=== PATIENT | female | born 1935 ===

== ENCOUNTER 2017-02-12 11:26 | Inpatient (IN) | payer MEDICARE, OTHER ==
[2017-02-12] VITALS (11 sets, daily range): BP systolic 98–151; BP diastolic 39–68; PULSE 68–102; RESP 17–18; Ht 160 cm; Wt 52.7 kg
[~2017-02-12] VITALS: Ht 160 cm; Wt 52.7 kg
--- NOTE | 2017-02-12 11:46 | ERD ---
ER Documentation Chief Complaint Chief Complaint Weakness and altered mental status HPI Patient is nonverbal and is unable to provide any history obtained partly from transferring paramedics and the patient's family. 81-year-old female with a history of hypertension and severe dementia presents to the ED via rescue ambulance with worsening weakness and altered mental status. As per family patient was in her usual state of health until 2 weeks ago when she began to have a rapid decline. She was recently placed in hospice care and over the last 4-5 days has had no oral intake and has worsened significantly and now not responsive. Family has changed her request regarding resuscitation status and care and now would like everything possible done to return the patient to her former physical condition. No documented fevers. No further history available. ROS Unobtainable except as per HPI due to the patient's clinical condition Medications Home Meds Reported Medications Risperidone* (Risperdal*) 0.25 Mg Tablet, 0.25 MG PO BID, TAB 02/12/17 Trazodone Hcl* (Trazodone Hcl*) 150 Mg Tablet, 150 MG PO QHS, #30 TAB 02/12/17 Tramadol Hcl* (Ultram*) 50 Mg Tablet, 50 MG PO BID Y for PAIN, TAB 02/12/17 Citalopram Hydrobromide* (Citalopram Hydrobromide*) 40 Mg Tablet, 40 MG PO QAM, #30 TAB 02/12/17 Oxybutynin Chloride* (Ditropan*) 5 Mg Tab, 5 MG PO BID, TAB 02/12/17 Gabapentin* (Gabapentin*) 300 Mg Capsule, 300 MG PO BID, #60 CAP 02/12/17 Lovastatin* (Lovastatin*) 20 Mg Tablet, 20 MG PO HS, TAB 02/12/17 Allergies Allergies: Coded Allergies: Unable to Assess (Verified Allergy, Severe, 02/12/17) PMhx/Soc Reviewed in chart. As per HPI. Was on hospice care until today. History of Surgery: No Hx Neurological Disorder: Yes (Alzheimer's disease) Hx Respiratory Disorders: No Hx Cardiac Disorders: Yes (Hypertension) Hx Psychiatric Problems: No Hx Miscellaneous Medical Probl: Yes (Osteoporosis) Hx Alcohol Use: No Hx Substance Use: No Hx Tobacco Use: No FmHx No family history relevant to presenting complaint Physical Exam Vitals Vital Signs Date Time Temp Pulse Resp B/P Pulse Ox O2 Delivery O2 Flow Rate FiO2 02/12/17 13:27 90 19 129/101 100 Nasal Cannula 4.0 02/12/17 13:11 94 19 123/62 100 Nasal Cannula 2.0 02/12/17 12:20 Nasal Cannula 2 02/12/17 12:18 93 21 100/68 100 Physical Exam Const: Unresponsive. Severe distress Head: Atraumatic Eyes: Normal Conjunctiva ENT: Normal External Ears, Nose and Mouth. MM Dry. Neck: No JVD. Nontender. Resp: Poor respiratory effort. Diminished at the bases. No rales, rhonchi or wheezes. Cardio: Regular rate and rhythm, no murmurs Abd: Soft, non tender, no masses. No rebound or guarding. Skin: No petechiae or rashes. Pale. poor skin turgor Back: No midline or flank tenderness Ext: No cyanosis, or edema Neur: Unresponsive Physical exam is truncated due to the constraints imposed by the patient's clinical condition Result Diagram: 02/12/17 1215 02/12/17 1215 Results 24 hrs Laboratory Tests Test 02/12/17 12:15 02/12/17 13:00 White Blood Count 22.610^3/ul Red Blood Count 3.9510^6/ul Hemoglobin 12.5g/dl Hematocrit 41.6% Mean Corpuscular Volume 105.3fl Mean Corpuscular Hemoglobin 31.6pg Mean Corpuscular Hemoglobin Concent 30.0g/dl Red Cell Distribution Width 14.6% Platelet Count 08738^3/UL Mean Platelet Volume 12.7fl Neutrophils % % Segmented Neutrophils % (Manual) 72% Band Neutrophils % (Manual) 12% Lymphocytes % % Lymphocytes % (Manual) 9% Monocytes % % Monocytes % (Manual) 5% Eosinophils % % Basophils % % Metamyelocytes % (manual) 2% Nucleated Red Blood Cells % 0.2/100WBC Neutrophils # 10^3/ul Neutrophils # (Manual) 16.910^3/ul Band Neutrophils # 2.710^3/ul Absolute Lymphocytes (Manual) 2.010^3/ul Lymphocytes # 10^3/ul Monocytes # 10^3/ul Absolute Monocytes (Manual) 1.110^3/ul Eosinophils # 10^3/ul Basophils # 10^3/ul Metamyelocytes # 0.410^3/ul Nucleated Red Blood Cells # 10^3/ul Platelet Estimate NORMAL Poikilocytosis 1+ Anisocytosis 1+ Macrocytosis 1+ Prothrombin Time 17.2Sec Prothrombin Time Ratio 1.3 INR International Normalized Ratio 1.38 Activated Partial Thromboplast Time 29.5Sec Sodium Level 178mmol/L Potassium Level 6.3mmol/L Chloride Level 141mmol/L Carbon Dioxide Level 18mmol/L Anion Gap 25 Blood Urea Nitrogen 215mg/dl Creatinine 8.60mg/dl Glucose Level 151mg/dl Lactic Acid Level 2.0mmol/L Calcium Level 9.1mg/dl Total Bilirubin 0.0mg/dl Direct Bilirubin 0.00mg/dl Indirect Bilirubin 0.0mg/dl Aspartate Amino Transf (AST/SGOT) 64IU/L Alanine Aminotransferase (ALT/SGPT) 80IU/L Alkaline Phosphatase 154IU/L Troponin I 0.134ng/ml Total Protein 6.4g/dl Albumin 3.2g/dl Globulin 3.20g/dl Albumin/Globulin Ratio 1.00 Urine Color YELLOW Urine Clarity TURBID Urine pH 7.0 Urine Specific [place] 1.015 Urine Ketones TRACEmg/dL Urine Nitrite NEGATIVEmg/dL Urine Bilirubin NEGATIVEmg/dL Urine Urobilinogen 2+mg/dL Urine Leukocyte Esterase 3+Matheus/ul Urine Microscopic RBC 46/HPF Urine Microscopic WBC > 182/HPF Urine Squamous Epithelial Cells FEW/HPF Urine Bacteria MANY/HPF Urine Granular Casts MODERATE/HPF Urine Mucus FEW/HPF Urine Hemoglobin NEGATIVEmg/dL Urine Glucose NEGATIVEmg/dL Urine Total Protein 3+mg/dl Current Medications Medications (Trade) Dose Ordered Sig/Loy Route PRN Reason Start Time Stop Time Status Last Admin Dose Admin Sodium Chloride 1860 ml 1,860 ml BOLUS OVER 2 HOURS STAT IV* 02/12/17 11:48 02/12/17 11:51 DC 02/12/17 12:21 Cefepime HCl 50 ml @ 100 mls/hr ONCE STAT IVPB 02/12/17 11:48 02/12/17 12:17 DC 02/12/17 12:49 Vancomycin HCl (Vancocin) 250 ml @ 125 mls/hr ONCE ONCE IVPB 02/12/17 12:00 02/12/17 13:59 DC 02/12/17 13:11 Albuterol (Proventil 0.5% (Neb)) 15 mg ONCE STAT INH 02/12/17 13:31 02/12/17 13:34 DC 02/12/17 14:11 Sodium Bicarbonate (Na Bicarb 8.4% Syg) 50 ml ONCE STAT IV 02/12/17 13:31 02/12/17 13:34 DC 02/12/17 13:53 Calcium Chloride (Ca Chloride 10% Syg) 1,000 mg ONCE STAT IV 02/12/17 13:31 02/12/17 13:34 DC 02/12/17 13:54 Insulin Human Regular (Humulin R) 10 unit ONCE STAT IV 02/12/17 13:31 02/12/17 13:34 DC 02/12/17 14:01 LABS: Leukocytosis, elevated BUN/creatinine, hyperkalemia, hypernatremia, pyuria EKG: TIME: 12: 03. Sinus tachycardia. Ventricular rate 97. Second-degree AV block Mobitz type I. Incomplete right bundle branch block. Q waves in leads II , III and aVF. No acute ST segment elevation or depression. EP Interpretation : Abnormal EKG. IMAGING: PROCEDURE: XR Chest. CLINICAL INDICATION: Possible Sepsis TECHNIQUE: Frontal chest x-ray was obtained. COMPARISON: None. FINDINGS: Heart is not enlarged. Mediastinum is not widened. No hilar mass is seen. Lungs are clear of any infiltrates. There is a questionable 15 mm suprahilar noncalcified nodule in the left lung. No effusion or pneumothorax is seen. IMPRESSION: No evidence for active cardiopulmonary disease. Question suprahilar nodule left lung. Consider CT for further evaluation. .Niraj Tee MD, MD Date Time Electronically viewed and signed by .Niraj Tee MD, on 02/12/2017 13: 04 .A/ Procedures/MDM DOCUMENTS REVIEWED: ED nurse, no prior records MEDICAL DECISION MAKIN-year-old female with a history of hypertension and severe dementia presents to the ED via rescue ambulance with worsening weakness and altered mental status. Recently on hospice care but family change her mind today. Patient with multiple criteria for systemic inflammatory response syndrome and severe sepsis. Good renal failure and severe dehydration likely secondary to decreased oral intake. Critical hyperkalemia with EKG changes treated aggressively. Extensive counseling of patient's family regarding resuscitation status and they have agreed to DNR/DNI but would like everything done short of intubation and chest compressions. Further palliative care consultation will be necessary. Conversation is pending regarding dialysis. Patient's infectious symptoms have not stabilized and the patient is at risk of rapid decompensation. The patient will be admitted for aggressive hydration, antibiotic therapy, nephrology consultation and infectious source control. Severe Sepsis criteria: Infectious source: Urinary tract infection End organ damage indicated by: Lactate: 2.0 mmol/L Hypotension (SBP < 90 or >40 mmHG drop or MAP < 65) Pantry Steward/Stewardess > 2.0 Sepsis Management: Time of recognition of severe sepsis/septic shock: 12:00 Within 3 hours of recognition: Blood cultures x 2 before broad-spectrum antibiotics: Yes 30 ml/kg NS bolus Completed Initial lactate 2.0 Repeat lactate Pending Septic Shock Assessment: Any lactic acid > 4.0 No Persistent hypotension (SBP < 90 or 40 mmHg drop, MAP < 65) despite 30 mL/kg IV fluid bolus No Accepting Care Team Current data and ongoing care discussed. Time: 13:30 Admitting Physician: Dr Tarik Hope Mammal Keeper(s): Dr Reed Outstanding Data: Repeat lactate Critical Care Time: 45 minutes Treatments/Evaluations: Close monitoring and treatment of unstable vital signs, cardiorespiratory, and neurologic status, while maintaining tight balance of fluid, respiratory, and cardiac interventions. This includes the administration of emergency fluid management while maintaining close respiratory support as well as the provision of immediate and broad-spectrum antibiotic therapy, while performing a simultaneous assessment for possible sources in order to direct targeted therapy. This time includes extensive counseling of the patient's family. This time also includes the consideration for invasive and chemical support to prevent cardiopulmonary collapse. This time does not include all procedures stated elsewhere in this record. This time also includes reviewing old records, labs and radiological studies. This time includes examining and re- examining the patient. Additionally, this time also includes arranging care with admitting and consulting physicians. Counseled family regarding diagnosis, diagnostic results and plan for admission. CALLS/CONSULTS: Time 13:30, Dr. Hope, agrees with admission to telemetry and requests nephrology consultation with Dr Reed. CALLS/CONSULTS: Time 13:40, Dr. Reed, Recommends IV hydration, Amin catheter , consent for dialysis and will consult. PATIENT CARE TRANSITIONED: Time: 13:40, Dr. Hope. Departure Diagnosis: Primary Impression: Severe sepsis Additional Impressions: Acute renal failure Acute renal failure type: unspecified Qualified Code: N17.9 - Acute renal failure, unspecified acute renal failure type Hyperkalemia Severe dehydration Urinary tract infection Urinary tract infection type: site unspecified Hematuria presence: without hematuria Qualified Code: N39.0 - Urinary tract infection without hematuria, site unspecified DNR (do not resuscitate) Condition: Critical LISA LEE MD Feb 12, 2017 11:46 Critical Care Time: 45 minutes Treatments/Evaluations: Close monitoring and treatment of unstable vital signs, cardiorespiratory, and neurologic status, while maintaining tight balance of fluid, respiratory, and cardiac interventions. This includes the administration of emergency fluid management while maintaining close respiratory support as well as the provision of immediate and broad-spectrum antibiotic therapy, while performing a simultaneous assessment for possible sources in order to direct targeted therapy. This time includes discussing the case with the patient and the patient's family. This time also includes the consideration for invasive and chemical support to prevent cardiopulmonary collapse. This time does not include all procedures stated elsewhere in this record. This time also includes reviewing old records, labs and radiological studies. This time includes examining and re-examining the patient. Additionally, this time also includes arranging care with admitting and consulting physicians. Counseled family regarding diagnosis, diagnostic results and plan for admission. CALLS/CONSULTS: Time 13:30, Dr. Hope, Recommends []. CALLS/CONSULTS: Time 13:40, Dr. Reed, Recommends IV hydration, Amin catheter and will consult. PATIENT CARE TRANSITIONED: Time: 13:40, Dr. Hope. Departure Diagnosis: Primary Impression: Severe sepsis Additional Impressions: Acute renal failure Acute renal failure type: unspecified Qualified Code: N17.9 - Acute renal failure, unspecified acute renal failure type Hyperkalemia Severe dehydration Urinary tract infection Urinary tract infection type: site unspecified Hematuria presence: without hematuria Qualified Code: N39.0 - Urinary tract infection without hematuria, site unspecified DNR (do not resuscitate) Condition: Critical LISA LEE MD Feb 12, 2017 11:46
[2017-02-12] MEDS ORDERED: CEFEPIME 2GM/50 ML (PMX) 50 ML IVPB STA (11:48)
[2017-02-12] MEDS ORDERED: SODIUM CHLORIDE 0.9% 1L BAG IV* STA (11:48)
[2017-02-12] MEDS ORDERED: VANCOMYCIN 1 GM (PMX) 250 ML IVPB ONE (12:00)
[2017-02-12 12:38] LABS: HEMATOCRIT 41.6 % (37.0-47.0); HEMOGLOBIN 12.5 g/dl (12.0-16.0); MEAN CORPUSCULAR HEMOGLOBIN 31.6 pg (29.0-33.0); MEAN CORPUSCULAR VOLUME 105.3 fl (82.0-101.0); MEAN PLATELET VOLUME 12.7 fl (7.4-10.4); NUCLEATED RED BLOOD CELLS% 0.2 /100WBC (0.0-0.0); PLATELET COUNT 209 10^3/UL (140-415); RED BLOOD COUNT 3.95 10^6/ul (4.20-5.40); RED CELL DISTRIBUTION WIDTH 14.6 % (11.5-14.5); WHITE BLOOD COUNT 22.6 10^3/ul (4.8-10.8)
[2017-02-12 12:55] LABS: POSITIVE DIFF @See below
[2017-02-12 13:04] LABS: INR 1.38; PARTIAL THROMBOPLASTIN TIME 29.5 Sec (25.0-35.0); PROTIME 17.2 Sec (11.9-14.9); PT RATIO 1.3
--- NOTE | 2017-02-12 13:04 | RADRPT ---
PROCEDURE: XR Chest. CLINICAL INDICATION: Possible Sepsis TECHNIQUE: Frontal chest x-ray was obtained. COMPARISON: None. FINDINGS: Heart is not enlarged. Mediastinum is not widened. No hilar mass is seen. Lungs are clear of any inf iltrates. There is a questionable 15 mm suprahilar noncalcified nodule in the left lung. No effusion or pneumothorax is seen. IMPRESSION: No evidence for active cardiopulmonary disease. Question suprahilar nodule left lung. Consider CT fo r further evaluation. .Niraj Tee MD, MD Date Time Electronically viewed and signed by .Niraj Tee MD, MD on 02/12/2017 13:04 .A/
[2017-02-12 13:13] LABS: ADD UMIC YES; UR ASCORBIC ACID 20 mg/dL (NEGATIVE); UR BACTERIA MANY /HPF (NONE SEEN); UR BILIRUBIN (Dip) NEGATIVE (NEGATIVE); UR BLOOD (Dip) NEGATIVE (NEGATIVE); UR CLARITY TURBID (CLEAR); UR COLOR YELLOW (YELLOW); UR GLUCOSE (Dip) NEGATIVE (NEGATIVE); UR KETONES (Dip) TRACE mg/dL (NEGATIVE); UR LEUKOCYTE ESTERASE (Dip) 3+ Leu/ul (NEGATIVE); UR MUCUS FEW /HPF (NONE SEEN); UR NITRITE (Dip) NEGATIVE (NEGATIVE); UR NONSQUAMOUS EPITHELIAL CELL 2 /HPF (NONE SEEN); UR RBC 46 /HPF (0-5); UR SPECIFIC GRAVITY (Dip) 1.015 (1.003-1.030); UR SQUAMOUS EPITHELIAL CELL FEW /HPF (FEW); UR TOTAL PROTEIN (Dip) 3+ mg/dl (NEGATIVE); UR UROBILINOGEN (Dip) 2+ mg/dL (NEGATIVE)
[2017-02-12 13:16] LABS: ALBUMIN 3.2 g/dl (3.3-4.9); CALCIUM 9.1 mg/dl (8.4-10.2); TOTAL PROTEIN 6.4 g/dl (6.1-8.1)
[2017-02-12 13:18] LABS: CREATININE 8.6 mg/dl (0.44-1.00); POTASSIUM 6.3 mmol/L (3.5-5.1)
[2017-02-12 13:24] LABS: ANISOCYTOSIS 1+ (0-0); METAMYELOCYTES %M 2 % (0-0); MONOCYTES % (M) 5 % (0-11); PLATELET ESTIMATE NORMAL; POIKILOCYTOSIS 1+ (0-0)
[2017-02-12] MEDS ORDERED: ALBUTEROL 0.5% (NEB) 2.5 MG/0.5 ML AMP INH STA (13:31)
[2017-02-12] MEDS ORDERED: NA BICARBONATE 8.4% 50 ML SYG IV STA (13:31)
[2017-02-12] MEDS ORDERED: CA CHLORIDE 10% 10 ML SYRINGE IV STA (13:31)
[2017-02-12] MEDS ORDERED: INSULIN REGULAR, HUMAN 100 UNIT/1 ML 3ML VIAL IV STA (13:31)
[2017-02-12 13:36] LABS: TROPONIN-I 0.134 ng/ml (0.00-0.12)
[2017-02-12] MEDS ORDERED: DEXTROSE 50% 50 ML SYRINGE IV PRN (14:00)
[2017-02-12] MEDS ORDERED: LIDOCAINE 1% (MPF) 5 ML VIAL SC ONE (14:00)
[2017-02-12] MEDS ORDERED: ACETAMINOPHEN 325 MG TAB PO PRN (14:00)
[2017-02-12] MEDS ORDERED: ONDANSETRON 4 MG INJ IV PRN ×2 (14:00→15:30)
[2017-02-12] MEDS ORDERED: OXYB5TAB7 PO (14:22)
[2017-02-12] MEDS ORDERED: LOVA20TA PO (14:22)
[2017-02-12] MEDS ORDERED: GABA300C16 PO (14:22)
[2017-02-12] MEDS ORDERED: CITA-104 PO (14:23)
[2017-02-12] MEDS ORDERED: TRAM-40 PO (14:23)
[2017-02-12] MEDS ORDERED: TRAZ150T65 PO (14:23)
[2017-02-12] MEDS ORDERED: RISP0.2553 PO (14:26)
[2017-02-12] MEDS: SOD CHLORIDE 0.45% 1,000 ML IV SCH (15:18)
--- NOTE | 2017-02-12 15:25 | HP ---
Date/Time of Note Date/Time of Note DATE: 02/12/17 TIME: 15:25 Assessment/Plan VTE Prophylaxis VTE Prophylaxis Intervention: SCD's Lines/Catheters Urinary Cath still in place: Yes Reason Cath still needed: urinary retention Assessment/Plan Assessment/Plan 1. Severe sepsis secondary to dehydration and UTI - Patient has been on comfort care/ hospice for the past 2 weeks per son. Has not had PO intake in the past 3 days which is consistent with Hospice. When explained to son, he states he was not well informed about what hospice entailed and would still like to pursue care for his mother. - IVF NSS started but switched to 03/01 NSS - LA 2.0 2. UTI - UA+ for infection and urine culture sent - Most likely secondary to dehydration - will treat with ceftriaxone for now 3. PANCHO on CKD - Patient baseline Cr 2.2 and renal failure is secondary to dehydration and natural progression of dying - Dr. Reed on board and appreciated consultation. Discussion with son held and would like to proceed with HD. Placement of Oliver cath by Dr. Roque appreciated - Will continue to monitor for renal function improvement 4. Dehydration - Continue IV hydration 5. Severe hypernatremia - / NS and will monitor 6. Hyperkalemia - given insulin, dextrose, and albuterol in the ED - will continue monitoring 7. Transaminitis - secondary to dehydration 8. Leukocytosis - most likely reactive as well as component of infection given elevated neutrophils. 9. Elevated troponin - most likely secondary to elevated Cr - EKG shows sinus tachycardia 10. Dementia - continue medications 11. Code status - DNR/DNI 12. Diet - NG tube - will start tube feeds tomorrow if remains stable 13. GI ppx - PPI 14. DVT ppx - SCD 15. Disposition - Admit to telemetry for close monitoring HPI/ROS Admit Date/Time Admit Date/Time 02/12/17 Hx of Present Illness 81 yo F with PMH dementia and CKD presented to ED from SNF due to AMS. Patient nonresponsive and history obtained from son at bedside as well as ED staff. In ED Patient was found severely dehydrated with severe sepsis secondary to UTI with Cr 8.6 and BUN 215. She was also found to have Na 178 and K 6.3. Nephrology was consulted due to PANCHO and electrolyte abnormalities and offered hemodialysis if patients family agreeable. Per son patient has a history of CKD but baseline Cr 2.2. Denies any other medical issues that he is aware of. Patient was living at home but with dementia, family was unable to care for her and she was transitioned to comfort care/hospice. Per son patient was eating and talking 2 weeks ago but over the past 3 days while has not been eating or having any type of PO intake. Explained what hospice entailed and son states that he was misinformed and did not want to stop all treatment at this time although would continue patient with DNR/DNI code status. Spoke with the son in detail about what his wishes were for his mother and how aggressive he would like us to treat her. He discussed with ex who is an RN at [facility] and would like to proceed with HD for at least a week to see if kidney recovery would be attained and also to give his father time to come to terms about the severity of her condition. Patient also opted for NG tube placement for feeding as well. NSS was running and changed to 1/2 NSS given hypernatremia. ROS All 12 systems reviewed and unable to obtain full ROS due to altered mental status. PMH/Family/Social Past Medical History Medical History: renal disease, other (dementia) Past Surgical History Past Surgical Hx: no surgical history Family History Significant Family History: no pertinent family hx Social History Alcohol Use: none Smoking Status: Never smoker Drug Use: none Exam/Review of Systems Vital Signs Vitals Vital Signs Date Time Temp Pulse Resp B/P Pulse Ox O2 Delivery O2 Flow Rate FiO2 02/12/17 14:23 105 17 115/73 18 Room Air 4.0 Exam Constitutional: frail, non-verbal, other (non responsive to deep stimuli) Psych: other (unresponsive) Head: atraumatic, normocephalic Eyes: PERRL, nl conjunctiva, nl lids, nl sclera ENMT: other (dry mucous membranes) Neck: supple, No jvd Respiratory: clear to auscultation, diminished breath sounds, other (mouth breathing), No labored breathing, No wheezing Cardiovascular: other (tachycardia), No diastolic murmur, No irregular rhythm Gastrointestinal: non-tender, soft, No distended, No rebound or guarding Musculoskeletal: other (muscle wasting) Extremities: No calf tenderness, No edema Neurological: unresponsive Skin: other (poor skin turgor) Lymph: nl lymph nodes Labs Result Diagram: 02/12/17 1215 02/12/17 1215 Medications Medications Home medications reviewed Current Medications Dextrose ONCE PRN IV POC BLOOD GLUCOSE <250 MG/DL Last administered on t 13:48; Admin Dose 25 ML; Start 02/12/17 at 14:00 Sodium Chloride (1/2 NS) 1,000 ml @ 100 mls/hr Q10H IV ; Start 02/12/17 at 15: 18; Status UNV Ondansetron HCl (Zofran Inj) 4 mg Q6H PRN IV NAUSEA AND/OR VOMITING; Start at 15:30; Status UNV Acetaminophen (Tylenol Supp) 650 mg Q6H PRN SC PAIN LEVEL 1-3 OR FEVER; Start 02/12/17 at 15:30; Status UNV Bisacodyl (Dulcolax Supp) 10 mg DAILY PRN SC CONSTIPATION; Start 02/12/17 at 15:30; Status UNV Procedures Procedures PROCEDURE: XR Chest. CLINICAL INDICATION: Possible Sepsis TECHNIQUE: Frontal chest x-ray was obtained. COMPARISON: None. FINDINGS: Heart is not enlarged. Mediastinum is not widened. No hilar mass is seen. Lungs are clear of any infiltrates. There is a questionable 15 mm suprahilar noncalcified nodule in the left lung. No effusion or pneumothorax is seen. IMPRESSION: No evidence for active cardiopulmonary disease. Question suprahilar nodule left lung. Consider CT for further evaluation. ZURI PHIPPS MD Feb 12, 2017 15:25
[2017-02-12] MEDS ORDERED: NACL 0.9% 3 ML SYG IV SCH (15:30)
[2017-02-12] MEDS ORDERED: BISACODYL 10 MG SUPP PR PRN (15:30)
[2017-02-12] MEDS ORDERED: ACETAMINOPHEN 650 MG SUPP PR PRN (15:30)
[2017-02-12] MEDS: CEFTRIAXONE 1 GM/50 ML (PMX) 50 ML IVPB SCH (17:02)
[2017-02-12] MEDS ORDERED: MANNITOL 25% 50 ML INJ IV* ONE ×2 (18:00)
[2017-02-12] MEDS: ATORVASTATIN 10 MG TAB PO SCH (21:00)
[2017-02-12] MEDS: OXYBUTYNIN 5 MG TAB NGT SCH (21:00)
[2017-02-12 22:14] LABS: CALCIUM 8.9 mg/dl (8.4-10.2); CREATININE 6.69 mg/dl (0.44-1.00); POTASSIUM 4.7 mmol/L (3.5-5.1)
[2017-02-12] MEDS ORDERED: SOD CHLORIDE 0.9% 500 ML IV ONE (23:30)
[2017-02-12 23:51] LABS: CALCIUM 8.9 mg/dl (8.4-10.2); CREATININE 6.82 mg/dl (0.44-1.00); MAGNESIUM 2.6 mg/dl (1.7-2.5); POTASSIUM 4.7 mmol/L (3.5-5.1)
[2017-02-13] VITALS (16 sets, daily range): BP systolic 2–121; BP diastolic 30–59; PULSE 70–120; RESP 16–20
[2017-02-13] MEDS ORDERED: VANCOMYCIN IV PER PHARMACY XX SCH
[2017-02-13 00:18] LABS: Allen Test ACCEPTAB; Arterial Base Excess -4.3 mmol/L (-3.0-3); Arterial COHb 0.4 % (0.0-3.0); Arterial Fraction of Oxyhgb 98.2 % (93.0-99.0); Arterial HCO3 19.5 mmol/L (22.0-26.0); Arterial MetHb 0.3 % (0.0-1.5); MODE NASAL CANNULA
[2017-02-13] MEDS: SOD CHLORIDE 0.45% 1,000 ML IV SCH ×4 (01:18→20:06)
--- NOTE | 2017-02-13 06:25 | OPR ---
DATE OF OPERATION: 02/12/2017 PREOPERATIVE DIAGNOSIS: Renal failure. POSTOPERATIVE DIAGNOSIS: Renal failure. OPERATION PERFORMED: Right femoral hemodialysis catheter placement. SURGEON: Rafat Roque MD. ANESTHESIA: Local. CONSENT: Risks, benefits, complications, alternative therapies explained to the patient and the [facility], consent obtained. OPERATIVE TECHNIQUE: The patient was placed in supine position, prepped and draped in usual sterile fashion, 1% lidocaine was used throughout the operation for local anesthesia. Access was gained in the right common femoral vein. Guidewire was advanced through without any difficulty. Subcutaneou s tissues dilated. A 20 cm dialysis catheter advanced over guidewire, secured to skin using silk fletcher tures. Both ports of the catheter were aspirated and injected using saline solution. The patient t olerated procedure well. Dictated By: RAFAT ÁLVAREZ/FANNY Conf#: [id number] DID#: [id number]
--- NOTE | 2017-02-13 06:41 | CONS ---
DATE OF ADMISSION: 02/12/2017 DATE OF CONSULTATION: 02/12/2017 NEPHROLOGY CONSULTATION REASON FOR CONSULTATION: Acute kidney injury, hyperkalemia, uremia. REQUESTING PHYSICIAN: Giulia Hope. HISTORY OF PRESENT ILLNESS: This is an 81-year-old female with a past medical history of advanced A lzheimer dementia, history of chronic kidney disease stage IIIB/IV with a baseline creatinine of 2.2 mg/dL, who presented to [facility] Emergency Room due to altered mental status. The patient apparently was on hospice care due to her advanced Alzheimer dementia. However, after s everal days of being on hospice, and family requested to remove hospice and wanted full treatment fo r their mother. As a result, the patient came into the emergency room. Upon arrival, patient has f ound to be in acute encephalopathy. Laboratory data showed a sodium of 178, potassium 6.3, BUN of 2 15, creatinine 8.6, white count 22.6. In the emergency room, the patient also had a chest x-ray, wh ich showed no evidence of active disease. In the emergency room, the patient was given over 3 liter s of IV fluid, IV antibiotics, as well as insulin and bicarbonate, and albuterol. In terms of the patient's renal history, the patient has had chronic kidney disease with baseline cr eatinine 2.2 mg/dL. There has been no reports of any rashes, hemoptysis, hematemesis, hematochezia. PAST MEDICAL HISTORY: History of dementia, history of chronic kidney disease. PAST SURGICAL HISTORY: None. FAMILY HISTORY: Not significant. ALLERGIES: NO KNOWN DRUG ALLERGIES. MEDICATIONS: The patient's medications have been reviewed. REVIEW OF SYSTEMS: Unable to do adequate review of systems as patient is obtunded. Pertinent posit stanislaw as obtained by reviewing medical records, speaking to hospital staff, stated in HPI, otherwise negative. PHYSICAL EXAMINATION: VITAL SIGNS: Blood pressure is 117/70, respiration 19, pulse 94. GENERAL: The patient is frail, weak, cachectic. HEENT: Head is normocephalic. The patient has dry mucous membranes. NECK: Supple. HEART: Tachycardic. LUNGS: Show diminished breath sounds at the base. ABDOMEN: Soft, nontender to palpation without rebound or guarding. EXTREMITIES: Negative for clubbing, cyanosis or skin turgor. DERMATOLOGIC: No rashes. MUSCULOSKELETAL: No joint effusions. NEUROLOGIC: Limited exam due to lack of patient cooperation. LABORATORY DATA: Shows sodium 178, potassium 6.3, chloride 141, BUN 215, creatinine 8.60, troponin 0.134, bicarbonate 18. White count 22.6, platelet count 209, hemoglobin 12.5. The patient's chest x-ray was reviewed. ASSESSMENT AND PLAN: 1. Oligoanuric acute kidney injury on top of chronic kidney disease stage IV with a previous baseli ne creatinine 2.2 mg/dL. Etiology of acute kidney injury is secondary to acute tubular necrosis due to prerenal volume depletion. The patient's urinalysis shows evidence of coarse granular casts con sistent with tubular injury and proteinuria. The patient's family wants dialysis. Dr. Hope spoke with the patient's family and they agree for dialysis. We will therefore proceed by having a Mj on catheter placed by Dr. Roque. Once the catheter is placed, the patient will be initiated on dialysis. Dialysis will be done until on an F160 dialyzer with blood flow rates of 150 to 200 mL pe r minute. Dialysis low blood flow rates of 300 to 400 mL per minute. The patient will be given man nitol 25 grams IV with hemodialysis. No ultrafiltration will be performed. The patient is at high risk for dialysis disequilibrium syndrome. We will monitor very closely. 2. Hypernatremia. The patient has a free water deficit of over 6 liters. The patient will be dial yzed on a 160 sodium bath. The patient will also be given hypertonic fluid with goal of correction no more than 10 to 12 mEq in the next 24 hours. We will monitor serum sodium levels closely. 3. Hyperkalemia secondary to acute kidney injury. The patient will be dialyzed on a 2 potassium ba th. 4. Metabolic acidosis secondary to acute kidney injury. We will perform hemodialysis on a 40 bicar bonate bath. 5. Uremia, secondary to acute kidney injury. We will continue hemodialysis as stated above. We wi ll monitor closely for disequilibrium syndrome. 6. Severe sepsis secondary to urinary tract infection. Continue current antibiotic regimen. 7. Elevated troponin, possibly due to acute kidney injury, demand ischemia versus acute coronary sy ndrome. We will monitor serial troponins. Followup EKG. Thank you, Dr. Hope, for this interesting consult. It will be a pleasure to follow patient with tara carcamo throughout the hospital course. Dictated By: CASA CROSS/FANNY Conf#: [id number] DID#: [id number]
[2017-02-13] MEDS ORDERED: SOD CHLORIDE 0.9% 500 ML IV ONE (07:30)
[2017-02-13 07:40] LABS: ABNORMAL IP MESSAGE 1; HEMATOCRIT 31.6 % (37.0-47.0); HEMOGLOBIN 9.4 g/dl (12.0-16.0); MEAN CORPUSCULAR HEMOGLOBIN 31.3 pg (29.0-33.0); MEAN CORPUSCULAR HGB CONC 29.7 g/dl (32.0-37.0); MEAN CORPUSCULAR VOLUME 105.3 fl (82.0-101.0); MEAN PLATELET VOLUME 13.7 fl (7.4-10.4); NUCLEATED RED BLOOD CELLS% 0.4 /100WBC (0.0-0.0); PLATELET COUNT 90 10^3/UL (140-415); RED CELL DISTRIBUTION WIDTH 14.7 % (11.5-14.5); WHITE BLOOD COUNT 19.3 10^3/ul (4.8-10.8)
[2017-02-13 07:50] LABS: POSITIVE DIFF @See below
[2017-02-13 08:11] LABS: ALBUMIN 2.3 g/dl (3.3-4.9); ALBUMIN/GLOBULIN RATIO 0.79; BILIRUBIN,INDIRECT 0.1 mg/dl (0-1.1); BILIRUBIN,TOTAL 0.1 mg/dl (0.2-1.3); CALCIUM 8.3 mg/dl (8.4-10.2); MAGNESIUM 2.5 mg/dl (1.7-2.5); POTASSIUM 4.9 mmol/L (3.5-5.1); TOTAL PROTEIN 5.2 g/dl (6.1-8.1)
[2017-02-13 08:30] LABS: CREATININE 7.01 mg/dl (0.44-1.00)
[2017-02-13] MEDS: CITALOPRAM 20 MG TAB NGT SCH (09:00)
[2017-02-13] MEDS: OXYBUTYNIN 5 MG TAB NGT SCH ×2 (09:00→20:06)
[2017-02-13 10:21] LABS: ANISOCYTOSIS 1+ (0-0); BASOPHILS % (M) 1 % (0-2); ERYTHROBLAST% (NRBC) (M) 1 % (0-0); GIANT THROMBO% (M) 1 % (0-0); METAMYELOCYTES %M 1 % (0-0); MICROCYTOSIS 1+ (0-0); MONOCYTES % (M) 11 % (0-11); OVALOCYTES 1+ (0-0); PLATELET ESTIMATE DECREASED; POIKILOCYTOSIS 1+ (0-0)
[2017-02-13] MEDS ORDERED: MANNITOL 25% 50 ML INJ IV* ONE ×2 (11:30→12:30)
--- NOTE | 2017-02-13 11:45 | RADRPT ---
PROCEDURE: US upper extremity Venous left. CLINICAL INDICATION: Cold blue left hand , poor circulation to left hand. TECHNIQUE: Multiple sonographic images of the left upper extremity venous system was obtained util izing grayscale, color-flow, compressive sonography and doppler imaging with augmentation. The imag es were reviewed on a PACS workstation. COMPARISON: None. FINDINGS: There is noncompressible thrombus in the cephalic vein of the left forearm. The cephalic vein in the left upper arm and the basilic vein in the forearm are not visualized. There is normal compressibil ity and flow within the left internal jugular vein, subclavian vein, axillary vein, brachial vein an d basilic vein in the left upper arm. The radial and ulnar veins are small and suboptimally visualiz ed. Arterial flow is seen in the left radial and ulnar arteries. IMPRESSION: Thrombus in cephalic vein of the left forearm. No evidence of left upper extremity deep venous throm bosis. Please see above. RPTAT: HJES .Davey Adorno MD, MD Date Time Electronically viewed and signed by .Davey Adorno MD, on 02/13/2017 11:45 .S/
--- NOTE | 2017-02-13 14:16 | PN ---
DATE: 02/13/2017 SUBJECTIVE: The patient yesterday underwent hemodialysis. The patient was dialyzed very carefully as to avoid disequilibrium syndrome. No other acute events noted. The patient remains obtunded. OBJECTIVE: VITAL SIGNS: Blood pressure is 84/53, respirations 16, pulse 70, temperature 98.7. HEENT: Head is normocephalic. NECK: Supple. HEART: Regular rate. LUNGS: Show diminished breath sounds at the base. ABDOMEN: Soft, nontender to palpation. No rebound or guarding. EXTREMITIES: Negative for clubbing, cyanosis, no edema. DERMATOLOGIC: No rashes. MUSCULOSKELETAL: No joint effusions. NEUROLOGIC: No change in exam. MEDICATIONS: The patient's medications have been reviewed. LABORATORY DATA: Shows sodium 167, potassium 4.9, chloride 132, BUN is 155, creatinine 7.0. White count 19.3, hemoglobin 9.4, platelet count is 90. ASSESSMENT AND PLAN: 1. Oligoanuric acute kidney injury on top of chronic kidney disease stage IV with previous baseline creatinine 2.2 mg/dL. Etiology of acute kidney injury is secondary to acute tubular necrosis due t o prerenal volume depletion. The patient's urinalysis shows evidence of coarse granular casts consi stent with tubular injury. The patient was initiated on hemodialysis yesterday. The patient was di alyzed carefully for 2 hours on an F160 dialyzer using mannitol and low blood flow and dialysate mukesh w rates to avoid disequilibrium syndrome. The patient will be dialyzed again today for 2 hours on a n F160 dialyzer with mannitol. Will monitor neurological status closely. 2. Hypernatremia. The patient has a free water deficit of over 6 liters. The patient appropriatel y corrected 12 mEq in a 24-hour period. Will dialyze the patient on a 150 sodium bath. Continue hy potonic fluids, monitor serial sodium levels closely. 3. Hyperkalemia secondary to acute kidney injury, improved. 4. Metabolic acidosis secondary to acute kidney injury. Continue dialysis on a 40 bicarbonate bath . 5. Uremia. Etiology secondary to acute kidney injury. Continue hemodialysis as stated above. 6. Severe sepsis secondary to urinary tract infection. Continue current antibiotic regimen. 7. Elevated troponin due to acute kidney injury, possible demand ischemia versus coronary artery di sease. Continue to monitor. Followup EKG. Dictated By: CASA CROSS/FANNY Conf#: [id number] DID#: [id number] CC: Giulia Hope;*[facility]
--- NOTE | 2017-02-13 14:36 | PN ---
Date/Time of Note Date/Time of Note DATE: 02/13/17 TIME: 14:24 Assessment/Plan VTE Prophylaxis VTE Prophylaxis Intervention: SCD's Lines/Catheters IV Catheter Type (from Nrsg): Peripheral IV Urinary Cath still in place: Yes Reason Cath still needed: urinary retention Assessment/Plan Assessment/Plan 1. Severe sepsis secondary to dehydration and UTI - Patient urine culture growing gram negative rods. Currently on Ceftriaxone day 2 - Patient has been on comfort care/ hospice for the past 2 weeks per son. Has not had PO intake in the past 3 days which is consistent with Hospice. When explained to son, he states he was not well informed about what hospice entailed and would still like to pursue care for his mother as she was eating and talking 2 weeks ago - LA fluctuating 2.0 -> 4 -> 2.9 2. UTI - UA+ for infection and awaiting final culture results - Most likely secondary to dehydration - Ceftriaxone 3. PANCHO on CKD - Patient baseline Cr 2.2 and renal failure is secondary to dehydration and natural progression of dying - Dr. Reed on board and appreciated consultation. Continue with HD as tolerated and monitoring electrolytes closely. Na decreased by 10 in 24 hours which is appropriate - Discussed with son and patient on tolerating well but would still like to continue with HD as patient can tolerate. Cr 7.01/ BUN 155 4. Dehydration - 1/2 NS 5. Severe hypernatremia- improving - 1/2 NS and will monitor - decreasing appropriately by 10 in 24 hour period 6. Hyperkalemia- resolved - 4.9 - will continue monitoring 7. Transaminitis- resolved - secondary to dehydration 8. Leukocytosis- trending down - on IV antibiotics. continue monitoring 9. Elevated troponin - most likely secondary to elevated Cr - EKG shows sinus tachycardia 10. Dementia - continue medications 11. L cephalic vein thrombosis - keep limb elevated with warm compress - no anticoagulation at this time per family 12. Disposition - Continue monitoring on telemetry - Family would like some time to see if recovery of kidney function is normal. if no improvement after a few days, would recommend palliative consult to assess goals of care with family Subjective 24 Hr Interval Summary Free Text/Dictation Patient undergoing HD at time of interview and was still unresponsive and hypotensive despite given mannitol. Patient has cyanosis of left hand and US performed shows cephalic thrombus. and son at bedside and discussed patients hypotensive episodes during HD and would still like to continue with HD as she can tolerate. Discussed cephalic clot and anticoagulation which they would not like at this time. Exam/Review of Systems Vital Signs Vitals Vital Signs Date Time Temp Pulse Resp B/P Pulse Ox O2 Delivery O2 Flow Rate FiO2 02/13/17 13:43 98.9 109 18 121/59 94 02/12/17 18:00 Nasal Cannula 3.0 Intake and Output 02/12/17 02/12/17 02/13/17 15:00 23:00 07:00 Intake Total 800 ml 500 ml Output Total 500 ml Balance 300 ml 500 ml Exam Constitutional: frail, nonresponsive, yawning Head: atraumatic, normocephalic Eyes: PERRL, nl conjunctiva, nl lids, nl sclera Neck: supple, No jvd Respiratory: clear to auscultation, diminished breath sounds, No labored breathing, No wheezing Cardiovascular: S1, S2, tachycardia, regular rhythm, no murmurs appreciated Gastrointestinal: non-tender, soft, No distended, No rebound or guarding Musculoskeletal: muscle wasting Extremities: No calf tenderness, No edema, cyanosis of left hand with pulses palpable Neurological: unresponsive Results Result Diagram: 02/13/17 0654 02/13/17 0654 Results 24 hrs Laboratory Tests Test 02/12/17 18:55 02/12/17 21:37 02/12/17 21:40 02/12/17 23:14 Lactic Acid Level 2.8 *H 4.1 *H 2.9 *H Sodium Level 166 *H 166 *H Potassium Level 4.7 4.7 Chloride Level 128 H 129 H Carbon Dioxide Level 20 L 21 Anion Gap 23 H 21 H Blood Urea Nitrogen 147 #H 150 H Creatinine 6.69 H 6.82 H Glucose Level 191 164 Calcium Level 8.9 8.9 Magnesium Level 2.6 H Test 02/12/17 23:40 02/13/17 06:54 Blood Gas Specimen Source Blood arterial Arterial Blood Date Drawn 02/13/2017 12:02:07 AM Arterial Blood pH (Temp corrected) 7.404 Arterial Blood pCO2 (Temp correct) 31.9 L Arterial Blood pO2 (Temp corrected) 225.1 H Arterial Blood HCO3 19.5 L Arterial Blood Base Excess -4.3 L Arterial Blood Oxygen Saturation 98.9 Wilman Test ACCEPTAB Arterial Blood Gas Puncture Site Right Radial Arterial Blood Carboxyhemoglobin 0.4 Arterial Blood Methemoglobin 0.3 Oxyhemoglobin Percent 98.2 Total Hemoglobin 13.0 Blood Gas Temperature 37.0 Blood Gas Modality NASAL CANNULA FiO2 30.0 Blood Gas Critical Value Read Back Duy NICOLE Blood Gas Notified Whom MM Blood Gas Notified Time 02/13/2017 12:17:49 AM White Blood Count 19.3 H Red Blood Count 3.00 #L Hemoglobin 9.4 #L Hematocrit 31.6 #L Mean Corpuscular Volume 105.3 H Mean Corpuscular Hemoglobin 31.3 Mean Corpuscular Hemoglobin Concent 29.7 L Red Cell Distribution Width 14.7 H Platelet Count 90 #L Mean Platelet Volume 13.7 H Neutrophils % Segmented Neutrophils % (Manual) 57 Band Neutrophils % (Manual) 22 H Lymphocytes % Lymphocytes % (Manual) 8 L Monocytes % Monocytes % (Manual) 11 Eosinophils % Basophils % Basophils % (Manual) 1 Metamyelocytes % (manual) 1 H Nucleated Red Blood Cells % 1 H Neutrophils # Neutrophils # (Manual) 11.8 H Band Neutrophils # 4.2 H Absolute Lymphocytes (Manual) 1.5 Lymphocytes # Monocytes # Absolute Monocytes (Manual) 2.1 H Eosinophils # Basophils # Basophils # (Manual) 0.1 H Metamyelocytes # 0.1 H Nucleated Red Blood Cells # Platelet Estimate DECREASED Giant Platelets 1 H Poikilocytosis 1+ Anisocytosis 1+ Microcytosis 1+ Macrocytosis 1+ Ovalocytes 1+ Sodium Level 167 *H Potassium Level 4.9 Chloride Level 132 H Carbon Dioxide Level 20 L Anion Gap 20 H Blood Urea Nitrogen 155 H Creatinine 7.01 H Glucose Level 119 # Calcium Level 8.3 L Magnesium Level 2.5 Total Bilirubin 0.1 L Direct Bilirubin 0.00 Indirect Bilirubin 0.1 Aspartate Amino Transf (AST/SGOT) 41 Alanine Aminotransferase (ALT/SGPT) 58 Alkaline Phosphatase 112 Total Protein 5.2 #L Albumin 2.3 L Globulin 2.90 Albumin/Globulin Ratio 0.79 Medications Medications Current Medications Sodium Chloride (1/2 NS) 1,000 ml @ 125 mls/hr Q8H IV ; Start 02/12/17 at 15: 18 Ondansetron HCl (Zofran Inj) 4 mg Q6H PRN IV NAUSEA AND/OR VOMITING; Start at 15:30 Acetaminophen (Tylenol Supp) 650 mg Q6H PRN [place] PAIN LEVEL 1-3 OR FEVER; Start 02/12/17 at 15:30 Bisacodyl 10 mg 10 mg DAILY PRN [place] CONSTIPATION; Start 02/12/17 at 15:30 Ceftriaxone Sodium (Rocephin) 50 ml @ 100 mls/hr Q24H IVPB Last administered on 02/12/17t 17:02; Admin Dose 100 MLS/HR; Start 02/12/17 at 15:30 Citalopram Hydrobromide (Celexa) 40 mg QAM NGT ; Start 02/13/17 at 09:00 Oxybutynin Chloride (Ditropan) 5 mg BID NGT ; Start 02/12/17 at 21:00 Atorvastatin Calcium (Lipitor) 20 mg HS PO ; Start 02/12/17 at 21:00 Miscellaneous Information (*Rx Drug Level Order Reminder*) VANCO RANDOM W/ AM LABS... ONCE ONCE XX ; Start 02/14/17 at 05:00; Stop 02/14/17 at 05:01 ZURI PHIPPS MD Feb 13, 2017 14:36
[2017-02-13 14:53] LABS: CALCIUM 8.2 mg/dl (8.4-10.2); CREATININE 5.4 mg/dl (0.44-1.00); POTASSIUM 4.6 mmol/L (3.5-5.1)
[2017-02-13] MEDS: CEFTRIAXONE 1 GM/50 ML (PMX) 50 ML IVPB SCH (17:09)
[2017-02-13] MEDS: ATORVASTATIN 10 MG TAB PO SCH (20:06)
[2017-02-14] VITALS (17 sets, daily range): BP systolic 79–117; BP diastolic 50–82; PULSE 102–120; RESP 17–26
[2017-02-14] MEDS: SOD CHLORIDE 0.45% 1,000 ML IV SCH ×5 (02:17→23:08)
[2017-02-14 06:07] LABS: ABNORMAL IP MESSAGE 1; HEMATOCRIT 26.3 % (37.0-47.0); MEAN CORPUSCULAR HEMOGLOBIN 31.9 pg (29.0-33.0); MEAN CORPUSCULAR HGB CONC 30.4 g/dl (32.0-37.0); MEAN CORPUSCULAR VOLUME 104.8 fl (82.0-101.0); NUCLEATED RED BLOOD CELLS% 0.5 /100WBC (0.0-0.0); PLATELET COUNT 54 10^3/UL (140-415); RED BLOOD COUNT 2.51 10^6/ul (4.20-5.40); WHITE BLOOD COUNT 21.9 10^3/ul (4.8-10.8)
[2017-02-14 06:14] LABS: POSITIVE DIFF @See below
[2017-02-14 07:01] LABS: ALBUMIN 2.2 g/dl (3.3-4.9); ALBUMIN/GLOBULIN RATIO 0.88; BILIRUBIN,INDIRECT 0.1 mg/dl (0-1.1); BILIRUBIN,TOTAL 0.1 mg/dl (0.2-1.3); CALCIUM 7.9 mg/dl (8.4-10.2); MAGNESIUM 2.3 mg/dl (1.7-2.5); POTASSIUM 4.6 mmol/L (3.5-5.1); TOTAL PROTEIN 4.7 g/dl (6.1-8.1)
[2017-02-14 07:12] LABS: CREATININE 5.49 mg/dl (0.44-1.00)
[2017-02-14 07:58] LABS: ANISOCYTOSIS 1+ (0-0); ERYTHROBLAST% (NRBC) (M) 2 % (0-0); METAMYELOCYTES %M 1 % (0-0); MICROCYTOSIS 1+ (0-0); MONOCYTES % (M) 9 % (0-11); PLATELET ESTIMATE SIG DECREASED; POIKILOCYTOSIS 1+ (0-0); POLYCHROMASIA 2+ (0-0); REACTIVE LYMPHOCYTES% (M) 1 % (0-0)
[2017-02-14] MEDS: OXYBUTYNIN 5 MG TAB NGT SCH ×2 (09:00→21:00)
[2017-02-14] MEDS: CITALOPRAM 20 MG TAB NGT SCH (09:00)
[2017-02-14] MEDS ORDERED: VANCOMYCIN 1 GM (PMX) 250 ML IVPB ONE ×2 (10:00→13:00)
[2017-02-14] MEDS ORDERED: MANNITOL 25% 50 ML INJ IV* ONE (10:30)
--- NOTE | 2017-02-14 11:10 | PN ---
DATE: 02/14/2017 SUBJECTIVE: The patient remains critically ill. OBJECTIVE: VITAL SIGNS: Blood pressure is 199/62, respirations 22, pulse 106, temperature 98.6. HEENT: Head is normocephalic. NECK: Supple. HEART: Regular rate. LUNGS: Show diminished breath sounds at the base. ABDOMEN: Soft, nontender to palpation. No rebound or guarding. EXTREMITIES: Negative for clubbing, cyanosis. No edema. DERMATOLOGIC: No rashes. MUSCULOSKELETAL: No joint effusions. NEUROLOGIC: Patient remains obtunded. LABORATORY DATA: Shows sodium of 162, potassium 4.6, chloride 131, BUN 142, creatinine 5.49. White count 21.9, platelet count is 54. The patient's urine cultures were positive for E. coli. ASSESSMENT AND PLAN: 1. Oliguric acute kidney injury on top of chronic kidney disease stage IV with previous baseline cr eatinine of 2.12 mg/dL. Etiology of acute kidney injury is secondary to acute tubular necrosis. Th e patient is currently on hemodialysis. The patient received 2 sessions of dialysis for solute scott naveed. Anticipate dialysis again today. The patient is receiving dialysis with mannitol and using the F160 dialyzer to help her void, dialysis disequilibrium syndrome. Plan is to continue current t reatment plan. The patient's urinary output has been improving. Monitor for any signs of recovery. Monitor neurological status closely. 2. Hypernatremia. The patient has a free water deficit of over 6 liters. Continue hypertonic flui ds. The patient will be dialyzed on a 140 sodium bath. Monitor closely. 3. Hyponatremia, resolved. 4. Metabolic acidosis secondary to acute kidney injury, improving. 5. Uremia with underlying dementia. Continue hemodialysis and monitor. 6. Severe sepsis. Continue current antibiotic regimen. 7. Elevated troponin, possible [id number] myocardial infarction versus demand ischemia. We w ill continue to monitor. Follow up with cardiology. Dictated By: CASA CROSS/FANNY Conf#: [id number] DID#: [id number]
[2017-02-14] MEDS: CEFTRIAXONE 1 GM/50 ML (PMX) 50 ML IVPB SCH (15:20)
--- NOTE | 2017-02-14 16:07 | PN ---
Date/Time of Note Date/Time of Note DATE: 02/14/17 TIME: 16:06 Assessment/Plan VTE Prophylaxis VTE Prophylaxis Intervention: SCD's Lines/Catheters IV Catheter Type (from Nrsg): Peripheral IV Urinary Cath still in place: Yes Reason Cath still needed: terminal illness/intractable pain Assessment/Plan Chief Complaint/Hosp Course Subjective Patient receiving dialysis, patient very difficult to arouse Objective Physical exam General: Patient is laying in bed, curled, difficult to arouse Mentation: Patient is not alert and oriented 4, Head: Normocephalic atraumatic Eyes: EOMI, pupils reactive to light Neck: Supple, nontender, midline Respiratory: coarse to auscultation bilaterally Cardiovascular: tachycardic, no obvious murmurs Gastrointestinal: non-tender to palpation, bowel sounds heard. Neurological: Moves all extremities spontaneously Skin: No new skin lesions Assessment/Plan Severe sepsis secondary to dehydration and UTI - Patient urine culture growing gram negative rods. Currently on Ceftriaxone day 2 - Patient has been on comfort care/ hospice for the past 2 weeks per son. Has not had PO intake in the past 3 days which is consistent with Hospice. When explained to son, he states he was not well informed about what hospice entailed and would still like to pursue care for his mother as she was eating and talking 2 weeks ago - LA stable UTI - UA+ for infection and awaiting final culture results - Most likely secondary to dehydration - Ceftriaxone PANCHO on CKD - Patient baseline Cr 2.2 and renal failure is secondary to dehydration and natural progression of dying - Dr. Reed on board and appreciated consultation. Continue with HD as tolerated and monitoring electrolytes closely. Watch sodium - Discussed with son and patient on tolerating well but would still like to continue with HD as patient can tolerate. Anemia -likely chronic, but abrupt drops likely 2/2 volume repletion -no signs of bleed -will transfuse if hgb <7.0 -pending iron studies Dehydration - 1/2 NS -HD tachycardia -cardiology consult pending Severe hypernatremia- - 1/2 NS and will monitor - decreasing appropriately Hyperkalemia- -monitor Transaminitis- resolved - secondary to dehydration Leukocytosis- trending down - on IV antibiotics. continue monitoring Elevated troponin - most likely secondary to elevated Cr - EKG shows sinus tachycardia -cardiology consulted Dementia - continue medications -severe L cephalic vein thrombosis - keep limb elevated with warm compress - no anticoagulation at this time per family Disposition - Continue monitoring on telemetry - Family would like some time to see if recovery of kidney function is normal. if no improvement after a few days, would recommend palliative consult to assess goals of care with family -cardiology consult pending Problems: Exam/Review of Systems Vital Signs Vitals Vital Signs Date Time Temp Pulse Resp B/P Pulse Ox O2 Delivery O2 Flow Rate FiO2 02/14/17 15:46 98.8 118 26 95/52 92 02/14/17 08:00 Nasal Cannula 02/12/17 18:00 3.0 Intake and Output 02/13/17 02/13/17 02/14/17 15:00 23:00 07:00 Intake Total 100 ml Output Total 600 ml 350 ml Balance -500 ml -350 ml Results Result Diagram: 02/14/1751102/14/17 0512 Results 24 hrs Laboratory Tests Test 02/14/17 05:12 White Blood Count 21.9 H Red Blood Count 2.51 L Hemoglobin 8.0 L Hematocrit 26.3 L Mean Corpuscular Volume 104.8 H Mean Corpuscular Hemoglobin 31.9 Mean Corpuscular Hemoglobin Concent 30.4 L Red Cell Distribution Width 15.0 H Platelet Count 54 #L Mean Platelet Volume 14.0 H Neutrophils % Segmented Neutrophils % (Manual) 39 Band Neutrophils % (Manual) 39 H Lymphocytes % Lymphocytes % (Manual) 11 L Reactive Lymphocytes % (Manual) 1 H Monocytes % Monocytes % (Manual) 9 Eosinophils % Basophils % Metamyelocytes % (manual) 1 H Nucleated Red Blood Cells % 2 H Neutrophils # Neutrophils # (Manual) 10.4 H Band Neutrophils # 8.5 H Absolute Lymphocytes (Manual) 2.4 Lymphocytes # Reactive Lymphocytes # 0.2 H Monocytes # Absolute Monocytes (Manual) 1.9 H Eosinophils # Basophils # Metamyelocytes # 0.2 H Nucleated Red Blood Cells # Platelet Estimate SIG DECREASED Polychromasia 2+ Poikilocytosis 1+ Anisocytosis 1+ Microcytosis 1+ Sodium Level 162 *H Potassium Level 4.6 Chloride Level 131 H Carbon Dioxide Level 18 L Anion Gap 18 H Blood Urea Nitrogen 142 H Creatinine 5.49 H Glucose Level 103 Calcium Level 7.9 L Magnesium Level 2.3 Total Bilirubin 0.1 L Direct Bilirubin 0.00 Indirect Bilirubin 0.1 Aspartate Amino Transf (AST/SGOT) 43 Alanine Aminotransferase (ALT/SGPT) 51 Alkaline Phosphatase 99 Total Protein 4.7 L Albumin 2.2 L Globulin 2.50 Albumin/Globulin Ratio 0.88 Random Vancomycin Level 10.0 Medications Medications Current Medications Sodium Chloride (1/2 NS) 1,000 ml @ 125 mls/hr Q8H IV Last administered on 12:48; Admin Dose 125 MLS/HR; Start 02/12/17 at 15:18 Ondansetron HCl (Zofran Inj) 4 mg Q6H PRN IV NAUSEA AND/OR VOMITING; Start at 15:30 Acetaminophen (Tylenol Supp) 650 mg Q6H PRN [place] PAIN LEVEL 1-3 OR FEVER; Start 02/12/17 at 15:30 Bisacodyl 10 mg 10 mg DAILY PRN [place] CONSTIPATION; Start 02/12/17 at 15:30 Ceftriaxone Sodium (Rocephin) 50 ml @ 100 mls/hr Q24H IVPB Last administered on 02/14/17 15:20; Admin Dose 100 MLS/HR; Start 02/12/17 at 15:30 Citalopram Hydrobromide (Celexa) 40 mg QAM NGT ; Start 02/13/17 at 09:00 Oxybutynin Chloride (Ditropan) 5 mg BID NGT ; Start 02/12/17 at 21:00 Atorvastatin Calcium (Lipitor) 20 mg HS PO ; Start 02/12/17 at 21:00 YOKASTA TONG Feb 14, 2017 16:07
[2017-02-14] MEDS: ATORVASTATIN 10 MG TAB PO SCH (21:00)
--- NOTE | 2017-02-14 21:58 | CONS ---
DATE OF ADMISSION: 02/12/2017 DATE OF CONSULTATION: 02/14/2017 CARDIOLOGY CONSULTATION REFERRING PHYSICIAN: Dr. Ortiz REASON FOR CONSULTATION: Tachycardia, abnormal troponin. CHIEF COMPLAINT: Altered level of consciousness. HISTORY OF PRESENT ILLNESS: Thank you for this referral. History was obtained from the patient, re view of the chart, discussion with physician and staff. The patient herself is not ____ history to me. This is an unfortunate 81-year-old female who was admitted a few days ago with altered level of consciousness, being unresponsive. The patient was noted to be severely dehydrated, hypernatremic and hypotensive. She is also noted to be in acute renal failure with BUN of 215 and creatinine 8.6. Her sodium initially has been 178, which has been slowly improving. She has been tachycardic, for which I was kindly asked to evaluate and treat. She also has been initially having slight elevatio n of troponin. Previously, the patient apparently was supposed to be on hospice, but currently is o ut of hospice, but is still DNR/DNI. The patient is nonverbal, not able to provide any history to kristal roberts. PAST MEDICAL HISTORY: As above mentioned, the best I could obtain. PAST SURGICAL HISTORY: None as well as we can ____. SOCIAL HISTORY: The patient does not smoke or drink, the best we could obtain. ALLERGIES: NO REPORTED DRUG ALLERGIES. MEDICATIONS: Reviewed as per medication reconciliation, personally reviewed. PHYSICAL EXAMINATION: VITAL SIGNS: Temperature 98.8, heart rate of 115, blood pressure 95/52, respiration rate of 26, sat urating 92%. HEENT: Normocephalic, atraumatic. Thin, cachectic looking female. Eyes are closed. Mouth breathi ng. CARDIOVASCULAR: Tachycardic, systolic murmur. PULMONARY: Anteriorly with mild rhonchi, diffuse. GASTROINTESTINAL: Soft. No rebound or guarding. EXTREMITIES: Diffuse upper and lower extremity edema. NEUROLOGIC: Noted to be lethargic and nonverbal. PSYCHIATRIC: Appears to be calm at the moment. LABORATORY DATA: Sodium is 162, potassium 4.6, BUN of 142, creatinine of 5.49, glucose 103. Albumi n is 2.2. WBC of 21.9, hemoglobin of 8, platelets of 54. There are 39% bands noted as well. IMAGING: EKG was personally reviewed, showed normal sinus rhythm, frequent PACs. Cannot rule out i nferior infarct, age undetermined. Chest x-ray shows no evidence of acute cardiopulmonary disease. Carotid ultrasound showed thrombus in the left cephalic vein of the left forearm. Urine culture sh ows E. coli. Blood cultures are so far negative. Troponin initially on admission was 0.134. ASSESSMENT AND PLAN: 1. Sinus tachycardia, appeared to be multifactorial secondary to severe worsening anemia, respirato ry failure, sepsis, etc. 2. Severe sepsis and dehydration, urinary tract infection with gram negative rods. 3. Severe hypernatremia. 4. Acute renal failure. 5. Severe encephalopathy secondary to above. 6. Worsening anemia. 7. Dehydration. 8. ____ troponin secondary to above. 9. Transaminitis. 10. History of dementia. 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 12. Malnutrition and low albumin level. 13. Dysphagia. RECOMMENDATIONS: Continue with the supportive care. Code status is DNR. IV fluid is being managed as per renal team. Follow up renal function. Nutritional support as tolerated. Prognosis is very poor. Thank you for this referral. We will continue to follow along with you. Dictated By: CHU CORDOVA/NTS Conf#: [id number] DID#: [id number] CC: Angel; Giulia Hope;*End*
[2017-02-15] VITALS (19 sets, daily range): BP systolic 69–104; BP diastolic 33–62; PULSE 85–130; RESP 16–46
[2017-02-15] MEDS: OXYBUTYNIN 5 MG TAB NGT SCH ×2 (09:00→21:00)
[2017-02-15] MEDS: CITALOPRAM 20 MG TAB NGT SCH (09:00)
[2017-02-15 09:12] LABS: ABNORMAL IP MESSAGE 1; BASOPHILS % 0.2 % (0.0-2.0); HEMATOCRIT 22.4 % (37.0-47.0); HEMOGLOBIN 7.1 g/dl (12.0-16.0); LYMPHOCYTES # 2.6 10^3/ul (0.8-2.9); LYMPHOCYTES % 11.3 % (15.0-51.0); MEAN CORPUSCULAR HEMOGLOBIN 32.4 pg (29.0-33.0); MEAN CORPUSCULAR HGB CONC 31.7 g/dl (32.0-37.0); MEAN CORPUSCULAR VOLUME 102.3 fl (82.0-101.0); MEAN PLATELET VOLUME 14.3 fl (7.4-10.4); MONOCYTE # 0.9 10^3/ul (0.3-0.9); NEUTROPHIL # 18.5 10^3/ul (1.6-7.5); NUCLEATED RED BLOOD CELLS # 0.3 10^3/ul (0.0-0.0); NUCLEATED RED BLOOD CELLS% 1.3 /100WBC (0.0-0.0); RED BLOOD COUNT 2.19 10^6/ul (4.20-5.40); WHITE BLOOD COUNT 22.6 10^3/ul (4.8-10.8)
[2017-02-15 09:14] LABS: PLATELET COUNT 54 10^3/UL (140-415); POSITIVE DIFF @See below
[2017-02-15] MEDS: DEXTROSE 5% 1,000 ML IV SCH ×2 (09:30→20:49)
--- NOTE | 2017-02-15 09:31 | CONS ---
Date/Time of Note Date/Time of Note DATE: 02/15/17 TIME: 09:28 Consult Date/Type/Reason Admit Date/Time Feb 12, 2017 at 13:47 Initial Consult Date Type of Consultation: CArdiology Subjective Cardiology follow-up progress note: Subjective: Case discussed with staff and rhythm strip was reviewed. Patient remained in sinus rhythm sinus tachycardia. No episode of atrial fibrillation. Patient remained nonverbal and is not able to provide history to me. Objective: General: elderly female in respiratory distress. Appeared to be thin and cachectic looking. HEENT: NC/AT. pupils are equal. round. NECK: NO JVD. no stridor. CV: Tachycardic. Systolic murmur; no gallop or rubs. PULM: Diffuse rhonchi. GI: SOFT, NT, ND, no rebound or guarding Extremity: Positive left upper extremity edema. neuro: Lethargic Psych: calm rectal: deferred : Deferred Objective Vital Signs Date Time Temp Pulse Resp B/P Pulse Ox O2 Delivery O2 Flow Rate FiO2 02/15/17 08:00 117 02/15/17 04:00 98.0 18 99/62 95 02/15/17 02:37 4.0 02/15/17 01:46 Nasal Cannula Intake and Output 02/14/17 02/14/17 02/15/17 15:00 23:00 07:00 Intake Total 500 ml 1550 ml 0 ml Output Total 1000 ml 800 ml 850 ml Balance -500 ml 750 ml -850 ml Results/Medications Result Diagram: 02/15/17 0840 02/14/17 0512 Results 24 hrs Laboratory Tests Test 02/15/17 08:40 White Blood Count 22.6 H Red Blood Count 2.19 L Hemoglobin 7.1 L Hematocrit 22.4 L Mean Corpuscular Volume 102.3 H Mean Corpuscular Hemoglobin 32.4 Mean Corpuscular Hemoglobin Concent 31.7 L Red Cell Distribution Width 15.0 H Platelet Count 54 L Mean Platelet Volume 14.3 H Neutrophils % 82.0 H Lymphocytes % 11.3 L Monocytes % 4.0 Eosinophils % 0.0 Basophils % 0.2 Nucleated Red Blood Cells % 1.3 H Neutrophils # 18.5 H Lymphocytes # 2.6 Monocytes # 0.9 Eosinophils # 0.0 Basophils # 0.0 Nucleated Red Blood Cells # 0.3 H Medications Current Medications Ondansetron HCl (Zofran Inj) 4 mg Q6H PRN IV NAUSEA AND/OR VOMITING; Start at 15:30 Acetaminophen (Tylenol Supp) 650 mg Q6H PRN [place] PAIN LEVEL 1-3 OR FEVER; Start 02/12/17 at 15:30 Bisacodyl 10 mg 10 mg DAILY PRN [place] CONSTIPATION; Start 02/12/17 at 15:30 Ceftriaxone Sodium (Rocephin) 50 ml @ 100 mls/hr Q24H IVPB Last administered on 02/14/17t 15:20; Admin Dose 100 MLS/HR; Start 02/12/17 at 15:30 Citalopram Hydrobromide (Celexa) 40 mg QAM NGT ; Start 02/13/17 at 09:00 Oxybutynin Chloride (Ditropan) 5 mg BID NGT ; Start 02/12/17 at 21:00 Atorvastatin Calcium (Lipitor) 20 mg HS PO ; Start 02/12/17 at 21:00 Epoetin Weston 6000 units 6,000 units TuThSa@17 SC ; Start 02/15/17 at 17:00 Dextrose (D5W) 1,000 ml @ 50 mls/hr Q20H IV ; Start 02/15/17 at 09:30 Assessment/Plan Chief Complaint/Hosp Course ASSESSMENT AND PLAN: 1. Sinus tachycardia, appeared to be multifactorial secondary to severe worsening anemia, respiratory failure, sepsis, etc. 2. Severe sepsis and dehydration, urinary tract infection with gram negative rods. 3. Severe hypernatremia. 4. Acute renal failure. 5. Severe encephalopathy secondary to above. 6. Worsening anemia. 7. Dehydration. 8. Mildly elevated troponin secondary to above. 9. Transaminitis. 10. History of dementia. 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 12. Malnutrition and low albumin level. 13. Dysphagia. RECOMMENDATIONS: Continue with the supportive care. Code status is DNR and prognosis is very poor. Unable to tolerate any beta-hilton due to her hypotension IV fluid is being managed as per renal team. Follow up renal function and recommendation. . Nutritional support as tolerated. Prognosis is very poor. Thank you for this referral. We will continue to follow along with you. Problems: CHU SMART MD Feb 15, 2017 09:31
[2017-02-15 09:43] LABS: ALBUMIN 1.9 g/dl (3.3-4.9); ALBUMIN/GLOBULIN RATIO 0.79; BILIRUBIN,INDIRECT 0.1 mg/dl (0-1.1); BILIRUBIN,TOTAL 0.1 mg/dl (0.2-1.3); CALCIUM 7.6 mg/dl (8.4-10.2); POTASSIUM 4.3 mmol/L (3.5-5.1); TOTAL PROTEIN 4.3 g/dl (6.1-8.1)
[2017-02-15 09:52] LABS: CREATININE 4.14 mg/dl (0.44-1.00)
[2017-02-15 09:53] LABS: IRON < 10 ug/dl (35-150)
[2017-02-15 09:59] LABS: TOTAL IRON BINDING CAPACITY 148 ug/dl (241-421)
--- NOTE | 2017-02-15 10:02 | PN ---
DATE: 02/15/2017 SUBJECTIVE: The patient remains critically ill. No events noted. OBJECTIVE: VITAL SIGNS: Blood pressure is 99/62, pulse 77, temperature 97.4. HEENT: Head is normocephalic. NECK: Supple. HEART: Tachycardic. LUNGS: Show diminished breath sounds at the base. ABDOMEN: Soft, nontender to palpation. No rebound or guarding. EXTREMITIES: Negative for clubbing, cyanosis. Positive edema. DERMATOLOGIC: No rashes. MUSCULOSKELETAL: No joint effusion. NEUROLOGIC: No change in exam. MEDICATIONS: The patient's medications have been reviewed. LABORATORY DATA: From 02/15/2017 is pending. ASSESSMENT AND PLAN: 1. Nonoliguric acute kidney injury on top of chronic kidney disease stage IV with previous baseline creatinine of 2.2 mg/dL. Etiology of acute kidney injury is secondary to acute tubular necrosis. The patient was initiated on hemodialysis and has received 3 sessions. Continue daily dialysis for solute clearance. Will plan for dialysis again today for 3 hours on 3 K bath, calcium 2.5. Monito r closely. 2. Hypernatremia. The patient has free water deficit of approximately 6 liters. Continue hyperton ic fluids. Continue dialysis on a 140 sodium bath. 3. Metabolic acidosis secondary to acute kidney injury, improving. 4. Uremia with underlying dementia. Continue hemodialysis. Continue to monitor mental status. 5. Severe sepsis secondary to urinary tract infection. Continue current antibiotic regimen. 6. Anemia. Monitor hemoglobin and hematocrit levels. The patient will be placed on Epogen. 7. Mineral bone disorder. Will monitor calcium and phosphorus levels. 8. Elevated troponin, possible [id number] myocardial infarction. Continue medical management . Follow up with cardiology. Dictated By: CASA CROSS/FANNY Conf#: [id number] DID#: [id number]
[2017-02-15 12:16] LABS: HEMATOCRIT 21.6 % (37.0-47.0)
[2017-02-15 12:32] LABS: HEMOGLOBIN 6.9 g/dl (12.0-16.0)
[2017-02-15] MEDS: CEFTRIAXONE 1 GM/50 ML (PMX) 50 ML IVPB SCH (15:30)
--- NOTE | 2017-02-15 15:34 | PN ---
Date/Time of Note Date/Time of Note DATE: 02/15/17 TIME: 15:29 Assessment/Plan VTE Prophylaxis VTE Prophylaxis Intervention: SCD's Lines/Catheters IV Catheter Type (from Nrsg): Peripheral IV Urinary Cath still in place: Yes Reason Cath still needed: terminal illness/intractable pain Assessment/Plan Chief Complaint/Hosp Course Subjective 12.19 spoke with at length with and fuel yard operator at bedside Objective Physical exam General: Patient is laying in bed, curled, difficult to arouse Mentation: Patient is not alert and oriented 4, Head: Normocephalic atraumatic Eyes: EOMI, pupils reactive to light Neck: Supple, nontender, midline Respiratory: coarse to auscultation bilaterally Cardiovascular: tachycardic, no obvious murmurs Gastrointestinal: non-tender to palpation, bowel sounds heard. Neurological: Moves all extremities spontaneously Skin: No new skin lesions Assessment/Plan Severe sepsis secondary to dehydration and UTI - Patient urine culture growing gram negative rods. Currently on Ceftriaxone - Patient has been on comfort care/ hospice for the past 2 weeks per son. Has not had PO intake in the past 3 days which is consistent with Hospice. When explained to son, he states he was not well informed about what hospice entailed and would still like to pursue care for his mother as she was eating and talking 2 weeks ago - LA stable -resolving UTI - UA+ for infection - Most likely secondary to dehydration - Ceftriaxone hypernatremia -on D5w -nephro recs appreciated PANCHO on CKD - Patient baseline Cr 2.2 and renal failure is secondary to dehydration and natural progression of comorbid conditions - Dr. Reed on board and appreciated consultation. Continue with HD as tolerated and monitoring electrolytes closely. Watch sodium - Discussed with son and patient on tolerating well but would still like to continue with HD as patient can tolerate. Anemia -likely chronic, but abrupt drops likely 2/2 volume repletion -no signs of bleed -will transfuse if hgb <7.0 -iron deficient Dehydration - D5w and dialysis tachycardia -cardiology recs appreciated, no BB can be given 2/2 BP Severe hypernatremia- - 1/2 NS and will monitor - decreasing appropriately Hyperkalemia- -monitor Transaminitis- resolved - secondary to dehydration Leukocytosis- trending down - on IV antibiotics. continue monitoring Elevated troponin - most likely secondary to elevated Cr - EKG shows sinus tachycardia -cardiology consulted Dementia - continue medications -severe L cephalic vein thrombosis - keep limb elevated with warm compress - no anticoagulation at this time per family Disposition - spoke at length with and fuel yard operator, will also get palliative care on board - discussed need of PEG/HD to SNF vs true hospice, patient to speak to son - NG tube for tube feeds if patient conscious enough to swallow - patient is definitely hospice appropriate given imminent timing for intubation given inability to protect airway and severe chronic dementia Problems: Exam/Review of Systems Vital Signs Vitals Vital Signs Date Time Temp Pulse Resp B/P Pulse Ox O2 Delivery O2 Flow Rate FiO2 02/15/17 12:46 96.6 117 42 91/50 93 02/15/17 09:19 Nasal Cannula 4.0 Intake and Output 02/14/17 02/14/17 02/15/17 15:00 23:00 07:00 Intake Total 500 ml 1550 ml 0 ml Output Total 1000 ml 800 ml 850 ml Balance -500 ml 750 ml -850 ml Results Result Diagram: 02/15/17 1151 02/15/17 0840 Results 24 hrs Laboratory Tests Test 02/15/17 08:40 02/15/17 11:51 White Blood Count 22.6 H Red Blood Count 2.19 L Hemoglobin 7.1 L 6.9 *L Hematocrit 22.4 L 21.6 L Mean Corpuscular Volume 102.3 H Mean Corpuscular Hemoglobin 32.4 Mean Corpuscular Hemoglobin Concent 31.7 L Red Cell Distribution Width 15.0 H Platelet Count 54 L Mean Platelet Volume 14.3 H Neutrophils % 82.0 H Lymphocytes % 11.3 L Monocytes % 4.0 Eosinophils % 0.0 Basophils % 0.2 Nucleated Red Blood Cells % 1.3 H Neutrophils # 18.5 H Lymphocytes # 2.6 Monocytes # 0.9 Eosinophils # 0.0 Basophils # 0.0 Nucleated Red Blood Cells # 0.3 H Sodium Level 154 H Potassium Level 4.3 Chloride Level 122 H Carbon Dioxide Level 18 L Anion Gap 18 H Blood Urea Nitrogen 113 H Creatinine 4.14 #H Glucose Level 106 Lactic Acid Level 1.1 Calcium Level 7.6 L Phosphorus Level 4.2 Magnesium Level 2.0 Iron Level < 10 L Total Iron Binding Capacity 148 L Percent Iron Saturation Ferritin 268.0 H Total Bilirubin 0.1 L Direct Bilirubin 0.00 Indirect Bilirubin 0.1 Aspartate Amino Transf (AST/SGOT) 62 H Alanine Aminotransferase (ALT/SGPT) 49 Alkaline Phosphatase 80 Total Protein 4.3 L Albumin 1.9 L Globulin 2.40 Albumin/Globulin Ratio 0.79 Medications Medications Current Medications Ondansetron HCl (Zofran Inj) 4 mg Q6H PRN IV NAUSEA AND/OR VOMITING; Start at 15:30 Acetaminophen (Tylenol Supp) 650 mg Q6H PRN [place] PAIN LEVEL 1-3 OR FEVER; Start 02/12/17 at 15:30 Bisacodyl 10 mg 10 mg DAILY PRN [place] CONSTIPATION; Start 02/12/17 at 15:30 Ceftriaxone Sodium (Rocephin) 50 ml @ 100 mls/hr Q24H IVPB Last administered on 02/14/17 15:20; Admin Dose 100 MLS/HR; Start 02/12/17 at 15:30 Citalopram Hydrobromide (Celexa) 40 mg QAM NGT ; Start 02/13/17 at 09:00 Oxybutynin Chloride (Ditropan) 5 mg BID NGT ; Start 02/12/17 at 21:00 Atorvastatin Calcium (Lipitor) 20 mg HS PO ; Start 02/12/17 at 21:00 Epoetin Weston 6000 units 6,000 units TuThSa@17 SC ; Start 02/15/17 at 17:00 Dextrose (D5W) 1,000 ml @ 50 mls/hr Q20H IV Last administered on 02/15/17 09 :30; Admin Dose 50 MLS/HR; Start 02/15/17 at 09:30 YOKASTA TONG Feb 15, 2017 15:34
[2017-02-15] MEDS: SOD FERRIC GLUC COMPLX 125 MG in SOD CHLORIDE 0.9% 100 ML IVPB SCH (16:00)
[2017-02-15] MEDS: EPOETIN 3000 UNITS/1 ML INJ (ESRD) SC SCH (20:40)
[2017-02-15] MEDS: ATORVASTATIN 10 MG TAB PO SCH (21:00)
[2017-02-16] VITALS (20 sets, daily range): BP systolic 86–127; BP diastolic 50–62; PULSE 80–105; RESP 16–33
--- NOTE | 2017-02-16 02:25 | RADRPT ---
PROCEDURE: XR Chest. CLINICAL INDICATION: Nasogastric tube placement. TECHNIQUE: Single frontal view of the chest. COMPARISON: Plain film chest dated 02/12/2017. FINDINGS: Nasogastric tube in place with tip and side port at the proximal stomach. The cardiomediastinal silhouette is within normal limits. New mild atelectasis versus airspace disea se at the left lung base since plain film examination dated 02/12/2017. The lungs are otherwise scott r. No signs of pleural fluid or pneumothorax are seen. Dextroscoliosis in the mid thoracic spine. os seous structures and soft tissues are unremarkable. IMPRESSION: 1. Nasogastric tube in place with tip and side port at the proximal stomach. 2. New mild atelectasis versus airspace disease at the left lung base. RPTAT: [facility] Physician Chance Date Time Electronically viewed and signed by Physician Chance on 02/16/2017 02:25 RS/
--- NOTE | 2017-02-16 08:42 | RADRPT ---
Echocardiogram Report Patient Name: MAXWELL STEVENSON Gender: Female Date: 1935 Study Date: 15-Feb-2017 Painter Apprentice: Marco [facility] Location: 55[address] Ref. Physician: CHU GIRON Quality: Technically Difficult Study Procedures: Transthoracic echocardiogram with complete 2D, M-Mode, and doppler examination. Indications: Tachy, trop. 2D/M Mode Doppler Measurement Value Normal Ranges Measurement Value Normal Ranges LVIDd 2D 3.2 3.5 - 5.6 cm AV Mean Hank 2.7 m/sec LVIDs 2D 2.0 2.1 - 4.1 cm AV Mean PG 49.0 mmHg FS 2D 35.4 % AV Peak Hank 5.4 m/sec LVPWd 2D 1.3 0.6 - 1.1 cm AV Peak PG 117.0 mmHg IVSd 2D 1.3 0.6 - 1.1 cm AV VTI 79.9 cm IVS/LVPW 2D 1.0 LVOT Mean Hank 1.1 m/sec AoR Diam 2D 1.9 2.0 - 3.7 cm LVOT Mean PG 5.0 mmHg LA/Ao 2D 2 0 - 1 LVOT Peak Hank 1.7 m/sec EDV 2D 31.6 cm3 LVOT Peak PG 12.0 mmHg ESV 2D 8.5 cm3 LVOT VTI 27.9 cm LA Dimen 2D 3.5 2.3 - 4.0 cm MV E Peak Hank 0.8 m/sec MV A Peak Hank 1.2 m/sec MV E/A 0.7 MV Decel Time 155 msec MV E/A 0.7 Findings Left Ventricle: Normal left ventricular systolic function. Normal left ventricular cavity size. Moderate concentric left ventricular hypertrophy. Ejection fraction is visually estimated at 60 %. Abnormal Diastolic Function. Right Ventricle: Normal right ventricular size. Normal right ventricular systolic function. Left Atrium: The left atrium is normal in size. Right Atrium: The right atrium is normal in size. Mitral Valve: Mitral valve is not well visualized. Mild mitral leaflet calcification. Mild mitral annular calcification. Trace mitral regurgitation. Aortic Valve: Aortic valve not well visualized. Moderate to severe aortic stenosis. Aortic valve Max velocity 5.41 m/sec. Max PG 117.00 mmHg. Mean PG 49.00 mmHg. Aortic cusps appear moderately calcified. Tricuspid Valve: Normal appearance of the tricuspid valve. Tricuspid valve not well visualized. Unable to obtain RVSP due to minimal presence of tricuspid regurgitation. There is trace tricuspid regurgitation. Pericardium: Normal pericardium with no significant pericardial effusion. Aorta: Normal aortic root. IVC: Normal size and normal respiratory collapse consistent with normal right atrial pressure. Conclusions 1.Normal left ventricular systolic function. Normal left ventricular cavity size. Moderate concentric left ventricular hypertrophy. Ejection fraction is visually estimated at 60 %. Abnormal Diastolic Function. 2.Aortic valve not well visualized. Moderate to severe aortic stenosis. Aortic valve Max velocity 5.41 m/sec. Max PG 117.00 mmHg. Mean PG 49.00 mmHg. Aortic cusps appear moderately calcified. 3.Mitral valve is not well visualized. Mild mitral leaflet calcification. Mild mitral annular calcification. Trace mitral regurgitation. 4.Normal appearance of the tricuspid valve. Tricuspid valve not well visualized. Unable to obtain RVSP due to minimal presence of tricuspid regurgitation. There is trace tricuspid regurgitation. Electronically Signed By: Chu Giron 16-Feb-2017 08:41:05 -0800 Patient Name: MAXWELL STEVENSON Study Date: 15-Feb-[id number]
[2017-02-16] MEDS: OXYBUTYNIN 5 MG TAB NGT SCH ×2 (09:22→22:10)
[2017-02-16] MEDS: CITALOPRAM 20 MG TAB NGT SCH (09:22)
--- NOTE | 2017-02-16 09:53 | CONS ---
Date/Time of Note Date/Time of Note DATE: 02/16/17 TIME: 09:52 Consult Date/Type/Reason Admit Date/Time Feb 12, 2017 at 13:47 Type of Consultation: CArdiology Subjective Cardiology follow-up progress note: Subjective: Case discussed with staff and rhythm strip was reviewed. Patient remained in sinus rhythm sinus tachycardia. No episode of atrial fibrillation. Patient remained nonverbal and is not able to provide history to me. on O2 Objective: General: elderly female in respiratory distress. Appeared to be thin and cachectic looking. HEENT: NC/AT. pupils are equal. round. NECK: NO JVD. no stridor. CV: Tachycardic. Systolic murmur; no gallop or rubs. PULM: Diffuse rhonchi. GI: SOFT, NT, ND, no rebound or guarding Extremity: + lower and upper extremity edema. neuro: Lethargic Psych: calm rectal: deferred : Deferred Objective Vital Signs Date Time Temp Pulse Resp B/P Pulse Ox O2 Delivery O2 Flow Rate FiO2 02/16/17 08:16 99 02/16/17 08:10 99.4 16 107/61 94 02/16/17 01:47 4.0 02/15/17 20:00 Simple Mask Intake and Output 02/15/17 02/15/17 02/16/17 14:59 22:59 06:59 Intake Total 1000 ml 970 ml Output Total 1500 ml 900 ml Balance -500 ml 70 ml Results/Medications Result Diagram: 02/15/17 1151 02/15/17 0840 Results 24 hrs Laboratory Tests Test 02/15/17 11:51 02/16/17 07:08 Hemoglobin 6.9 *L Hematocrit 21.6 L Lab Scanned Report BLOOD TRANSFUSION Medications Current Medications Ondansetron HCl (Zofran Inj) 4 mg Q6H PRN IV NAUSEA AND/OR VOMITING; Start at 15:30 Acetaminophen (Tylenol Supp) 650 mg Q6H PRN [place] PAIN LEVEL 1-3 OR FEVER; Start 02/12/17 at 15:30 Bisacodyl 10 mg 10 mg DAILY PRN [place] CONSTIPATION; Start 02/12/17 at 15:30 Ceftriaxone Sodium (Rocephin) 50 ml @ 100 mls/hr Q24H IVPB Last administered on 02/15/17t 15:30; Admin Dose 100 MLS/HR; Start 02/12/17 at 15:30 Citalopram Hydrobromide (Celexa) 40 mg QAM NGT Last administered on 02/16/17 09:22; Admin Dose 40 MG; Start 02/13/17 at 09:00 Oxybutynin Chloride (Ditropan) 5 mg BID NGT Last administered on 02/16/17 09: 22; Admin Dose 5 MG; Start 02/12/17 at 21:00 Atorvastatin Calcium (Lipitor) 20 mg HS PO ; Start 02/12/17 at 21:00 Epoetin Weston 6000 units 6,000 units TuThSa@17 SC Last administered on 20:40; Admin Dose 6,000 UNITS; Start 02/15/17 at 17:00 Ferric Sodium Gluconate Complex/ Sodium Chloride (Ferrlecit/NS) 110 ml @ 110 mls/hr Q24H IVPB Last administered on 02/15/17 16:00; Admin Dose 110 MLS/HR; Start 02/15/17 at 16:00; Stop 02/22/17 at 16:59 Assessment/Plan Chief Complaint/Hosp Course ASSESSMENT AND PLAN: 1. Sinus tachycardia, appeared to be multifactorial secondary to severe worsening anemia, respiratory failure, sepsis, etc. 2. Severe sepsis and dehydration, urinary tract infection with gram negative rods. 3. Severe hypernatremia. 4. Acute renal failure. 5. Severe encephalopathy secondary to above. 6. Worsening anemia. 7. Dehydration. 8. Mildly elevated troponin secondary to above. 9. Transaminitis. 10. History of dementia. 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 12. Malnutrition and low albumin level. 13. Dysphagia. RECOMMENDATIONS: Continue with the supportive care. Code status is DNR and prognosis is very poor. Unable to tolerate any beta-hilton due to her hypotension IV fluid is being managed as per renal team. Follow up renal function and recommendation. . Nutritional support as tolerated. Prognosis is very poor. consider palliative care. Thank you for this referral. We will continue to follow along with you. Problems: CHU SMART MD Feb 16, 2017 09:53
--- NOTE | 2017-02-16 10:08 | PN ---
DATE: 02/16/2017 SUBJECTIVE: The patient remains critically ill, currently on a nonrebreather. No other events note d. OBJECTIVE: VITAL SIGNS: Blood pressure is 107/61, respirations 16, pulse 99, temperature is 99.4. HEENT: Head is normocephalic. NECK: Supple. HEART: Regular rate. LUNGS: Show diminished breath sounds at base. ABDOMEN: Soft, nontender to palpation. No rebound or guarding. EXTREMITIES: Negative for clubbing, cyanosis. Positive edema. DERMATOLOGIC: No rashes. MUSCULOSKELETAL: No joint effusions. NEUROLOGIC: No change in exam. MEDICATIONS: The patient's medications have been reviewed. LABORATORY DATA: For 02/15/2017 was reviewed, 02/16/2017 is pending. ASSESSMENT AND PLAN: 1. Oliguric acute kidney injury on top of chronic kidney disease stage IV with previous baseline cr eatinine 2.2 mg/dL. Etiology of acute kidney injury is secondary to acute tubular necrosis. The amy larkin is currently hemodialysis dependent. Unable to tolerate dialysis yesterday. Will plan for he modialysis again today. Will dialyze for 3 hours on a 3 K bath, calcium 2.5, monitor closely. 2. Hypernatremia, slowly improving. Continue free water flushes. 3. Metabolic acidosis secondary to acute kidney injury, improved. 4. Uremia with underlying dementia. Continue hemodialysis. Monitor mental status. 5. Severe sepsis secondary to urinary tract infection. Continue current antibiotic regimen. 5. Acute hypoxemic respiratory failure, possibly secondary to pneumonia. The patient is on a non-r ebreather. Continue. 6. Mineral bone disorder, monitor calcium and phosphorus levels. 7. Elevated troponin. Continue medical management and follow up with cardiology. 8. Dysphagia status post nasogastric tube. Continue tube feeding. Dictated By: CASA HORTON DO NR/NTS Conf#: [id number] DID#: [id number] CC: Giulia Hope;*EndCC*
[2017-02-16 10:11] LABS: ABNORMAL IP MESSAGE 1; HEMATOCRIT 32.1 % (37.0-47.0); HEMOGLOBIN 10.8 g/dl (12.0-16.0); MEAN CORPUSCULAR HEMOGLOBIN 30.1 pg (29.0-33.0); MEAN CORPUSCULAR HGB CONC 33.6 g/dl (32.0-37.0); MEAN CORPUSCULAR VOLUME 89.4 fl (82.0-101.0); MEAN PLATELET VOLUME 12.7 fl (7.4-10.4); NUCLEATED RED BLOOD CELLS% 1.7 /100WBC (0.0-0.0); PLATELET COUNT 36 10^3/UL (140-415); RED BLOOD COUNT 3.59 10^6/ul (4.20-5.40); RED CELL DISTRIBUTION WIDTH 18.4 % (11.5-14.5); WHITE BLOOD COUNT 23.1 10^3/ul (4.8-10.8)
[2017-02-16 10:16] LABS: POSITIVE DIFF @See below
[2017-02-16 10:41] LABS: ANISOCYTOSIS 1+ (0-0); ERYTHROBLAST% (NRBC) (M) 3 % (0-0); MICROCYTOSIS 1+ (0-0); MONOCYTES % (M) 2 % (0-11); OVALOCYTES 1+ (0-0); PLATELET ESTIMATE SIG DECREASED
[2017-02-16 10:54] LABS: CALCIUM 7.2 mg/dl (8.4-10.2); MAGNESIUM 1.8 mg/dl (1.7-2.5); PHOSPHORUS 5.6 mg/dl (2.5-4.9); POTASSIUM 4.1 mmol/L (3.5-5.1)
[2017-02-16 11:30] LABS: CREATININE 3.54 mg/dl (0.44-1.00)
--- NOTE | 2017-02-16 14:11 | PN ---
Date/Time of Note Date/Time of Note DATE: 02/16/17 TIME: 14:06 Assessment/Plan VTE Prophylaxis VTE Prophylaxis Intervention: SCD's Lines/Catheters IV Catheter Type (from Nrsg): Peripheral IV Urinary Cath still in place: Yes Reason Cath still needed: terminal illness/intractable pain Assessment/Plan Chief Complaint/Hosp Course Subjective 12.19 spoke with at length with and tiler's assistant at bedside 12.20 patient still not easily arousable Objective Physical exam General: Patient is laying in bed, curled, difficult to arouse Mentation: Patient is not alert and oriented 4, Head: Normocephalic atraumatic Eyes: EOMI, pupils reactive to light Neck: Supple, nontender, midline Respiratory: coarse to auscultation bilaterally Cardiovascular: tachycardic, no obvious murmurs Gastrointestinal: non-tender to palpation, bowel sounds heard. Neurological: Moves all extremities spontaneously Skin: No new skin lesions Assessment/Plan Severe sepsis secondary to dehydration and UTI - Patient urine culture growing gram negative rods. Currently on Ceftriaxone - Patient has been on comfort care/ hospice for the past 2 weeks per son. Has not had PO intake in the past 3 days which is consistent with Hospice. When explained to son, he states he was not well informed about what hospice entailed and would still like to pursue care for his mother as she was eating and talking 2 weeks ago - LA stable -resolving Thrombocytopenia -Dr. Montes consulted, 1 unit platelets ordered with dialysis -very poor prognosis, no signs of bleeding UTI - UA+ for infection - Most likely secondary to dehydration - Ceftriaxone hypernatremia -on D5w -nephro recs appreciated PANCHO on CKD - Patient baseline Cr 2.2 and renal failure is secondary to dehydration and natural progression of comorbid conditions - Dr. Reed on board and appreciated consultation. Continue with HD as tolerated and monitoring electrolytes closely. Watch sodium - Discussed with son and patient on tolerating well but would still like to continue with HD as patient can tolerate. Anemia -likely chronic, but abrupt drops likely 2/2 volume repletion -no signs of bleed -will transfuse if hgb <7.0 -iron deficient Dehydration - D5w and dialysis tachycardia -cardiology recs appreciated, no BB can be given 2/2 BP Severe hypernatremia- - 1/2 NS and will monitor - decreasing appropriately Hyperkalemia- -monitor Transaminitis- resolved - secondary to dehydration Leukocytosis- trending down - on IV antibiotics. continue monitoring Elevated troponin - most likely secondary to elevated Cr - EKG shows sinus tachycardia -cardiology consulted Dementia - continue medications -severe L cephalic vein thrombosis - keep limb elevated with warm compress - no anticoagulation at this time per family Disposition - spoke at length with and tiler's assistant, will also get palliative care on board - discussed need of PEG/HD to SNF vs true hospice, patient to speak to son - NG tube for tube feeds if patient conscious enough to swallow - patient is definitely hospice appropriate given imminent timing for intubation given inability to protect airway and severe chronic dementia Problems: Exam/Review of Systems Vital Signs Vitals Vital Signs Date Time Temp Pulse Resp B/P Pulse Ox O2 Delivery O2 Flow Rate FiO2 02/16/17 12:15 105 02/16/17 11:59 97.7 33 109/56 88 02/16/17 08:00 Simple Mask 5.0 Intake and Output 02/15/17 02/15/17 02/16/17 15:00 23:00 07:00 Intake Total 1000 ml 970 ml Output Total 1500 ml 900 ml Balance -500 ml 70 ml Results Result Diagram: 02/16/17 0907 02/16/17 0907 Results 24 hrs Laboratory Tests Test 02/16/17 07:08 02/16/17 09:07 Lab Scanned Report BLOOD TRANSFUSION White Blood Count 23.1 H Red Blood Count 3.59 #L Hemoglobin 10.8 #L Hematocrit 32.1 #L Mean Corpuscular Volume 89.4 Mean Corpuscular Hemoglobin 30.1 Mean Corpuscular Hemoglobin Concent 33.6 Red Cell Distribution Width 18.4 #H Platelet Count 36 #L Mean Platelet Volume 12.7 H Neutrophils % Segmented Neutrophils % (Manual) 70 Band Neutrophils % (Manual) 15 H Lymphocytes % Lymphocytes % (Manual) 13 L Monocytes % Monocytes % (Manual) 2 Eosinophils % Basophils % Nucleated Red Blood Cells % 3 H Neutrophils # Neutrophils # (Manual) 17.0 H Band Neutrophils # 3.4 H Absolute Lymphocytes (Manual) 3.0 H Lymphocytes # Monocytes # Absolute Monocytes (Manual) 0.4 Eosinophils # Basophils # Nucleated Red Blood Cells # Platelet Estimate SIG DECREASED Anisocytosis 1+ Microcytosis 1+ Ovalocytes 1+ Sodium Level 147 H Potassium Level 4.1 Chloride Level 114 H Carbon Dioxide Level 21 Anion Gap 16 Blood Urea Nitrogen 106 H Creatinine 3.54 H Glucose Level 159 Calcium Level 7.2 L Phosphorus Level 5.6 H Magnesium Level 1.8 Medications Medications Current Medications Ondansetron HCl (Zofran Inj) 4 mg Q6H PRN IV NAUSEA AND/OR VOMITING; Start at 15:30 Acetaminophen (Tylenol Supp) 650 mg Q6H PRN [place] PAIN LEVEL 1-3 OR FEVER; Start 02/12/17 at 15:30 Bisacodyl 10 mg 10 mg DAILY PRN [place] CONSTIPATION; Start 02/12/17 at 15:30 Ceftriaxone Sodium (Rocephin) 50 ml @ 100 mls/hr Q24H IVPB Last administered on 02/15/17 15:30; Admin Dose 100 MLS/HR; Start 02/12/17 at 15:30 Citalopram Hydrobromide (Celexa) 40 mg QAM NGT Last administered on 02/16/17 09:22; Admin Dose 40 MG; Start 02/13/17 at 09:00 Oxybutynin Chloride (Ditropan) 5 mg BID NGT Last administered on 02/16/17 09: 22; Admin Dose 5 MG; Start 02/12/17 at 21:00 Atorvastatin Calcium (Lipitor) 20 mg HS PO ; Start 02/12/17 at 21:00 Epoetin Weston 6000 units 6,000 units TuThSa@17 SC Last administered on 20:40; Admin Dose 6,000 UNITS; Start 02/15/17 at 17:00 Ferric Sodium Gluconate Complex/ Sodium Chloride (Ferrlecit/NS) 110 ml @ 110 mls/hr Q24H IVPB Last administered on 02/15/17 16:00; Admin Dose 110 MLS/HR; Start 02/15/17 at 16:00; Stop 02/22/17 at 16:59 YOKASTA TONG Feb 16, 2017 14:11
[2017-02-16] MEDS: CEFTRIAXONE 1 GM/50 ML (PMX) 50 ML IVPB SCH (16:52)
[2017-02-16] MEDS: SOD FERRIC GLUC COMPLX 125 MG in SOD CHLORIDE 0.9% 100 ML IVPB SCH (16:52)
[2017-02-16] MEDS: ATORVASTATIN 10 MG TAB PO SCH (22:10)
[2017-02-17 04:07] VITALS: BP 111/61; RESP 23
[2017-02-17 08:02] VITALS: BP 104/57; RESP 27
--- NOTE | 2017-02-17 08:05 | CONS ---
Date/Time of Note Date/Time of Note DATE: 02/17/17 TIME: 08:03 Assessment/Plan Assessment/Plan Additional Assessment/Plan Chart reviewed patient examined History of sepsis syndrome Severe dementia Urinary tract infection Fluid and electrolyte abnormalities Debility malnutrition I reviewed medical records in detail examined patient and have asked social work service to schedule family conference which is to be held on 02/17/2017 at 1100 hrs. Will discuss ongoing level of care patient is a candidate for hospice care outside acute care setting. Consultation Date/Type/Reason Admit Date/Time Feb 12, 2017 at 13:47 Past Medical History Medical History: renal disease, other (dementia) Past Surgical History Past Surgical Hx: no surgical history Social History Alcohol Use: none Smoking Status: Never smoker Drug Use: none Exam/Review of Systems Vital Signs Vitals Vital Signs Date Time Temp Pulse Resp B/P Pulse Ox O2 Delivery O2 Flow Rate FiO2 02/17/17 04:07 97.9 56 23 111/61 97 02/17/17 00:48 10.0 02/16/17 20:00 Simple Mask Intake and Output 02/16/17 02/16/17 02/17/17 15:00 23:00 07:00 Intake Total 1640 ml 730 ml Output Total 1850 ml 750 ml Balance -210 ml -20 ml Results Result Diagram: 02/16/17 0907 02/16/17 0907 Results 24 hrs Laboratory Tests Test 02/16/17 09:07 02/17/17 05:59 White Blood Count 23.1 H Red Blood Count 3.59 #L Hemoglobin 10.8 #L Hematocrit 32.1 #L Mean Corpuscular Volume 89.4 Mean Corpuscular Hemoglobin 30.1 Mean Corpuscular Hemoglobin Concent 33.6 Red Cell Distribution Width 18.4 #H Platelet Count 36 #L Mean Platelet Volume 12.7 H Neutrophils % Segmented Neutrophils % (Manual) 70 Band Neutrophils % (Manual) 15 H Lymphocytes % Lymphocytes % (Manual) 13 L Monocytes % Monocytes % (Manual) 2 Eosinophils % Basophils % Nucleated Red Blood Cells % 3 H Neutrophils # Neutrophils # (Manual) 17.0 H Band Neutrophils # 3.4 H Absolute Lymphocytes (Manual) 3.0 H Lymphocytes # Monocytes # Absolute Monocytes (Manual) 0.4 Eosinophils # Basophils # Nucleated Red Blood Cells # Platelet Estimate SIG DECREASED Anisocytosis 1+ Microcytosis 1+ Ovalocytes 1+ Sodium Level 147 H Potassium Level 4.1 Chloride Level 114 H Carbon Dioxide Level 21 Anion Gap 16 Blood Urea Nitrogen 106 H Creatinine 3.54 H Glucose Level 159 Calcium Level 7.2 L Phosphorus Level 5.6 H Magnesium Level 1.8 Lab Scanned Report BLOOD TRANSFUSION Medications Medications Current Medications Ondansetron HCl (Zofran Inj) 4 mg Q6H PRN IV NAUSEA AND/OR VOMITING; Start at 15:30 Acetaminophen (Tylenol Supp) [address] PAIN LEVEL 1-3 OR FEVER; Start 02/12/17 at 15:30 Bisacodyl 10 mg [address] CONSTIPATION; Start 02/12/17 at 15:30 Ceftriaxone Sodium (Rocephin) 50 ml @ 100 mls/hr Q24H IVPB Last administered on 02/16/17 16:52; Admin Dose 100 MLS/HR; Start 02/12/17 at 15:30 Citalopram Hydrobromide (Celexa) 40 mg QAM NGT Last administered on 02/16/17 09:22; Admin Dose 40 MG; Start 02/13/17 at 09:00 Oxybutynin Chloride (Ditropan) 5 mg BID NGT Last administered on 02/16/17 22: 10; Admin Dose 5 MG; Start 02/12/17 at 21:00 Atorvastatin Calcium (Lipitor) 20 mg HS PO Last administered on 02/16/17 22: 10; Admin Dose 20 MG; Start 02/12/17 at 21:00 Epoetin Weston 6000 units 6,000 units TuThSa@17 SC Last administered on 20:40; Admin Dose 6,000 UNITS; Start 02/15/17 at 17:00 Ferric Sodium Gluconate Complex/ Sodium Chloride (Ferrlecit/NS) 110 ml @ 110 mls/hr Q24H IVPB Last administered on 02/16/17 16:52; Admin Dose 110 MLS/HR; Start 02/15/17 at 16:00; Stop 02/22/17 at 16:59 TOMASZ GARCIA Feb 17, 2017 08:05
--- NOTE | 2017-02-17 08:19 | CONS ---
Date/Time of Note Date/Time of Note DATE: 02/17/17 TIME: 08:18 Consult Date/Type/Reason Admit Date/Time Feb 12, 2017 at 13:47 Type of Consultation: CArdiology Subjective Cardiology follow-up progress note: Subjective: Case discussed with staff and rhythm strip was reviewed. Patient remained in sinus rhythm/ sinus tachycardia. No episode of atrial fibrillation is reported. Patient remained nonverbal and is not able to provide history to me. on O2 Objective: General: elderly female in respiratory distress. Appeared to be thin and cachectic looking. HEENT: NC/AT. eyes are closed. NECK: NO JVD. no stridor. CV: Tachycardic. Systolic murmur; no gallop or rubs. PULM: Diffuse rhonchi. GI: SOFT, NT, ND, no rebound or guarding Extremity: + lower and upper extremity edema. neuro: Lethargic Psych: calm rectal: deferred : Deferred Objective Vital Signs Date Time Temp Pulse Resp B/P Pulse Ox O2 Delivery O2 Flow Rate FiO2 02/17/17 08:02 99.2 71 27 104/57 93 02/17/17 00:48 10.0 02/16/17 20:00 Simple Mask Intake and Output 02/16/17 02/16/17 02/17/17 15:00 23:00 07:00 Intake Total 1640 ml 730 ml Output Total 1850 ml 750 ml Balance -210 ml -20 ml Results/Medications Result Diagram: 02/16/17 0907 02/16/17 0907 Results 24 hrs Laboratory Tests Test 02/16/17 09:07 02/17/17 05:59 White Blood Count 23.1 H Red Blood Count 3.59 #L Hemoglobin 10.8 #L Hematocrit 32.1 #L Mean Corpuscular Volume 89.4 Mean Corpuscular Hemoglobin 30.1 Mean Corpuscular Hemoglobin Concent 33.6 Red Cell Distribution Width 18.4 #H Platelet Count 36 #L Mean Platelet Volume 12.7 H Neutrophils % Segmented Neutrophils % (Manual) 70 Band Neutrophils % (Manual) 15 H Lymphocytes % Lymphocytes % (Manual) 13 L Monocytes % Monocytes % (Manual) 2 Eosinophils % Basophils % Nucleated Red Blood Cells % 3 H Neutrophils # Neutrophils # (Manual) 17.0 H Band Neutrophils # 3.4 H Absolute Lymphocytes (Manual) 3.0 H Lymphocytes # Monocytes # Absolute Monocytes (Manual) 0.4 Eosinophils # Basophils # Nucleated Red Blood Cells # Platelet Estimate SIG DECREASED Anisocytosis 1+ Microcytosis 1+ Ovalocytes 1+ Sodium Level 147 H Potassium Level 4.1 Chloride Level 114 H Carbon Dioxide Level 21 Anion Gap 16 Blood Urea Nitrogen 106 H Creatinine 3.54 H Glucose Level 159 Calcium Level 7.2 L Phosphorus Level 5.6 H Magnesium Level 1.8 Lab Scanned Report BLOOD TRANSFUSION Medications Current Medications Ondansetron HCl (Zofran Inj) 4 mg Q6H PRN IV NAUSEA AND/OR VOMITING; Start at 15:30 Acetaminophen (Tylenol Supp) 650 mg Q6H PRN [place] PAIN LEVEL 1-3 OR FEVER; Start 02/12/17 at 15:30 Bisacodyl 10 mg 10 mg DAILY PRN [place] CONSTIPATION; Start 02/12/17 at 15:30 Ceftriaxone Sodium (Rocephin) 50 ml @ 100 mls/hr Q24H IVPB Last administered on 02/16/17 16:52; Admin Dose 100 MLS/HR; Start 02/12/17 at 15:30 Citalopram Hydrobromide (Celexa) 40 mg QAM NGT Last administered on 02/16/17 09:22; Admin Dose 40 MG; Start 02/13/17 at 09:00 Oxybutynin Chloride (Ditropan) 5 mg BID NGT Last administered on 02/16/17 22: 10; Admin Dose 5 MG; Start 02/12/17 at 21:00 Atorvastatin Calcium (Lipitor) 20 mg HS PO Last administered on 02/16/17 22: 10; Admin Dose 20 MG; Start 02/12/17 at 21:00 Epoetin Weston 6000 units 6,000 units TuThSa@17 SC Last administered on 20:40; Admin Dose 6,000 UNITS; Start 02/15/17 at 17:00 Ferric Sodium Gluconate Complex/ Sodium Chloride (Ferrlecit/NS) 110 ml @ 110 mls/hr Q24H IVPB Last administered on 02/16/17 16:52; Admin Dose 110 MLS/HR; Start 02/15/17 at 16:00; Stop 02/22/17 at 16:59 Assessment/Plan Chief Complaint/Hosp Course ASSESSMENT AND PLAN: 1. Sinus tachycardia, appeared to be multifactorial secondary to severe worsening anemia, respiratory failure, sepsis, etc. 2. Severe sepsis and dehydration, urinary tract infection with gram negative rods. 3. Severe hypernatremia. 4. Acute renal failure. 5. Severe encephalopathy secondary to above. 6. Worsening anemia. 7. Dehydration. 8. Mildly elevated troponin secondary to above. 9. Transaminitis. 10. History of dementia. 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 12. Malnutrition and low albumin level. 13. Dysphagia. RECOMMENDATIONS: Continue with the supportive care. Code status is DNR and prognosis is very poor. Unable to tolerate any beta-hilton due to her hypotension IV fluid is being managed as per renal team. Follow up renal function and recommendation. . Nutritional support as tolerated. Prognosis is very poor. consider palliative care. Thank you for this referral. We will continue to follow along with you. Problems: CHU SMART MD Feb 17, 2017 08:19
[2017-02-17] MEDS: OXYBUTYNIN 5 MG TAB NGT SCH ×2 (08:36→21:22)
[2017-02-17] MEDS: CITALOPRAM 20 MG TAB NGT SCH (08:36)
--- NOTE | 2017-02-17 09:43 | PN ---
DATE: 02/17/2017 SUBJECTIVE: The patient remains critically ill on a facemask at 10 liters. Patient had hemodialysi s yesterday. The patient has no change in mental status. OBJECTIVE: VITAL SIGNS: Blood pressure is 104/57, respiration 21, pulse 71, temperature 99.2. HEENT: Head is normocephalic. NECK: Supple. HEART: Regular rate. LUNGS: Show diminished breath sounds at base. ABDOMEN: Soft, nontender to palpation without rebound or guarding. EXTREMITIES: Negative for clubbing, cyanosis. Positive edema. DERMATOLOGIC: No rashes. MUSCULOSKELETAL: No joint effusions. NEUROLOGIC: No change in exam. MEDICATIONS: The patient's medications have been reviewed. LABORATORY DATA: Laboratory data from 02/17/2017 is currently pending. Laboratory data from 2016 reviewed. ASSESSMENT AND PLAN: 1. Nonoliguric acute kidney injury on top of chronic kidney disease stage IV with previous baseline creatinine 2.2 mg/dL. Etiology of acute kidney injury is secondary to acute tubular necrosis. The patient was initiated on hemodialysis. The patient's urinary output has improved. We will hold di alysis at this point and monitor to see if there are any signs of renal recovery. 2. Hypernatremia, improving. Continue free water flushes. 3. Metabolic acidosis secondary to acute kidney injury, improved. Continue to monitor. 4. Uremia with underlying advanced Alzheimer dementia. Continue to monitor. Continue dialysis. 5. Severe sepsis secondary to urinary tract infection and pneumonia. Continue current antibiotic r egimen. 6. Acute hypoxemic respiratory failure. The patient is currently on nonrebreather. Continue to fo llow with pulmonary. 7. Mineral bone disorder. Continue to monitor calcium and phosphorus levels. 8. Elevated troponin, likely due to demand ischemia. Continue to monitor. Follow up with cardiolo gy. 9. Dysphagia status post nasogastric tube. Continue tube feeding. 10. Anemia secondary to iron deficiency and chronic kidney disease. Continue IV iron. Continue Epogen. Continue blood transfusions as needed. Dictated By: CASA CROSS/FANNY Conf#: [id number] DID#: [id number]
[2017-02-17 11:51] VITALS: BP 104/54; RESP 27
[2017-02-17 12:40] LABS: ABNORMAL IP MESSAGE 1; HEMATOCRIT 30.6 % (37.0-47.0); HEMOGLOBIN 9.9 g/dl (12.0-16.0); MEAN CORPUSCULAR HEMOGLOBIN 31.5 pg (29.0-33.0); MEAN CORPUSCULAR HGB CONC 32.4 g/dl (32.0-37.0); MEAN CORPUSCULAR VOLUME 97.5 fl (82.0-101.0); MEAN PLATELET VOLUME 12.3 fl (7.4-10.4); NUCLEATED RED BLOOD CELLS% 7.2 /100WBC (0.0-0.0); RED BLOOD COUNT 3.14 10^6/ul (4.20-5.40); RED CELL DISTRIBUTION WIDTH 19.9 % (11.5-14.5)
[2017-02-17 12:53] LABS: PLATELET COUNT 123 10^3/UL (140-415); POSITIVE DIFF @See below; WHITE BLOOD COUNT 13.9 10^3/ul (4.8-10.8)
[2017-02-17 14:00] LABS: ANISOCYTOSIS 3+ (0-0); ERYTHROBLAST% (NRBC) (M) 4 % (0-0); MICROCYTOSIS 3+ (0-0); MONOCYTES % (M) 2 % (0-11); PLATELET ESTIMATE DECREASED; POIKILOCYTOSIS 2+ (0-0); POLYCHROMASIA 3+ (0-0)
--- NOTE | 2017-02-17 14:06 | PN ---
Date/Time of Note Date/Time of Note DATE: 02/17/17 TIME: 13:57 Assessment/Plan VTE Prophylaxis VTE Prophylaxis Intervention: SCD's Lines/Catheters IV Catheter Type (from Nrs): Saline Lock Urinary Cath still in place: Yes Reason Cath still needed: urinary retention Assessment/Plan Chief Complaint/Hosp Course Subjective 12.19 spoke with at length with and rag production worker at bedside 12.20 patient still not easily arousable 12. no acute changes in patient. Objective Physical exam General: Patient is laying in bed, curled, difficult to arouse Mentation: Patient is not alert and oriented 4, Head: Normocephalic atraumatic Eyes: EOMI, pupils reactive to light Neck: Supple, nontender, midline Respiratory: coarse to auscultation bilaterally Cardiovascular: tachycardic, no obvious murmurs Gastrointestinal: non-tender to palpation, bowel sounds heard. Neurological: Moves all extremities spontaneously Skin: No new skin lesions Assessment/Plan Severe sepsis secondary to dehydration and UTI - Patient urine culture growing gram negative rods. Currently on Ceftriaxone - Patient has been on comfort care/ hospice for the past 2 weeks per son. Has not had PO intake in the past 3 days which is consistent with Hospice. When explained to son, he states he was not well informed about what hospice entailed and would still like to pursue care for his mother as she was eating and talking 2 weeks ago - [place] stable -resolving Thrombocytopenia -Dr. Montes consulted, 1 unit platelets given 12.20 -very poor prognosis, no signs of bleeding UTI - UA+ for infection - Most likely secondary to dehydration - Ceftriaxone hypernatremia -on D5w -nephro recs appreciated PANCHO on CKD - Patient baseline Cr 2.2 and renal failure is secondary to dehydration and natural progression of comorbid conditions - Dr. Reed on board and appreciated consultation. Continue with HD as tolerated and monitoring electrolytes closely. Watch sodium - Discussed with son and patient on tolerating well but would still like to continue with HD as patient can tolerate. Anemia -likely chronic, but abrupt drops likely 2/2 volume repletion -no signs of bleed -will transfuse if hgb <7.0 -iron deficient Dehydration - volume overloaded now, peg tube free water flushes with HD tachycardia -cardiology recs appreciated, no BB can be given 2/2 BP Severe hypernatremia- - on free water flushes Hyperkalemia- -monitor Transaminitis- resolved - secondary to dehydration Leukocytosis - on IV antibiotics. continue monitoring Elevated troponin - most likely secondary to elevated Cr - EKG shows sinus tachycardia -cardiology recs appreciated Dementia - continue medications -severe, root cause of all issues L cephalic vein thrombosis - keep limb elevated with warm compress - no anticoagulation at this time per family Disposition - spoke at length with and rag production worker, will also get palliative care on board - discussed need of PEG/HD to SNF vs true hospice, Dr. Elizabeth spoke to patient and son. - NG tube for tube feeds for now - patient is definitely hospice appropriate given imminent timing for intubation given inability to protect airway and severe chronic dementia Problems: Exam/Review of Systems Vital Signs Vitals Vital Signs Date Time Temp Pulse Resp B/P Pulse Ox O2 Delivery O2 Flow Rate FiO2 02/17/17 11:51 98.7 105 27 104/54 85 02/17/17 08:00 Simple Mask 10.0 Intake and Output 02/16/17 02/16/17 02/17/17 15:00 23:00 07:00 Intake Total 1640 ml 730 ml Output Total 1850 ml 750 ml Balance -210 ml -20 ml Results Result Diagram: 02/17/17 1207 02/16/17 0907 Results 24 hrs Laboratory Tests Test 02/17/17 05:59 02/17/17 12:07 Lab Scanned Report BLOOD TRANSFUSION White Blood Count 13.9 #H Red Blood Count 3.14 L Hemoglobin 9.9 L Hematocrit 30.6 L Mean Corpuscular Volume 97.5 Mean Corpuscular Hemoglobin 31.5 Mean Corpuscular Hemoglobin Concent 32.4 Red Cell Distribution Width 19.9 H Platelet Count 123 #L Mean Platelet Volume 12.3 H Neutrophils % Lymphocytes % Monocytes % Eosinophils % Basophils % Nucleated Red Blood Cells % 7.2 H Neutrophils # Lymphocytes # Monocytes # Eosinophils # Basophils # Nucleated Red Blood Cells # Medications Medications Current Medications Ondansetron HCl (Zofran Inj) 4 mg Q6H PRN IV NAUSEA AND/OR VOMITING; Start at 15:30 Acetaminophen (Tylenol Supp) 650 mg Q6H PRN [place] PAIN LEVEL 1-3 OR FEVER; Start 02/12/17 at 15:30 Bisacodyl 10 mg 10 mg DAILY PRN [place] CONSTIPATION; Start 02/12/17 at 15:30 Ceftriaxone Sodium (Rocephin) 50 ml @ 100 mls/hr Q24H IVPB Last administered on 02/16/17 16:52; Admin Dose 100 MLS/HR; Start 02/12/17 at 15:30 Citalopram Hydrobromide (Celexa) 40 mg QAM NGT Last administered on 02/17/17 08:36; Admin Dose 40 MG; Start 02/13/17 at 09:00 Oxybutynin Chloride (Ditropan) 5 mg BID NGT Last administered on 02/17/17 08: 36; Admin Dose 5 MG; Start 02/12/17 at 21:00 Atorvastatin Calcium (Lipitor) 20 mg HS PO Last administered on 02/16/17 22: 10; Admin Dose 20 MG; Start 02/12/17 at 21:00 Epoetin Weston 6000 units 6,000 units TuThSa@17 SC Last administered on 20:40; Admin Dose 6,000 UNITS; Start 02/15/17 at 17:00 Ferric Sodium Gluconate Complex/ Sodium Chloride (Ferrlecit/NS) 110 ml @ 110 mls/hr Q24H IVPB Last administered on 02/16/17 16:52; Admin Dose 110 MLS/HR; Start 02/15/17 at 16:00; Stop 02/22/17 at 16:59 YOKASTA TONG Feb 17, 2017 14:06
[2017-02-17 15:24] LABS: CALCIUM 6.9 mg/dl (8.4-10.2); CREATININE 2.63 mg/dl (0.44-1.00); PHOSPHORUS 4.2 mg/dl (2.5-4.9); POTASSIUM 4.4 mmol/L (3.5-5.1)
[2017-02-17 15:43] VITALS: BP 79/48; RESP 26
[2017-02-17] MEDS: CEFTRIAXONE 1 GM/50 ML (PMX) 50 ML IVPB SCH (15:53)
[2017-02-17] MEDS: SOD FERRIC GLUC COMPLX 125 MG in SOD CHLORIDE 0.9% 100 ML IVPB SCH (16:13)
[2017-02-17] MEDS ORDERED: SOD CHLORIDE 0.9% 500 ML IV ONE (16:30)
[2017-02-17 18:15] LABS: Allen Test ACCEPTAB; Arterial Base Excess 1.3 mmol/L (-3.0-3); Arterial COHb 0.2 % (0.0-3.0); Arterial Fraction of Oxyhgb 91.7 % (93.0-99.0); Arterial MetHb 0.1 % (0.0-1.5); Arterial Total Hemglobin 10.1 g/dl (12.0-18.0); MODE MASK - NRB
[2017-02-17] MEDS: EPOETIN 3000 UNITS/1 ML INJ (ESRD) SC SCH (18:53)
[2017-02-17 19:50] VITALS: BP 106/58; RESP 18
[2017-02-17] MEDS: ATORVASTATIN 10 MG TAB PO SCH (21:23)
[2017-02-18] VITALS (13 sets, daily range): BP systolic 69–112; BP diastolic 44–63; PULSE 100–108; RESP 17–31
[2017-02-18] MEDS ORDERED: SOD CHLORIDE 0.9% 500 ML IV ONE ×2 (04:00→07:00)
[2017-02-18] MEDS ORDERED: ALBUMIN HUMAN 25% 50 ML ONE (04:32)
[2017-02-18] MEDS: ALBUMIN HUMAN 25% 100 ML IV SCH ×3 (04:44→21:57)
[2017-02-18] MEDS: OXYBUTYNIN 5 MG TAB NGT SCH (08:09)
[2017-02-18] MEDS: CITALOPRAM 20 MG TAB NGT SCH (08:09)
[2017-02-18 08:35] LABS: ABNORMAL IP MESSAGE 1; HEMOGLOBIN 8.3 g/dl (12.0-16.0); MEAN CORPUSCULAR HEMOGLOBIN 31.3 pg (29.0-33.0); MEAN CORPUSCULAR HGB CONC 33.2 g/dl (32.0-37.0); MEAN CORPUSCULAR VOLUME 94.3 fl (82.0-101.0); MEAN PLATELET VOLUME 13.1 fl (7.4-10.4); NUCLEATED RED BLOOD CELLS% 1.8 /100WBC (0.0-0.0); RED BLOOD COUNT 2.65 10^6/ul (4.20-5.40); RED CELL DISTRIBUTION WIDTH 16.7 % (11.5-14.5); WHITE BLOOD COUNT 12.1 10^3/ul (4.8-10.8)
[2017-02-18 08:39] LABS: PLATELET COUNT 62 10^3/UL (140-415); POSITIVE DIFF @See below
[2017-02-18 08:43] LABS: CALCIUM 6.6 mg/dl (8.4-10.2); CREATININE 2.74 mg/dl (0.44-1.00); MAGNESIUM 1.5 mg/dl (1.7-2.5); PHOSPHORUS 4.6 mg/dl (2.5-4.9)
[2017-02-18 08:45] LABS: POTASSIUM 2.9 mmol/L (3.5-5.1)
--- NOTE | 2017-02-18 09:06 | RADRPT ---
PROCEDURE: XR Chest. CLINICAL INDICATION: Hypoxia TECHNIQUE: Single AP view of the chest was obtained COMPARISON: 02/15/2017 FINDINGS: Increased patchy opacities at the right greater than left lung bases. Heart and mediastinum are unch anged. No acute osseous abnormality. Enteric feeding tube terminates over the stomach. IMPRESSION: Bibasilar patchy opacities compatible with atelectasis or pneumonia. RPTAT: KK Physician Radha Date Time Electronically viewed and signed by Mayra Greene Physician on 02/18/2017 09:06 PA/
[2017-02-18] MEDS ORDERED: MAGNESIUM SULFATE 2 GM/50 ML 50 ML IVPB ONE (09:30)
[2017-02-18] MEDS ORDERED: POTASSIUM CHLORIDE 30 MEQ in DEXTROSE 5% 250 ML IVPB ONE (10:00)
[2017-02-18] MEDS ORDERED: ALBUTEROL/IPRATROPIUM (NEB) 3 ML AMP HHN PRN (10:00)
[2017-02-18] MEDS ORDERED: VANCOMYCIN IV PER PHARMACY XX SCH (10:00)
[2017-02-18 10:08] LABS: ANISOCYTOSIS 2+ (0-0); BASOPHILS % (M) 1 % (0-2); BURR CELLS 1+ (0-0); ERYTHROBLAST% (NRBC) (M) 4 % (0-0); METAMYELOCYTES %M 2 % (0-0); MICROCYTOSIS 1+ (0-0); MONOCYTES % (M) 2 % (0-11); MYELOCYTES % (M) 1 % (0-0); PLATELET ESTIMATE SIG DECREASED; POIKILOCYTOSIS 1+ (0-0); POLYCHROMASIA 3+ (0-0); TEAR DROP CELLS 1+ (0-0)
[2017-02-18] MEDS: SOD CHLORIDE 0.9% 1,000 ML IV SCH (10:49)
[2017-02-18] MEDS ORDERED: VANCOMYCIN 1 GM in SODIUM CHLORIDE 0.45 % 250 ML IVPB SCH (11:30)
[2017-02-18] MEDS: PIPER-TAZO 2.25 GM (PMX) 50 ML IVPB SCH ×2 (11:30→18:16)
--- NOTE | 2017-02-18 11:58 | CONS ---
Date/Time of Note Date/Time of Note DATE: 02/18/17 TIME: 11:54 Assessment/Plan Assessment/Plan Additional Assessment/Plan Chest x-ray was reviewed from today which is showing bilateral infiltrative changes. Assessment and recommendations; next 1. Patient admitted with severe sepsis from combination of UTI from E. coli as well as bilateral pneumonia. 2. Persistent hypoxemia. 3. Some element of pulmonary edema. 4. Advanced dementia. 5. Acute renal failure possibly on chronic renal requiring hemodialysis. 6. Severe hypernatremia and hyperkalemia on admission with interval correction. 7. Anemia and thrombocytopenia. Continue current treatment. Prognosis appears very poor. Consultation Date/Type/Reason Admit Date/Time Feb 12, 2017 at 13:47 Date of Consultation: Feb 18, 2017 Type of Consultation: Pulmonary Reason for Consultation Pulmonary consultation requested for evaluation of pneumonia and sepsis. History of presenting illness; patient is an 81-year-old female who was admitted to the hospital on the of this month with altered mental status. Patient was diagnosed with severe sepsis from combination of pneumonia and UTI and also had severe hyponatremia and hyperkalemia as well as acute renal failure. Patient since has require dialysis. By the time I saw the patient, the patient is on nonrebreather mask and is completely unresponsive. Past medical history; 1. Advanced dementia 2. Acute on chronic renal failure. 3. Anemia. Medications; reviewed. Allergies; not available. Family history, occupational history, not available. Social history; not available. Review of systems; unable to be obtained. General exam; elderly woman, on 100% nonrebreather mask, unresponsive. Appearing tachypneic. Past Medical History Medical History: renal disease, other (dementia) Past Surgical History Past Surgical Hx: no surgical history Social History Alcohol Use: none Smoking Status: Never smoker Drug Use: none Exam/Review of Systems Vital Signs Vitals Vital Signs Date Time Temp Pulse Resp B/P Pulse Ox O2 Delivery O2 Flow Rate FiO2 02/18/17 08:14 101 21 108/55 89 02/18/17 04:04 98.6 02/18/17 01:15 15.0 02/17/17 20:00 Non Rebreather Intake and Output 02/17/17 02/17/17 02/18/17 15:00 23:00 07:00 Intake Total 920 ml 780 ml Output Total 200 ml 300 ml Balance 720 ml 480 ml Exam HEENT exam; supple neck, positive JVD. No lymphadenopathy. Midline trachea. No thyromegaly. Pupils are small bilaterally. No neck masses. Chest exam; diminished breath sounds throughout. S1-S2 audible, no murmurs. Regular rhythm. Abdomen exam; soft, scaphoid. No organomegaly. Bowel sounds are sluggish. Extremity exam; scattered ecchymosis. No edema. 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 Results Result Diagram: 02/18/17 0739 02/18/17 0739 Results 24 hrs Laboratory Tests Test 02/17/17 12:07 02/17/17 14:10 02/17/17 16:00 02/18/17 07:39 White Blood Count 13.9 #H 12.1 H Red Blood Count 3.14 L 2.65 L Hemoglobin 9.9 L 8.3 L Hematocrit 30.6 L 25.0 L Mean Corpuscular Volume 97.5 94.3 Mean Corpuscular Hemoglobin 31.5 31.3 Mean Corpuscular Hemoglobin Concent 32.4 33.2 Red Cell Distribution Width 19.9 H 16.7 H Platelet Count 123 #L 62 #L Mean Platelet Volume 12.3 H 13.1 H Neutrophils % Segmented Neutrophils % (Manual) 75 44 Band Neutrophils % (Manual) 13 H 44 H Lymphocytes % Lymphocytes % (Manual) 10 L 6 L Monocytes % Monocytes % (Manual) 2 2 Eosinophils % Basophils % Nucleated Red Blood Cells % 4 H 4 H Neutrophils # Neutrophils # (Manual) 10.7 H 6.0 Band Neutrophils # 1.8 H 5.3 H Absolute Lymphocytes (Manual) 1.3 0.7 L Lymphocytes # Monocytes # Absolute Monocytes (Manual) 0.2 L 0.2 L Eosinophils # Basophils # Nucleated Red Blood Cells # Platelet Estimate DECREASED SIG DECREASED Polychromasia 3+ 3+ Poikilocytosis 2+ 1+ Anisocytosis 3+ 2+ Microcytosis 3+ 1+ Sodium Level 138 141 Potassium Level 4.4 2.9 *L Chloride Level 103 # 109 Carbon Dioxide Level 19 L 19 L Anion Gap 20 H 16 Blood Urea Nitrogen 64 #H 73 H Creatinine 2.63 H 2.74 H Glucose Level 119 # 204 Calcium Level 6.9 L 6.6 L Phosphorus Level 4.2 4.6 Magnesium Level 2.0 1.5 L Blood Gas Specimen Source Blood arterial Arterial Blood Date Drawn 02/17/2017 5:53:05 PM Arterial Blood pH (Temp corrected) 7.592 *H Arterial Blood pCO2 (Temp correct) 23.4 L Arterial Blood pO2 (Temp corrected) 58.6 L Arterial Blood HCO3 22.0 Arterial Blood Base Excess 1.3 Arterial Blood Oxygen Saturation 92.0 L Wilman Test ACCEPTAB Arterial Blood Gas Puncture Site Right Radial Arterial Blood Carboxyhemoglobin 0.2 Arterial Blood Methemoglobin 0.1 Blood Gas A-a O2 Differential 631.0 H Oxyhemoglobin Percent 91.7 L Total Hemoglobin 10.1 L Blood Gas Temperature 37.0 Blood Gas Modality MASK - NRB FiO2 100.0 Blood Gas Critical Value Read Back ARPITA NORTON RN Blood Gas Notified Whom LS Blood Gas Notified Time 02/17/2017 6:15:29 PM Basophils % (Manual) 1 Metamyelocytes % (manual) 2 H Myelocytes % (Manual) 1 H Basophils # (Manual) 0.1 H Metamyelocytes # 0.2 H Myelocytes # 0.1 H Tear Drop Cells 1+ Medications Medications Current Medications Ondansetron HCl (Zofran Inj) 4 mg Q6H PRN IV NAUSEA AND/OR VOMITING; Start at 15:30 Acetaminophen (Tylenol Supp) 650 mg Q6H PRN [place] PAIN LEVEL 1-3 OR FEVER Last administered on 02/18/17 00:19; Admin Dose 650 MG; Start 02/12/17 at 15:30 Bisacodyl (Dulcolax Supp) 10 mg DAILY PRN [place] CONSTIPATION; Start 02/12/17 at 15:30 Citalopram Hydrobromide (Celexa) 40 mg QAM NGT Last administered on 02/18/17 08:09; Admin Dose 40 MG; Start 02/13/17 at 09:00 Epoetin Weston 6000 units 6,000 units TuThSa@17 SC Last administered on 18:53; Admin Dose 6,000 UNITS; Start 02/15/17 at 17:00 Ferric Sodium Gluconate Complex 125 mg/Sodium Chloride 110 ml @ 110 mls/hr Q24H IVPB Last administered on 02/17/17 16:13; Admin Dose 110 MLS/HR; Start 02/15/17 at 16:00; Stop 02/22/17 at 16:59 Albumin Human 100 ml @ 100 mls/hr Q8H IV Last administered on 02/18/17 04:44 ; Admin Dose 100 MLS/HR; Start 02/18/17 at 04:00; Stop 02/18/17 at 20:59 Potassium Chloride 30 meq/ Dextrose 265 ml @ 88.333 mls/ hr ONCE ONCE IVPB ; Start 02/18/17 at 10:00; Stop 02/18/17 at 12:59 Piperacillin Sod/ Tazobactam Sod (Zosyn 2.25gm/ 50ml (Pmx)) 50 ml @ 100 mls/hr Q6 IVPB Last administered on 02/18/17 11:30; Admin Dose 100 MLS/HR; Start at 11:30 Methylprednisolone Sodium Succinate 80 mg 80 mg Q8 IV ; Start 02/18/17 at 14:00 Sodium Chloride 1,000 ml @ 50 mls/hr Q20H IV Last administered on 02/18/17 10:49; Admin Dose 50 MLS/HR; Start 02/18/17 at 10:00 Vancomycin HCl/ Sodium Chloride (Vancocin/Sodium Chloride) 250 ml @ 125 mls/hr ONCE IVPB ; Start 02/18/17 at 11:30; Stop 02/18/17 at 13:29 DENNIS LOWE Feb 18, 2017 11:58
[2017-02-18] MEDS: METHYLPREDNISOLONE 125 MG INJ IV SCH ×2 (13:27→21:43)
--- NOTE | 2017-02-18 13:40 | PN ---
DATE: 02/18/2017 SUBJECTIVE: The patient is in serious critical condition. The patient remains hypertensive on a no nrebreather facemask. No other events noted. OBJECTIVE: VITAL SIGNS: Blood pressure 108/55, respiration 21, pulse 101. HEENT: Head is normocephalic. NECK: Supple. HEART: Regular rate. LUNGS: Show diminished breath sounds at base. ABDOMEN: Soft, nontender to palpation without rebound or guarding. EXTREMITIES: Negative for clubbing, cyanosis. Positive edema. DERMATOLOGIC: No rashes. MUSCULOSKELETAL: No joint effusions. NEUROLOGIC: No change in exam. MEDICATIONS: The patient's medications have been reviewed. LABORATORY DATA: Sodium 141, potassium 3.9, chloride 109, BUN 73, creatinine 2.74, magnesium 1.5. White count 12.1, hemoglobin 8.3, platelet count is 62. ASSESSMENT AND PLAN: 1. Nonoliguric acute kidney injury on top of chronic kidney disease stage IV with previous baseline creatinine 2.2 mg/dL. Etiology secondary to acute tubular necrosis. The patient was initiated on hemodialysis. The patient has not been able to tolerate dialysis for the last 48 hours due to hypot ension. At this point, we will continue to monitor, attempt hemodialysis if the patient is hemodyna mically stable. We will monitor for any signs of renal recovery. 2. Hyponatremia, improved. Continue free water flushes. 3. Metabolic acidosis secondary to acute kidney injury, improved. 4. Hypokalemia. Will replete with potassium chloride and correct underlying hypomagnesemia. 5. Hypomagnesemia, replete with magnesium sulfate 2 grams IV x1. 6. Uremia with advanced Alzheimer dementia. Continue to monitor, continue dialysis as tolerated. 7. Sepsis secondary to urinary tract infection and pneumonia. Continue current antibiotic regimen. 8. Acute hypoxemic respiratory failure. Continue face mask. Follow up with pulmonary. 9. Mineral bone disorder. Monitor calcium and phosphorus levels. 10. Elevated troponin, which is demand ischemia. Continue to monitor. 11. Dysphagia status post NG tube. Continue tube feeding. 12. Anemia. Monitor hemoglobin and hematocrit levels. Continue IV iron. Continue blood transfus ions and Epogen as needed. Dictated By: CASA CROSS/FANNY Conf#: [id number] DID#: [id number]
[2017-02-18] MEDS: ALBUTEROL/IPRATROPIUM (NEB) 3 ML AMP HHN SCH ×2 (14:46→21:37)
--- NOTE | 2017-02-18 15:57 | PN ---
Date/Time of Note Date/Time of Note DATE: 02/18/17 TIME: 15:41 Assessment/Plan VTE Prophylaxis VTE Prophylaxis Intervention: SCD's Lines/Catheters IV Catheter Type (from Nrsg): Saline Lock Urinary Cath still in place: Yes Reason Cath still needed: terminal illness/intractable pain Assessment/Plan Chief Complaint/Hosp Course Subjective 12.19 spoke with at length with and on site property manager at bedside 12.20 patient still not easily arousable 12.21 no acute changes in patient. 12.22 low BP and worsening hypoxia overnight Objective Physical exam General: Patient is laying in bed, curled, difficult to arouse Mentation: Patient is not alert and oriented 4, Head: Normocephalic atraumatic Eyes: EOMI, pupils reactive to light Neck: Supple, nontender, midline Respiratory: coarse to auscultation bilaterally Cardiovascular: tachycardic, no obvious murmurs Gastrointestinal: non-tender to palpation, bowel sounds heard. Neurological: Moves all extremities spontaneously Skin: No new skin lesions Assessment/Plan Severe sepsis secondary to dehydration and UTI, now also bilat PNA - increased abx to vanc/zosyn due to worsening hypoxia/bp with new PNA seen on CXR -adding fluids -f/u blood cultures Bilateral PNA -new onset -likely 2/2 aspiration given patient's worsening dementia/resp status/ability to protect airway -patient's family states no intubation under any circumstance hypotension -BP more stable after fluids -likely 2/2 sepsis Thrombocytopenia -Dr. Montes consulted, 1 unit platelets given 12.20 -DIC? fibrinogen/ddimer ordered, likely 2/2 sepsis -very poor prognosis UTI - UA+ for infection - Most likely secondary to dehydration - vanc/zosyn hypernatremia -on fluids -nephro recs appreciated PANCHO on CKD - Patient baseline Cr 2.2 and renal failure is secondary to dehydration and natural progression of comorbid conditions - Dr. Reed on board and appreciated consultation. Continue with HD as tolerated and monitoring electrolytes closely. Watch sodium - Discussed with son and patient on tolerating well but would still like to continue with HD as patient can tolerate. Anemia -iron deficient -?GI bleed with dark stool, fecal occult ordered -PPI drip -GI consulted Dehydration - volume overloaded now, peg tube free water flushes with HD - need IV fluids for BP tachycardia -cardiology recs appreciated, no BB can be given 2/2 BP Severe hypernatremia- - on free water flushes Hyperkalemia- -monitor Transaminitis- resolved - secondary to dehydration Leukocytosis - on IV antibiotics. continue monitoring Elevated troponin - most likely secondary to elevated Cr - EKG shows sinus tachycardia -cardiology recs appreciated Dementia - continue medications -severe, root cause of all issues L cephalic vein thrombosis - keep limb elevated with warm compress - no anticoagulation at this time per family Disposition - spoke at length with and on site property manager, will also get palliative care on board - discussed need of PEG/HD to SNF vs true hospice, Dr. Elizabeth spoke to patient and son. - NG tube for tube feeds for now - patient is definitely hospice appropriate given imminent timing for intubation given inability to protect airway and severe chronic dementia, now in DIC 2/2 sepsis -no intubation under any circumstance per family Problems: Exam/Review of Systems Vital Signs Vitals Vital Signs Date Time Temp Pulse Resp B/P Pulse Ox O2 Delivery O2 Flow Rate FiO2 02/18/17 15:32 15.0 100 02/18/17 14:46 102 22 92 Non Rebreather Mask 02/18/17 13:23 112/53 02/18/17 04:04 98.6 Intake and Output 02/17/17 02/17/17 02/18/17 15:00 23:00 07:00 Intake Total 920 ml 780 ml Output Total 200 ml 300 ml Balance 720 ml 480 ml Results Result Diagram: 02/18/17 0739 02/18/17 0739 Results 24 hrs Laboratory Tests Test 02/17/17 16:00 02/18/17 07:39 02/18/17 11:55 Blood Gas Specimen Source Blood arterial Arterial Blood Date Drawn 02/17/2017 5:53:05 PM Arterial Blood pH (Temp corrected) 7.592 *H Arterial Blood pCO2 (Temp correct) 23.4 L Arterial Blood pO2 (Temp corrected) 58.6 L Arterial Blood HCO3 22.0 Arterial Blood Base Excess 1.3 Arterial Blood Oxygen Saturation 92.0 L Wilman Test ACCEPTAB Arterial Blood Gas Puncture Site Right Radial Arterial Blood Carboxyhemoglobin 0.2 Arterial Blood Methemoglobin 0.1 Blood Gas A-a O2 Differential 631.0 H Oxyhemoglobin Percent 91.7 L Total Hemoglobin 10.1 L Blood Gas Temperature 37.0 Blood Gas Modality MASK - NRB FiO2 100.0 Blood Gas Critical Value Read Back ARPITA NORTON RN Blood Gas Notified Whom LS Blood Gas Notified Time 02/17/2017 6:15:29 PM White Blood Count 12.1 H Red Blood Count 2.65 L Hemoglobin 8.3 L Hematocrit 25.0 L Mean Corpuscular Volume 94.3 Mean Corpuscular Hemoglobin 31.3 Mean Corpuscular Hemoglobin Concent 33.2 Red Cell Distribution Width 16.7 H Platelet Count 62 #L Mean Platelet Volume 13.1 H Neutrophils % Segmented Neutrophils % (Manual) 44 Band Neutrophils % (Manual) 44 H Lymphocytes % Lymphocytes % (Manual) 6 L Monocytes % Monocytes % (Manual) 2 Eosinophils % Basophils % Basophils % (Manual) 1 Metamyelocytes % (manual) 2 H Myelocytes % (Manual) 1 H Nucleated Red Blood Cells % 4 H Neutrophils # Neutrophils # (Manual) 6.0 Band Neutrophils # 5.3 H Absolute Lymphocytes (Manual) 0.7 L Lymphocytes # Monocytes # Absolute Monocytes (Manual) 0.2 L Eosinophils # Basophils # Basophils # (Manual) 0.1 H Metamyelocytes # 0.2 H Myelocytes # 0.1 H Nucleated Red Blood Cells # Platelet Estimate SIG DECREASED Polychromasia 3+ Poikilocytosis 1+ Anisocytosis 2+ Microcytosis 1+ Tear Drop Cells 1+ Sodium Level 141 Potassium Level 2.9 *L Chloride Level 109 Carbon Dioxide Level 19 L Anion Gap 16 Blood Urea Nitrogen 73 H Creatinine 2.74 H Glucose Level 204 Calcium Level 6.6 L Phosphorus Level 4.6 Magnesium Level 1.5 L Ammonia 14 Medications Medications Current Medications Ondansetron HCl (Zofran Inj) 4 mg Q6H PRN IV NAUSEA AND/OR VOMITING; Start at 15:30 Acetaminophen (Tylenol Supp) 650 mg Q6H PRN [place] PAIN LEVEL 1-3 OR FEVER Last administered on 02/18/17 00:19; Admin Dose 650 MG; Start 02/12/17 at 15:30 Bisacodyl (Dulcolax Supp) 10 mg DAILY PRN [place] CONSTIPATION; Start 02/12/17 at 15:30 Citalopram Hydrobromide (Celexa) 40 mg QAM NGT Last administered on 02/18/17 08:09; Admin Dose 40 MG; Start 02/13/17 at 09:00 Epoetin Weston 6000 units 6,000 units TuThSa@17 SC Last administered on 18:53; Admin Dose 6,000 UNITS; Start 02/15/17 at 17:00 Ferric Sodium Gluconate Complex 125 mg/Sodium Chloride 110 ml @ 110 mls/hr Q24H IVPB Last administered on 02/17/17 16:13; Admin Dose 110 MLS/HR; Start 02/15/17 at 16:00; Stop 02/22/17 at 16:59 Albumin Human 100 ml @ 100 mls/hr Q8H IV Last administered on 02/18/17 13:15 ; Admin Dose 100 MLS/HR; Start 02/18/17 at 04:00; Stop 02/18/17 at 20:59 Piperacillin Sod/ Tazobactam Sod (Zosyn 2.25gm/ 50ml (Pmx)) 50 ml @ 100 mls/hr Q6 IVPB Last administered on 02/18/17 11:30; Admin Dose 100 MLS/HR; Start at 11:30 Methylprednisolone Sodium Succinate 80 mg 80 mg Q8 IV Last administered on 13:27; Admin Dose 80 MG; Start 02/18/17 at 14:00 Sodium Chloride (NS) 1,000 ml @ 50 mls/hr Q20H IV Last administered on 10:49; Admin Dose 50 MLS/HR; Start 02/18/17 at 10:00 YOKASTA TONG Feb 18, 2017 15:57
[2017-02-18] MEDS ORDERED: POTASSIUM CHLORIDE 50 ML IVPB SCH (16:00)
--- NOTE | 2017-02-18 16:14 | CONS ---
Date/Time of Note Date/Time of Note DATE: 02/18/17 TIME: 16:13 Consult Date/Type/Reason Admit Date/Time Feb 12, 2017 at 13:47 Type of Consultation: cv Subjective Cardiology follow-up progress note: Subjective: Case discussed with staff and rhythm strip was reviewed. Patient remained in sinus rhythm/ sinus tachycardia. No episode of atrial fibrillation is reported. Patient remained nonverbal and is not able to provide history to me. on O2 Objective: General: elderly female in respiratory distress. Appeared to be thin and cachectic looking. HEENT: NC/AT. eyes are closed. NECK: NO JVD. no stridor. CV: Tachycardic. Systolic murmur; no gallop or rubs. PULM: Diffuse rhonchi. GI: SOFT, NT, ND, no rebound or guarding Extremity: + lower and upper extremity edema. neuro: Lethargic Psych: calm rectal: deferred : Deferred Objective Vital Signs Date Time Temp Pulse Resp B/P Pulse Ox O2 Delivery O2 Flow Rate FiO2 02/18/17 16:09 103 02/18/17 15:32 15.0 100 02/18/17 14:46 22 92 Non Rebreather Mask 02/18/17 13:23 112/53 02/18/17 04:04 98.6 Intake and Output 02/17/17 02/17/17 02/18/17 15:00 23:00 07:00 Intake Total 920 ml 780 ml Output Total 200 ml 300 ml Balance 720 ml 480 ml Results/Medications Result Diagram: 02/18/17 0739 02/18/17 0739 Results 24 hrs Laboratory Tests Test 02/18/17 07:39 02/18/17 11:55 White Blood Count 12.1 H Red Blood Count 2.65 L Hemoglobin 8.3 L Hematocrit 25.0 L Mean Corpuscular Volume 94.3 Mean Corpuscular Hemoglobin 31.3 Mean Corpuscular Hemoglobin Concent 33.2 Red Cell Distribution Width 16.7 H Platelet Count 62 #L Mean Platelet Volume 13.1 H Neutrophils % Segmented Neutrophils % (Manual) 44 Band Neutrophils % (Manual) 44 H Lymphocytes % Lymphocytes % (Manual) 6 L Monocytes % Monocytes % (Manual) 2 Eosinophils % Basophils % Basophils % (Manual) 1 Metamyelocytes % (manual) 2 H Myelocytes % (Manual) 1 H Nucleated Red Blood Cells % 4 H Neutrophils # Neutrophils # (Manual) 6.0 Band Neutrophils # 5.3 H Absolute Lymphocytes (Manual) 0.7 L Lymphocytes # Monocytes # Absolute Monocytes (Manual) 0.2 L Eosinophils # Basophils # Basophils # (Manual) 0.1 H Metamyelocytes # 0.2 H Myelocytes # 0.1 H Nucleated Red Blood Cells # Platelet Estimate SIG DECREASED Polychromasia 3+ Poikilocytosis 1+ Anisocytosis 2+ Microcytosis 1+ Tear Drop Cells 1+ Sodium Level 141 Potassium Level 2.9 *L Chloride Level 109 Carbon Dioxide Level 19 L Anion Gap 16 Blood Urea Nitrogen 73 H Creatinine 2.74 H Glucose Level 204 Calcium Level 6.6 L Phosphorus Level 4.6 Magnesium Level 1.5 L Ammonia 14 Medications Current Medications Ondansetron HCl (Zofran Inj) 4 mg Q6H PRN IV NAUSEA AND/OR VOMITING; Start at 15:30 Acetaminophen (Tylenol Supp) 650 mg Q6H PRN [place] PAIN LEVEL 1-3 OR FEVER Last administered on 02/18/17 00:19; Admin Dose 650 MG; Start 02/12/17 at 15:30 Bisacodyl (Dulcolax Supp) 10 mg DAILY PRN [place] CONSTIPATION; Start 02/12/17 at 15:30 Citalopram Hydrobromide (Celexa) 40 mg QAM NGT Last administered on 02/18/17 08:09; Admin Dose 40 MG; Start 02/13/17 at 09:00 Epoetin Weston 6000 units 6,000 units TuThSa@17 SC Last administered on 18:53; Admin Dose 6,000 UNITS; Start 02/15/17 at 17:00 Ferric Sodium Gluconate Complex 125 mg/Sodium Chloride 110 ml @ 110 mls/hr Q24H IVPB Last administered on 02/17/17 16:13; Admin Dose 110 MLS/HR; Start 02/15/17 at 16:00; Stop 02/22/17 at 16:59 Albumin Human 100 ml @ 100 mls/hr Q8H IV Last administered on 02/18/17 13:15 ; Admin Dose 100 MLS/HR; Start 02/18/17 at 04:00; Stop 02/18/17 at 20:59 Piperacillin Sod/ Tazobactam Sod (Zosyn 2.25gm/ 50ml (Pmx)) 50 ml @ 100 mls/hr Q6 IVPB Last administered on 02/18/17 11:30; Admin Dose 100 MLS/HR; Start at 11:30 Methylprednisolone Sodium Succinate 80 mg 80 mg Q8 IV Last administered on 13:27; Admin Dose 80 MG; Start 02/18/17 at 14:00 Sodium Chloride 1,000 ml @ 50 mls/hr Q20H IV Last administered on 02/18/17 10:49; Admin Dose 50 MLS/HR; Start 02/18/17 at 10:00 Pantoprazole 80 mg/Sodium Chloride 100 ml @ 10 mls/hr Q10H IV ; Start at 17:00 Pantoprazole/ Sodium Chloride (Protonix Iv/NS) 100 ml @ 400 mls/hr ONCE ONCE IVPB ; Start 02/18/17 at 16:30; Stop 02/18/17 at 16:44 Assessment/Plan Chief Complaint/Hosp Course ASSESSMENT AND PLAN: 1. Sinus tachycardia, appeared to be multifactorial secondary to severe worsening anemia, respiratory failure, sepsis, etc. 2. Severe sepsis and dehydration, urinary tract infection with gram negative rods. 3. Severe hypernatremia. 4. Acute renal failure. 5. Severe encephalopathy secondary to above. 6. Worsening anemia. 7. Dehydration. 8. Mildly elevated troponin secondary to above. 9. Transaminitis. 10. History of dementia. 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 12. Malnutrition and low albumin level. 13. Dysphagia. RECOMMENDATIONS: Continue with the supportive care. Code status is DNR and prognosis is very poor. Unable to tolerate any beta-hilton due to her hypotension IV fluid is being managed as per renal team. Follow up renal function and recommendation. replace lytes pnr cont Nutritional support as tolerated. Prognosis is very poor. f/u with palliative care rec. Thank you for this referral. We will continue to follow along with you. Problems: CHU SMART MD Feb 18, 2017 16:14
[2017-02-18] MEDS ORDERED: PANTOPRAZOLE IV 80 MG in SOD CHLORIDE 0.9% 100 ML IVPB ONE (16:30)
[2017-02-18 16:49] LABS: INR 1.39; PROTIME 17.3 Sec (11.9-14.9); PT RATIO 1.4
[2017-02-18] MEDS: SOD FERRIC GLUC COMPLX 125 MG in SOD CHLORIDE 0.9% 100 ML IVPB SCH (16:57)
[2017-02-18] MEDS: PANTOPRAZOLE IV 80 MG in SOD CHLORIDE 0.9% 100 ML IV SCH (18:16)
[2017-02-19] VITALS (16 sets, daily range): BP systolic 97–132; BP diastolic 50–68; PULSE 95–115; RESP 17–38
[2017-02-19] MEDS: PIPER-TAZO 2.25 GM (PMX) 50 ML IVPB SCH ×5 (01:08→23:20)
--- NOTE | 2017-02-19 04:52 | RADRPT ---
PROCEDURE: CT Brain without contrast. CLINICAL INDICATION: Altered mental status. TECHNIQUE: A CT of the brain was performed on a GE 64-slice CT scanner utilizing axial imaging fro m the skull base through the vertex without intravenous contrast. Multiplanar reformatted images wer e made. The CTDIvol is 44.52 mGy and the DLP is 720.23 mGycm. DICOM images are available. One or more of the following dose reduction techniques were used: - Automated exposure control. - Adjustment of the mA and/or kV according to patient size. - Use of iterative reconstruction technique. COMPARISON: None. FINDINGS: There is no intracranial hemorrhage, mass effect, or midline shift. No extra-axial fluid collection is seen. Moderate generalized parenchymal volume loss is identified. The ventricles are proportion ate in size. There is no evidence of hydrocephalus. Moderate decreased attenuation is seen in the p eriventricular and deep white matter, compatible with microvascular ischemic disease. The lewis white matter differentiation is well preserved with no acute infarct detected. The osseous structures and visualized paranasal sinuses are unremarkable. IMPRESSION: 1. No evidence of acute intracranial pathology. 2. Moderate generalized parenchymal volume loss. 3. 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 RPTAT: HRSR Physician Suellen Date Time Electronically viewed and signed by Physician Suellen on 02/19/2017 04:52 RR/
[2017-02-19] MEDS: METHYLPREDNISOLONE 125 MG INJ IV SCH ×3 (05:58→20:59)
[2017-02-19] MEDS: SOD CHLORIDE 0.9% 1,000 ML IV SCH ×2 (05:59→23:20)
[2017-02-19] MEDS: PANTOPRAZOLE IV 80 MG in SOD CHLORIDE 0.9% 100 ML IV SCH ×3 (06:15→23:22)
--- NOTE | 2017-02-19 07:37 | RADRPT ---
PROCEDURE: CT chest without intravenous contrast CLINICAL INDICATION: ABNORMAL CXR, HYPOXIA. COMPARISON: Chest plain film02/18/2017. TECHNIQUE: Axial images of the chest with sagittal and coronal reconstructions. DICOM images are yadira ilable. DOSE ESTIMATE: CTDI vol = 9.91 mGy. DLP = 382.98 mGy-cm. One or more of the following dose reducti on techniques were used: automated exposure control, adjustment of the mA and/or kV according to pat ient size, or use of iterative reconstruction. FINDINGS: Lungs: Dense bilateral lower lobe pneumonic consolidation with air bronchograms. Multifocal airspace disease involves the anterior and apical posterior segments of the left upper lobe, the posterior r ight upper lobe. Pseudotumor sign with fluid in the superior right major fissure. Calcified granulom a within the anterior right upper lobe. 4 mm nodular opacity in the right apex on axial image 34. [place] bpleural anterior right upper lobe nodule measuring 5 mm in axial image 75. Considerations including infectious/inflammatory change, granulomatous, and metastatic disease. Pleura: Small bilateral pleural effusions. Airway: The central tracheobronchial tree is clear. 12 mm precarinal lymph node present on axial image 54. Sub centimeter right upper and bilateral lowe r paratracheal lymph nodes. Vessels: No significant aortic and great vessel origin atherosclerotic calcifications. Heart: No cardiomegaly or pericardial effusion. No coronary arterial atherosclerotic calcifications . Bones: No fracture, dislocation or aggressive appearing lesion. Spondylotic changes present througho ut the thoracic spine. Soft tissues: Normal. Visualized neck: Normal. Visualized abdomen: Surgical absence of gallbladder. Calcified splenic granulomata. Additional comment: None. IMPRESSION: 1. Dense bilateral lower lobe consolidation. 2. Multifocal airspace disease within the anterior and apical left upper and posterior right upper lobes representing infectious/inflammatory change (pneumonia) and less likely pulmonary edema. 3. Small bilateral pleural effusions. 4. Indeterminate for an 5 mm nodules within the right upper lobe. 5. 12 mm precarinal lymph node. RPTAT: HRSR Physician Suellen Date Time Electronically viewed and signed by Physician Suellen on 02/19/2017 07:36 RR/
[2017-02-19 07:59] LABS: ABNORMAL IP MESSAGE 1; HEMATOCRIT 22.3 % (37.0-47.0); HEMOGLOBIN 7.3 g/dl (12.0-16.0); MEAN CORPUSCULAR HEMOGLOBIN 30.3 pg (29.0-33.0); MEAN CORPUSCULAR HGB CONC 32.7 g/dl (32.0-37.0); MEAN CORPUSCULAR VOLUME 92.5 fl (82.0-101.0); MEAN PLATELET VOLUME 13.1 fl (7.4-10.4); NUCLEATED RED BLOOD CELLS% 0.7 /100WBC (0.0-0.0); PLATELET COUNT 70 10^3/UL (140-415); RED BLOOD COUNT 2.41 10^6/ul (4.20-5.40); RED CELL DISTRIBUTION WIDTH 16.8 % (11.5-14.5)
[2017-02-19 08:13] LABS: POSITIVE DIFF @See below
[2017-02-19 08:16] LABS: CALCIUM 7.4 mg/dl (8.4-10.2); CREATININE 3.13 mg/dl (0.44-1.00); MAGNESIUM 2.3 mg/dl (1.7-2.5); PHOSPHORUS 4.6 mg/dl (2.5-4.9); POTASSIUM 3.2 mmol/L (3.5-5.1)
[2017-02-19] MEDS: ALBUTEROL/IPRATROPIUM (NEB) 3 ML AMP HHN SCH ×3 (08:40→20:29)
[2017-02-19] MEDS: CITALOPRAM 20 MG TAB NGT SCH (09:46)
[2017-02-19] MEDS: BALSAM PERU/CASTOR OIL 60 GM TUBE TOP SCH (09:46)
[2017-02-19 10:27] LABS: ANISOCYTOSIS 1+ (0-0); ERYTHROBLAST% (NRBC) (M) 2 % (0-0); GIANT THROMBO% (M) 1 % (0-0); MICROCYTOSIS 1+ (0-0); MONOCYTES % (M) 1 % (0-11); PLATELET ESTIMATE SIG DECREASED; POLYCHROMASIA 2+ (0-0); REACTIVE LYMPHOCYTES% (M) 1 % (0-0)
[2017-02-19] MEDS ORDERED: GLUCOSE GEL 15 GRAM TUBE PO PRN ×2 (10:30)
[2017-02-19] MEDS ORDERED: GLUCAGON 1 MG INJ IM PRN (10:30)
[2017-02-19] MEDS ORDERED: GLUCOSE GEL 15 GRAM TUBE BUCCAL PRN (10:30)
[2017-02-19] MEDS ORDERED: DEXTROSE 50% 50 ML SYRINGE IV PRN ×2 (10:30)
[2017-02-19] MEDS ORDERED: POTASSIUM CHLORIDE 20 MEQ in DEXTROSE 5% 100 ML IVPB ONE (10:30)
--- NOTE | 2017-02-19 11:00 | PN ---
Date/Time of Note Date/Time of Note DATE: 02/19/17 TIME: 10:56 Assessment/Plan VTE Prophylaxis VTE Prophylaxis Intervention: other Lines/Catheters IV Catheter Type (from Rust): Saline Lock Urinary Cath still in place: Yes Reason Cath still needed: urinary retention Assessment/Plan Chief Complaint/Hosp Course SUBJECTIVE: all noted bp is now stable slightly hypoxemic no nausea, vomiting, new rash, hematuria, melena cxr reviewed uop remains low d/w Dr Reed OBJECTIVE: HEENT: Head is normocephalic. NECK: Supple. HEART: Regular rate. LUNGS: Show diminished breath sounds at base. ABDOMEN: Soft, nontender to palpation without rebound or guarding. EXTREMITIES: Negative for clubbing, cyanosis. Positive edema. DERMATOLOGIC: No rashes. MUSCULOSKELETAL: No joint effusions. NEUROLOGIC: No change in exam. MEDICATIONS: The patient's medications have been reviewed. ASSESSMENT AND PLAN: 1. Nonoliguric acute kidney injury on top of chronic kidney disease stage IV with previous baseline creatinine 2.2 mg/dL. Etiology secondary to acute tubular necrosis. The patient was initiated on hemodialysis. The patient has not been able to tolerate dialysis for the past few days due to hypotension. At this point, we will continue to monitor, attempt hemodialysis if the patient is hemodynamically stable. We will monitor for any signs of renal recovery. 2. Hyponatremia, improved. Continue free water flushes. 3. Metabolic acidosis secondary to acute kidney injury, improved. 4. Hypokalemia. Will replete with potassium chloride and correct underlying hypomagnesemia. 5. Hypomagnesemia, replete with magnesium sulfate 2 grams IV x1. 6. Uremia with advanced Alzheimer dementia. Continue to monitor, continue dialysis as tolerated. 7. Sepsis secondary to urinary tract infection and pneumonia. Continue current antibiotic regimen. 8. Acute hypoxemic respiratory failure. Continue face mask. Follow up with pulmonary. 9. Mineral bone disorder. Monitor calcium and phosphorus levels. 10. Elevated troponin, which is demand ischemia. Continue to monitor. 11. Dysphagia status post NG tube. Continue tube feeding. 12. Anemia. Monitor hemoglobin and hematocrit levels. Continue IV iron. Continue blood transfusions and Epogen as needed. Problems: Exam/Review of Systems Vital Signs Vitals Vital Signs Date Time Temp Pulse Resp B/P Pulse Ox O2 Delivery O2 Flow Rate FiO2 02/19/17 08:05 95 02/19/17 08:02 98.4 32 117/56 91 02/18/17 21:41 Non Rebreather Mask 15.0 02/18/17 15:32 100 Intake and Output 02/18/17 02/18/17 02/19/17 15:00 23:00 07:00 Intake Total 465 ml 1290 ml 1160 ml Output Total 300 ml 400 ml Balance 465 ml 990 ml 760 ml Results Result Diagram: 02/19/17 0613 02/19/17 0613 Results 24 hrs Laboratory Tests Test 02/18/17 11:55 02/18/17 16:13 02/19/17 06:13 Ammonia 14 Prothrombin Time 17.3 H Prothrombin Time Ratio 1.4 INR International Normalized Ratio 1.39 Fibrinogen 623.0 H D-Dimer White Blood Count 14.0 H Red Blood Count 2.41 L Hemoglobin 7.3 L Hematocrit 22.3 L Mean Corpuscular Volume 92.5 Mean Corpuscular Hemoglobin 30.3 Mean Corpuscular Hemoglobin Concent 32.7 Red Cell Distribution Width 16.8 H Platelet Count 70 L Mean Platelet Volume 13.1 H Neutrophils % Segmented Neutrophils % (Manual) 49 Band Neutrophils % (Manual) 40 H Lymphocytes % Lymphocytes % (Manual) 9 L Reactive Lymphocytes % (Manual) 1 H Monocytes % Monocytes % (Manual) 1 Eosinophils % Basophils % Nucleated Red Blood Cells % 2 H Neutrophils # Neutrophils # (Manual) 7.6 H Band Neutrophils # 5.6 H Absolute Lymphocytes (Manual) 1.2 Lymphocytes # Reactive Lymphocytes # 0.1 H Monocytes # Absolute Monocytes (Manual) 0.1 L Eosinophils # Basophils # Nucleated Red Blood Cells # Platelet Estimate SIG DECREASED Giant Platelets 1 H Polychromasia 2+ Anisocytosis 1+ Microcytosis 1+ Sodium Level 143 Potassium Level 3.2 L Chloride Level 109 Carbon Dioxide Level 19 L Anion Gap 18 H Blood Urea Nitrogen 81 H Creatinine 3.13 H Glucose Level 305 H Calcium Level 7.4 L Phosphorus Level 4.6 Magnesium Level 2.3 Medications Medications Current Medications Ondansetron HCl (Zofran Inj) 4 mg Q6H PRN IV NAUSEA AND/OR VOMITING; Start at 15:30 Acetaminophen (Tylenol Supp) 650 mg Q6H PRN [place] PAIN LEVEL 1-3 OR FEVER Last administered on 02/18/17t 00:19; Admin Dose 650 MG; Start 02/12/17 at 15:30 Bisacodyl (Dulcolax Supp) 10 mg DAILY PRN [place] CONSTIPATION; Start 02/12/17 at 15:30 Citalopram Hydrobromide (Celexa) 40 mg QAM NGT Last administered on 02/19/17 09:46; Admin Dose 40 MG; Start 02/13/17 at 09:00 Epoetin Weston 6000 units 6,000 units TuThSa@17 SC Last administered on 18:53; Admin Dose 6,000 UNITS; Start 02/15/17 at 17:00 Ferric Sodium Gluconate Complex 125 mg/Sodium Chloride 110 ml @ 110 mls/hr Q24H IVPB Last administered on 02/18/17 16:57; Admin Dose 110 MLS/HR; Start 02/15/17 at 16:00; Stop 02/22/17 at 16:59 Piperacillin Sod/ Tazobactam Sod (Zosyn 2.25gm/ 50ml (Pmx)) 50 ml @ 100 mls/hr Q6 IVPB Last administered on 02/19/17 05:56; Admin Dose 100 MLS/HR; Start at 11:30 Methylprednisolone Sodium Succinate 80 mg 80 mg Q8 IV Last administered on 05:58; Admin Dose 80 MG; Start 02/18/17 at 14:00 Sodium Chloride 1,000 ml @ 50 mls/hr Q20H IV Last administered on 02/19/17 05:59; Admin Dose 50 MLS/HR; Start 02/18/17 at 10:00 Pantoprazole 80 mg/Sodium Chloride 100 ml @ 10 mls/hr Q10H IV Last administered on 02/19/17 06:15; Admin Dose 10 MLS/HR; Start 02/18/17 at 17:00 Potassium Chloride/Dextrose (KCl/D5W) 110 ml @ 55 mls/hr ONCE ONCE IVPB ; Start 02/19/17 at 10:30; Stop 02/19/17 at 12:29 Diagnostic Test (Pha) (Accu-Chek) 1 ea 02 XX ; Start 02/20/17 at 02:00 Insulin Glargine (Lantus) 8 unit DAILY@20 SC ; Start 02/19/17 at 20:00 Insulin Aspart (Novolog Insulin Pen) NOVOLOG *MODERATE* ALGORITHM Q6 SC ; Start 02/19/17 at 12:00 Miscellaneous Information 1 ea NOTE XX ; Start 02/19/17 at 10:30 Glucose (Glutose) 15 gm Q15M PRN PO DECREASED GLUCOSE; Start 02/19/17 at 10:30 Glucose (Glutose) 22.5 gm Q15M PRN PO DECREASED GLUCOSE; Start 02/19/17 at 10: 30 Dextrose (D50w Syringe) 25 ml Q15M PRN IV DECREASED GLUCOSE; Start 02/19/17 at 10:30 Dextrose (D50w Syringe) 50 ml Q15M PRN IV DECREASED GLUCOSE; Start 02/19/17 at 10:30 Glucagon (Glucagen) 1 mg Q15M PRN IM DECREASED GLUCOSE; Start 02/19/17 at 10: 30 Glucose (Glutose) 15 gm Q15M PRN BUCCAL DECREASED GLUCOSE; Start 02/19/17 at 10:30 DIMITRY ENCINAS DO Feb 19, 2017 11:00
--- NOTE | 2017-02-19 11:02 | CONS ---
Date/Time of Note Date/Time of Note DATE: 02/19/17 TIME: 10:38 Assessment/Plan Assessment/Plan Chief Complaint/Hosp Course Assessment/Plan Anemia Continue PPI tx Severe sepsis secondary to dehydration and UTI UTI- on ABX Bilat PNA- on ABX PANCHO on CKD Dehydration Severe hypernatremia Hyperkalemia Transaminitis R/T dehydration Leukocytosis Elevated troponin Dementia Plan: Continue PPI drip Continue to monitor labs H/H, transfuse less than 7.0 Will hold off on any invasive procedures Poor prognosis, appropriate for hospice. Patient seen in collaboration with Dr. Abdi Problems: Consultation Date/Type/Reason Admit Date/Time Feb 12, 2017 at 13:47 Date of Consultation: Feb 19, 2017 Type of Consultation: GI Reason for Consultation Anemia Hx of Present Illness This is an 81 year old female with multiple comorbidities, including renal failure s/p rt femoral HD catheter placement, however has not had HD secondary to hypotension. Admitted for severe sepsis secondary to UTI, pt also found to have bilateral PNA during admission, secondary to aspiration. She is unresponsive at and therefore HPI is limited, HPI obtained from previous medical records. Apparently patient had been on comfort care/ hospice for the past 2 weeks prior to admission, Son did not fully understand what Hospice was , and wanted his mother treated therefore brought her to the hospital. GI has been consulted for new anemia and dark stools. She was started on PPI drip, given 2 units of PRBS and FFP. HGB responded appropriately post transfusion, currently trending down. She has not had any further episodes of dark stools. At this time Son is considering palliative care. Dr. Elizabeth has been asked to consult. Currently patient with poor prognosis would not tolerate endoscopies at this time. Will continue NGT for feeding, PPI drip, and continue to monitor H /H transfuse as needed. Pt appears to be hospice appropriate. Subjective hx not possible: pt non-verbal Past Medical History Medical History: renal disease, other (dementia) Past Surgical History Past Surgical Hx: no surgical history Social History Alcohol Use: none Smoking Status: Never smoker Drug Use: none Exam/Review of Systems Vital Signs Vitals Vital Signs Date Time Temp Pulse Resp B/P Pulse Ox O2 Delivery O2 Flow Rate FiO2 02/19/17 08:05 95 02/19/17 08:02 98.4 32 117/56 91 02/18/17 21:41 Non Rebreather Mask 15.0 02/18/17 15:32 100 Intake and Output 02/18/17 02/18/17 02/19/17 15:00 23:00 07:00 Intake Total 465 ml 1290 ml 1160 ml Output Total 300 ml 400 ml Balance 465 ml 990 ml 760 ml Exam PHYSICAL EXAMINATION: GENERAL: ill appearing, non-verbal SKIN: No lesions, no stigmata chronic liver disease, no evidence of bleeding diathesis LYMPHATIC: No palpable lymphadenopathy. HEAD: Normocephalic, atraumatic, no tenderness. EYES: Pupils equal reactive to light and accommodation, full extraocular movements, sclera clear, non-icteric, no discharge. EARS/NOSE AND THROAT: Ears normal, nose normal, oropharynx normal, oral membranes well hydrated without lesions. NECK: Supple, no masses, thyroid normal. CHEST: Inspection within normal limits. CARDIOVASCULAR: Heart: Regular rate and rhythm, hypotension RESPIRATORY: Rales, diminished GASTROINTESTINAL AND LIVER: Abdomen: Soft, non tenderness, non-distended, no hernias, no masses, no organomegaly, no ascites, no guarding, no rebound tenderness, normoactive bowel sounds. Rectal: Deferred. GENITOURINARY: Female genitalia within normal limits, catheter in place EXTREMITIES: BLE edema Results Result Diagram: 02/19/17 0613 02/19/17 0613 Results 24 hrs Laboratory Tests Test 02/18/17 11:55 02/18/17 16:13 02/19/17 06:13 Ammonia 14 Prothrombin Time 17.3 H Prothrombin Time Ratio 1.4 INR International Normalized Ratio 1.39 Fibrinogen 623.0 H D-Dimer White Blood Count 14.0 H Red Blood Count 2.41 L Hemoglobin 7.3 L Hematocrit 22.3 L Mean Corpuscular Volume 92.5 Mean Corpuscular Hemoglobin 30.3 Mean Corpuscular Hemoglobin Concent 32.7 Red Cell Distribution Width 16.8 H Platelet Count 70 L Mean Platelet Volume 13.1 H Neutrophils % Segmented Neutrophils % (Manual) 49 Band Neutrophils % (Manual) 40 H Lymphocytes % Lymphocytes % (Manual) 9 L Reactive Lymphocytes % (Manual) 1 H Monocytes % Monocytes % (Manual) 1 Eosinophils % Basophils % Nucleated Red Blood Cells % 2 H Neutrophils # Neutrophils # (Manual) 7.6 H Band Neutrophils # 5.6 H Absolute Lymphocytes (Manual) 1.2 Lymphocytes # Reactive Lymphocytes # 0.1 H Monocytes # Absolute Monocytes (Manual) 0.1 L Eosinophils # Basophils # Nucleated Red Blood Cells # Platelet Estimate SIG DECREASED Giant Platelets 1 H Polychromasia 2+ Anisocytosis 1+ Microcytosis 1+ Sodium Level 143 Potassium Level 3.2 L Chloride Level 109 Carbon Dioxide Level 19 L Anion Gap 18 H Blood Urea Nitrogen 81 H Creatinine 3.13 H Glucose Level 305 H Calcium Level 7.4 L Phosphorus Level 4.6 Magnesium Level 2.3 Medications Medications Current Medications Ondansetron HCl (Zofran Inj) 4 mg Q6H PRN IV NAUSEA AND/OR VOMITING; Start at 15:30 Acetaminophen (Tylenol Supp) 650 mg Q6H PRN [place] PAIN LEVEL 1-3 OR FEVER Last administered on 02/18/17 00:19; Admin Dose 650 MG; Start 02/12/17 at 15:30 Bisacodyl (Dulcolax Supp) 10 mg DAILY PRN [place] CONSTIPATION; Start 02/12/17 at 15:30 Citalopram Hydrobromide (Celexa) 40 mg QAM NGT Last administered on 02/19/17 09:46; Admin Dose 40 MG; Start 02/13/17 at 09:00 Epoetin [place] 6000 units 6,000 units TuThSa@17 SC Last administered on 18:53; Admin Dose 6,000 UNITS; Start 02/15/17 at 17:00 Ferric Sodium Gluconate Complex 125 mg/Sodium Chloride 110 ml @ 110 mls/hr Q24H IVPB Last administered on 02/18/17 16:57; Admin Dose 110 MLS/HR; Start 02/15/17 at 16:00; Stop 02/22/17 at 16:59 Piperacillin Sod/ Tazobactam Sod (Zosyn 2.25gm/ 50ml (Pmx)) 50 ml @ 100 mls/hr Q6 IVPB Last administered on 02/19/17 05:56; Admin Dose 100 MLS/HR; Start at 11:30 Methylprednisolone Sodium Succinate 80 mg 80 mg Q8 IV Last administered on 05:58; Admin Dose 80 MG; Start 02/18/17 at 14:00 Sodium Chloride 1,000 ml @ 50 mls/hr Q20H IV Last administered on 02/19/17t 05:59; Admin Dose 50 MLS/HR; Start 02/18/17 at 10:00 Pantoprazole 80 mg/Sodium Chloride 100 ml @ 10 mls/hr Q10H IV Last administered on 02/19/17t 06:15; Admin Dose 10 MLS/HR; Start 02/18/17 at 17:00 Potassium Chloride/Dextrose (KCl/D5W) 110 ml @ 55 mls/hr ONCE ONCE IVPB ; Start 02/19/17 at 10:30; Stop 02/19/17 at 12:29 Diagnostic Test (Pha) (Accu-Chek) 1 ea 02 XX ; Start 02/20/17 at 02:00 Insulin Glargine (Lantus) 8 unit DAILY@20 SC ; Start 02/19/17 at 20:00 Insulin Aspart (Novolog Insulin Pen) NOVOLOG *MODERATE* ALGORITHM Q6 SC ; Start 02/19/17 at 12:00 Miscellaneous Information 1 ea NOTE XX ; Start 02/19/17 at 10:30 Glucose (Glutose) 15 gm Q15M PRN PO DECREASED GLUCOSE; Start 02/19/17 at 10:30 Glucose (Glutose) 22.5 gm Q15M PRN PO DECREASED GLUCOSE; Start 02/19/17 at 10: 30 Dextrose (D50w Syringe) 25 ml Q15M PRN IV DECREASED GLUCOSE; Start 02/19/17 at 10:30 Dextrose (D50w Syringe) 50 ml Q15M PRN IV DECREASED GLUCOSE; Start 02/19/17 at 10:30 Glucagon (Glucagen) 1 mg Q15M PRN IM DECREASED GLUCOSE; Start 02/19/17 at 10: 30 Glucose (Glutose) 15 gm Q15M PRN BUCCAL DECREASED GLUCOSE; Start 02/19/17 at 10:30 LEI MONTES Feb 19, 2017 10:48
[2017-02-19] MEDS: INSULIN ASPART [NOVOLOG] 3 ML PEN SC SCH ×2 (11:31→18:27)
--- NOTE | 2017-02-19 11:52 | CONS ---
Date/Time of Note Date/Time of Note DATE: 02/19/17 TIME: 11:51 Consult Date/Type/Reason Admit Date/Time Feb 12, 2017 at 13:47 Type of Consultation: CV Subjective Cardiology follow-up progress note: Subjective: Case discussed with staff and rhythm strip was reviewed. Patient remained in sinus rhythm/ sinus tachycardia. No episode of atrial fibrillation is reported. Discussed with Dr. Otriz and Dr. Villareal Patient remained nonverbal and is not able to provide history to me. on O2 Objective: General: elderly female in respiratory distress. Appeared to be thin and cachectic looking. On oxygen HEENT: NC/AT. eyes are closed. NECK: NO JVD. no stridor. CV: Tachycardic. Systolic murmur; no gallop or rubs. PULM: Diffuse rhonchi. GI: SOFT, NT, ND, no rebound or guarding Extremity: + lower and upper extremity edema. neuro: Lethargic Psych: calm rectal: deferred : Deferred Objective Vital Signs Date Time Temp Pulse Resp B/P Pulse Ox O2 Delivery O2 Flow Rate FiO2 02/19/17 08:05 95 02/19/17 08:02 98.4 32 117/56 91 02/18/17 21:41 Non Rebreather Mask 15.0 02/18/17 15:32 100 Intake and Output 02/18/17 02/18/17 02/19/17 15:00 23:00 07:00 Intake Total 465 ml 1290 ml 1160 ml Output Total 300 ml 400 ml Balance 465 ml 990 ml 760 ml Results/Medications Result Diagram: 02/19/17 0613 02/19/17 0613 Results 24 hrs Laboratory Tests Test 02/18/17 11:55 02/18/17 16:13 02/19/17 06:13 02/19/17 11:18 Ammonia 14 Prothrombin Time 17.3 H Prothrombin Time Ratio 1.4 INR International Normalized Ratio 1.39 Fibrinogen 623.0 H D-Dimer White Blood Count 14.0 H Red Blood Count 2.41 L Hemoglobin 7.3 L Hematocrit 22.3 L Mean Corpuscular Volume 92.5 Mean Corpuscular Hemoglobin 30.3 Mean Corpuscular Hemoglobin Concent 32.7 Red Cell Distribution Width 16.8 H Platelet Count 70 L Mean Platelet Volume 13.1 H Neutrophils % Segmented Neutrophils % (Manual) 49 Band Neutrophils % (Manual) 40 H Lymphocytes % Lymphocytes % (Manual) 9 L Reactive Lymphocytes % (Manual) 1 H Monocytes % Monocytes % (Manual) 1 Eosinophils % Basophils % Nucleated Red Blood Cells % 2 H Neutrophils # Neutrophils # (Manual) 7.6 H Band Neutrophils # 5.6 H Absolute Lymphocytes (Manual) 1.2 Lymphocytes # Reactive Lymphocytes # 0.1 H Monocytes # Absolute Monocytes (Manual) 0.1 L Eosinophils # Basophils # Nucleated Red Blood Cells # Platelet Estimate SIG DECREASED Giant Platelets 1 H Polychromasia 2+ Anisocytosis 1+ Microcytosis 1+ Sodium Level 143 Potassium Level 3.2 L Chloride Level 109 Carbon Dioxide Level 19 L Anion Gap 18 H Blood Urea Nitrogen 81 H Creatinine 3.13 H Glucose Level 305 H Calcium Level 7.4 L Phosphorus Level 4.6 Magnesium Level 2.3 Bedside Glucose 369 H Medications Current Medications Ondansetron HCl (Zofran Inj) 4 mg Q6H PRN IV NAUSEA AND/OR VOMITING; Start at 15:30 Acetaminophen (Tylenol Supp) 650 mg Q6H PRN [place] PAIN LEVEL 1-3 OR FEVER Last administered on 02/18/17 00:19; Admin Dose 650 MG; Start 02/12/17 at 15:30 Bisacodyl (Dulcolax Supp) 10 mg DAILY PRN [place] CONSTIPATION; Start 02/12/17 at 15:30 Citalopram Hydrobromide (Celexa) 40 mg QAM NGT Last administered on 02/19/17 09:46; Admin Dose 40 MG; Start 02/13/17 at 09:00 Epoetin [place]on 6000 units 6,000 units TuThSa@17 SC Last administered on 18:53; Admin Dose 6,000 UNITS; Start 02/15/17 at 17:00 Ferric Sodium Gluconate Complex 125 mg/Sodium Chloride 110 ml @ 110 mls/hr Q24H IVPB Last administered on 02/18/17 16:57; Admin Dose 110 MLS/HR; Start 02/15/17 at 16:00; Stop 02/22/17 at 16:59 Piperacillin Sod/ Tazobactam Sod (Zosyn 2.25gm/ 50ml (Pmx)) 50 ml @ 100 mls/hr Q6 IVPB Last administered on 02/19/17 05:56; Admin Dose 100 MLS/HR; Start at 11:30 Methylprednisolone Sodium Succinate 80 mg 80 mg Q8 IV Last administered on 05:58; Admin Dose 80 MG; Start 02/18/17 at 14:00 Sodium Chloride 1,000 ml @ 50 mls/hr Q20H IV Last administered on 02/19/17 05:59; Admin Dose 50 MLS/HR; Start 02/18/17 at 10:00 Pantoprazole 80 mg/Sodium Chloride 100 ml @ 10 mls/hr Q10H IV Last administered on 02/19/17 06:15; Admin Dose 10 MLS/HR; Start 02/18/17 at 17:00 Potassium Chloride/Dextrose (KCl/D5W) 110 ml @ 55 mls/hr ONCE ONCE IVPB Last administered on 02/19/17 11:22; Admin Dose 55 MLS/HR; Start 02/19/17 at 10:30 ; Stop 02/19/17 at 12:29 Diagnostic Test (Pha) (Accu-Chek) 1 ea 02 XX ; Start 02/20/17 at 02:00 Insulin Glargine (Lantus) 8 unit DAILY@20 SC ; Start 02/19/17 at 20:00 Insulin Aspart (Novolog Insulin Pen) NOVOLOG *MODERATE* ALGORITHM Q6 SC Last administered on 02/19/17 11:31; Admin Dose 12 UNIT; Start 02/19/17 at 12:00 Miscellaneous Information 1 ea NOTE XX ; Start 02/19/17 at 10:30 Glucose (Glutose) 15 gm Q15M PRN PO DECREASED GLUCOSE; Start 02/19/17 at 10:30 Glucose (Glutose) 22.5 gm Q15M PRN PO DECREASED GLUCOSE; Start 02/19/17 at 10: 30 Dextrose (D50w Syringe) 25 ml Q15M PRN IV DECREASED GLUCOSE; Start 02/19/17 at 10:30 Dextrose (D50w Syringe) 50 ml Q15M PRN IV DECREASED GLUCOSE; Start 02/19/17 at 10:30 Glucagon (Glucagen) 1 mg Q15M PRN IM DECREASED GLUCOSE; Start 02/19/17 at 10: 30 Glucose (Glutose) 15 gm Q15M PRN BUCCAL DECREASED GLUCOSE; Start 12/23/17 at 10:30 Assessment/Plan Chief Complaint/Hosp Course ASSESSMENT AND PLAN: 1. Sinus tachycardia, appeared to be multifactorial secondary to severe worsening anemia, respiratory failure, sepsis, etc. 2. Severe sepsis and dehydration, urinary tract infection with gram negative rods. 3. Severe hypernatremia. 4. Acute renal failure. 5. Severe encephalopathy secondary to above. 6. Worsening anemia. 7. Dehydration. 8. Mildly elevated troponin secondary to above. 9. Transaminitis. 10. History of dementia. 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 12. Malnutrition and low albumin level. 13. Dysphagia. RECOMMENDATIONS: Continue with the supportive care. Code status is DNR and prognosis is very poor. IV fluid is being managed as per renal team. Follow up renal function and recommendation. replace lytes PRN cont Nutritional support as tolerated. Prognosis is very poor. f/u with palliative care rec. Thank you for this referral. We will continue to follow along with you. Problems: CHU SMART MD Feb 19, 2017 11:52
--- NOTE | 2017-02-19 12:04 | CONS ---
Date/Time of Note Date/Time of Note DATE: 02/19/17 TIME: 12:02 Assessment/Plan Assessment/Plan Additional Assessment/Plan Assessment and recommendations; 1. Patient admitted with bilateral pneumonia with CHF. 2. Advanced dementia. 3. Acute renal failure, requiring hemodialysis. 4. Superimposed UTI. 5. Persistent severe hypoxemia. Continue current supportive care. Prognosis appears very poor. Hospice should be considered. Consultation Date/Type/Reason Admit Date/Time Feb 12, 2017 at 13:47 Initial Consult Date 02/19/17 Type of Consultation: Pulmonary 24 HR Interval Summary Free Text/Dictation Patient's condition is tenuous at best. Still requiring 100% nonrebreather for O2 saturation maintenance. General exam; elderly woman, unresponsive, currently in no distress. Exam/Review of Systems Vital Signs Vitals Vital Signs Date Time Temp Pulse Resp B/P Pulse Ox O2 Delivery O2 Flow Rate FiO2 02/19/17 08:05 95 02/19/17 08:02 98.4 32 117/56 91 02/18/17 21:41 Non Rebreather Mask 15.0 02/18/17 15:32 100 Intake and Output 02/18/17 02/18/17 02/19/17 15:00 23:00 07:00 Intake Total 465 ml 1290 ml 1160 ml Output Total 300 ml 400 ml Balance 465 ml 990 ml 760 ml Exam HEENT exam; supple neck, positive JVD. No lymphadenopathy. Midline trachea. Patient is on 100% nonrebreather mask. Chest exam; diminished breath sounds throughout. S1-S2 audible, no murmurs. Abdomen exam; soft, scaphoid. No organomegaly. Bowel sounds are sluggish. Extremity exam; no edema. Patient does have multiple ecchymosis. 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 Results Result Diagram: 02/19/17 0613 02/19/17 0613 Results 24 hrs Laboratory Tests Test 02/18/17 16:13 02/19/17 06:13 02/19/17 11:18 Prothrombin Time 17.3 H Prothrombin Time Ratio 1.4 INR International Normalized Ratio 1.39 Fibrinogen 623.0 H D-Dimer White Blood Count 14.0 H Red Blood Count 2.41 L Hemoglobin 7.3 L Hematocrit 22.3 L Mean Corpuscular Volume 92.5 Mean Corpuscular Hemoglobin 30.3 Mean Corpuscular Hemoglobin Concent 32.7 Red Cell Distribution Width 16.8 H Platelet Count 70 L Mean Platelet Volume 13.1 H Neutrophils % Segmented Neutrophils % (Manual) 49 Band Neutrophils % (Manual) 40 H Lymphocytes % Lymphocytes % (Manual) 9 L Reactive Lymphocytes % (Manual) 1 H Monocytes % Monocytes % (Manual) 1 Eosinophils % Basophils % Nucleated Red Blood Cells % 2 H Neutrophils # Neutrophils # (Manual) 7.6 H Band Neutrophils # 5.6 H Absolute Lymphocytes (Manual) 1.2 Lymphocytes # Reactive Lymphocytes # 0.1 H Monocytes # Absolute Monocytes (Manual) 0.1 L Eosinophils # Basophils # Nucleated Red Blood Cells # Platelet Estimate SIG DECREASED Giant Platelets 1 H Polychromasia 2+ Anisocytosis 1+ Microcytosis 1+ Sodium Level 143 Potassium Level 3.2 L Chloride Level 109 Carbon Dioxide Level 19 L Anion Gap 18 H Blood Urea Nitrogen 81 H Creatinine 3.13 H Glucose Level 305 H Calcium Level 7.4 L Phosphorus Level 4.6 Magnesium Level 2.3 Bedside Glucose 369 H Medications Medications Current Medications Ondansetron HCl (Zofran Inj) 4 mg Q6H PRN IV NAUSEA AND/OR VOMITING; Start at 15:30 Acetaminophen (Tylenol Supp) 650 mg Q6H PRN [place] PAIN LEVEL 1-3 OR FEVER Last administered on 02/18/17 00:19; Admin Dose 650 MG; Start 02/12/17 at 15:30 Bisacodyl (Dulcolax Supp) 10 mg DAILY PRN [place] CONSTIPATION; Start 02/12/17 at 15:30 Citalopram Hydrobromide (Celexa) 40 mg QAM NGT Last administered on 02/19/17 09:46; Admin Dose 40 MG; Start 02/13/17 at 09:00 Epoetin Weston 6000 units 6,000 units TuThSa@17 SC Last administered on 18:53; Admin Dose 6,000 UNITS; Start 02/15/17 at 17:00 Ferric Sodium Gluconate Complex 125 mg/Sodium Chloride 110 ml @ 110 mls/hr Q24H IVPB Last administered on 02/18/17 16:57; Admin Dose 110 MLS/HR; Start 02/15/17 at 16:00; Stop 02/22/17 at 16:59 Piperacillin Sod/ Tazobactam Sod (Zosyn 2.25gm/ 50ml (Pmx)) 50 ml @ 100 mls/hr Q6 IVPB Last administered on 02/19/17 05:56; Admin Dose 100 MLS/HR; Start at 11:30 Methylprednisolone Sodium Succinate 80 mg 80 mg Q8 IV Last administered on 05:58; Admin Dose 80 MG; Start 02/18/17 at 14:00 Sodium Chloride 1,000 ml @ 50 mls/hr Q20H IV Last administered on 02/19/17 05:59; Admin Dose 50 MLS/HR; Start 02/18/17 at 10:00 Pantoprazole 80 mg/Sodium Chloride 100 ml @ 10 mls/hr Q10H IV Last administered on 02/19/17 06:15; Admin Dose 10 MLS/HR; Start 02/18/17 at 17:00 Potassium Chloride/Dextrose (KCl/D5W) 110 ml @ 55 mls/hr ONCE ONCE IVPB Last administered on 02/19/17 11:22; Admin Dose 55 MLS/HR; Start 02/19/17 at 10:30 ; Stop 02/19/17 at 12:29 Diagnostic Test (Pha) (Accu-Chek) 1 ea 02 XX ; Start 02/20/17 at 02:00 Insulin Glargine (Lantus) 8 unit DAILY@20 SC ; Start 02/19/17 at 20:00 Insulin Aspart (Novolog Insulin Pen) NOVOLOG *MODERATE* ALGORITHM Q6 SC Last administered on 02/19/17 11:31; Admin Dose 12 UNIT; Start 02/19/17 at 12:00 Miscellaneous Information 1 ea NOTE XX ; Start 02/19/17 at 10:30 Glucose (Glutose) 15 gm Q15M PRN PO DECREASED GLUCOSE; Start 02/19/17 at 10:30 Glucose (Glutose) 22.5 gm Q15M PRN PO DECREASED GLUCOSE; Start 02/19/17 at 10: 30 Dextrose (D50w Syringe) 25 ml Q15M PRN IV DECREASED GLUCOSE; Start 02/19/17 at 10:30 Dextrose (D50w Syringe) 50 ml Q15M PRN IV DECREASED GLUCOSE; Start 02/19/17 at 10:30 Glucagon (Glucagen) 1 mg Q15M PRN IM DECREASED GLUCOSE; Start 02/19/17 at 10: 30 Glucose (Glutose) 15 gm Q15M PRN BUCCAL DECREASED GLUCOSE; Start 02/19/17 at 10:30 DENNIS LOWE Feb 19, 2017 12:04
--- NOTE | 2017-02-19 13:00 | PN ---
Date/Time of Note Date/Time of Note DATE: 02/19/17 TIME: 12:59 Assessment/Plan VTE Prophylaxis VTE Prophylaxis Intervention: SCD's Lines/Catheters IV Catheter Type (from Nrsg): Saline Lock Urinary Cath still in place: Yes Reason Cath still needed: terminal illness/intractable pain Assessment/Plan Chief Complaint/Hosp Course Subjective 12.19 spoke with at length with and pattern duplicator at bedside 12.20 patient still not easily arousable 12.21 no acute changes in patient. 12.22 low BP and worsening hypoxia overnight 12.23 patient still having low normal o2 sat Objective Physical exam General: Patient is laying in bed, curled, difficult to arouse Mentation: Patient is not alert and oriented 4, Head: Normocephalic atraumatic Eyes: EOMI, pupils reactive to light Neck: Supple, nontender, midline Respiratory: coarse to auscultation bilaterally Cardiovascular: tachycardic, no obvious murmurs Gastrointestinal: non-tender to palpation, bowel sounds heard. Neurological: Moves all extremities spontaneously Skin: No new skin lesions Assessment/Plan Severe sepsis secondary to dehydration and UTI, now also bilat PNA - increased abx to vanc/zosyn due to worsening hypoxia/bp with new PNA seen on CXR -adding fluids -f/u blood cultures Bilateral PNA -new onset -likely 2/2 aspiration given patient's worsening dementia/resp status/ability to protect airway -patient's family states no intubation under any circumstance hypotension -BP more stable after fluids -likely 2/2 sepsis Thrombocytopenia -Dr. Montes consulted, 1 unit platelets given . -DIC? fibrinogen/ddimer ordered, likely 2/2 sepsis -very poor prognosis UTI - UA+ for infection - Most likely secondary to dehydration - vanc/zosyn hypernatremia -on fluids -nephro recs appreciated PANCHO on CKD - Patient baseline Cr 2.2 and renal failure is secondary to dehydration and natural progression of comorbid conditions - Dr. Reed on board and appreciated consultation. Continue with HD as tolerated and monitoring electrolytes closely. Watch sodium - Discussed with son and patient on tolerating well but would still like to continue with HD as patient can tolerate. Anemia -iron deficient -?GI bleed with dark stool, fecal occult ordered -PPI drip -GI consulted, recs appreciated Dehydration - volume overloaded now, peg tube free water flushes with HD - need IV fluids for BP tachycardia -cardiology recs appreciated, no BB can be given 2/2 BP Severe hypernatremia- - on free water flushes Hyperkalemia- -monitor Transaminitis- resolved - secondary to dehydration Leukocytosis - on IV antibiotics. continue monitoring Elevated troponin - most likely secondary to elevated Cr - EKG shows sinus tachycardia -cardiology recs appreciated Dementia - continue medications -severe, root cause of all issues L cephalic vein thrombosis - keep limb elevated with warm compress - no anticoagulation at this time per family Disposition - spoke at length with and pattern duplicator, will also get palliative care on board - discussed need of PEG/HD to SNF vs true hospice, Dr. Elizabeth spoke to patient and son. - NG tube for tube feeds for now - patient is hospice appropriate given imminent timing for intubation given inability to protect airway and severe chronic dementia -no intubation under any circumstance per family Problems: Exam/Review of Systems Vital Signs Vitals Vital Signs Date Time Temp Pulse Resp B/P Pulse Ox O2 Delivery O2 Flow Rate FiO2 02/19/17 12:05 100 02/19/17 12:04 98.4 36 118/56 94 02/19/17 12:00 Non Rebreather 15.0 02/18/17 15:32 100 Intake and Output 02/18/17 02/18/17 02/19/17 15:00 23:00 07:00 Intake Total 465 ml 1290 ml 1160 ml Output Total 300 ml 400 ml Balance 465 ml 990 ml 760 ml Results Result Diagram: 02/19/17 0613 02/19/17 0613 Results 24 hrs Laboratory Tests Test 02/18/17 16:13 02/19/17 06:13 02/19/17 11:18 Prothrombin Time 17.3 H Prothrombin Time Ratio 1.4 INR International Normalized Ratio 1.39 Fibrinogen 623.0 H D-Dimer White Blood Count 14.0 H Red Blood Count 2.41 L Hemoglobin 7.3 L Hematocrit 22.3 L Mean Corpuscular Volume 92.5 Mean Corpuscular Hemoglobin 30.3 Mean Corpuscular Hemoglobin Concent 32.7 Red Cell Distribution Width 16.8 H Platelet Count 70 L Mean Platelet Volume 13.1 H Neutrophils % Segmented Neutrophils % (Manual) 49 Band Neutrophils % (Manual) 40 H Lymphocytes % Lymphocytes % (Manual) 9 L Reactive Lymphocytes % (Manual) 1 H Monocytes % Monocytes % (Manual) 1 Eosinophils % Basophils % Nucleated Red Blood Cells % 2 H Neutrophils # Neutrophils # (Manual) 7.6 H Band Neutrophils # 5.6 H Absolute Lymphocytes (Manual) 1.2 Lymphocytes # Reactive Lymphocytes # 0.1 H Monocytes # Absolute Monocytes (Manual) 0.1 L Eosinophils # Basophils # Nucleated Red Blood Cells # Platelet Estimate SIG DECREASED Giant Platelets 1 H Polychromasia 2+ Anisocytosis 1+ Microcytosis 1+ Sodium Level 143 Potassium Level 3.2 L Chloride Level 109 Carbon Dioxide Level 19 L Anion Gap 18 H Blood Urea Nitrogen 81 H Creatinine 3.13 H Glucose Level 305 H Calcium Level 7.4 L Phosphorus Level 4.6 Magnesium Level 2.3 Bedside Glucose 369 H Medications Medications Current Medications Ondansetron HCl (Zofran Inj) 4 mg Q6H PRN IV NAUSEA AND/OR VOMITING; Start at 15:30 Acetaminophen (Tylenol Supp) 650 mg Q6H PRN [place] PAIN LEVEL 1-3 OR FEVER Last administered on 02/18/17 00:19; Admin Dose 650 MG; Start 02/12/17 at 15:30 Bisacodyl (Dulcolax Supp) 10 mg DAILY PRN [place] CONSTIPATION; Start 02/12/17 at 15:30 Citalopram Hydrobromide (Celexa) 40 mg QAM NGT Last administered on 02/19/17 09:46; Admin Dose 40 MG; Start 02/13/17 at 09:00 Epoetin Weston 6000 units 6,000 units TuThSa@17 SC Last administered on 18:53; Admin Dose 6,000 UNITS; Start 02/15/17 at 17:00 Ferric Sodium Gluconate Complex 125 mg/Sodium Chloride 110 ml @ 110 mls/hr Q24H IVPB Last administered on 02/18/17 16:57; Admin Dose 110 MLS/HR; Start 02/15/17 at 16:00; Stop 02/22/17 at 16:59 Piperacillin Sod/ Tazobactam Sod (Zosyn 2.25gm/ 50ml (Pmx)) 50 ml @ 100 mls/hr Q6 IVPB Last administered on 02/19/17 05:56; Admin Dose 100 MLS/HR; Start at 11:30 Methylprednisolone Sodium Succinate 80 mg 80 mg Q8 IV Last administered on 05:58; Admin Dose 80 MG; Start 02/18/17 at 14:00 Sodium Chloride 1,000 ml @ 50 mls/hr Q20H IV Last administered on 02/19/17 05:59; Admin Dose 50 MLS/HR; Start 02/18/17 at 10:00 Pantoprazole/ Sodium Chloride (Protonix Iv/NS) 100 ml @ 10 mls/hr Q10H IV Last administered on 02/19/17 06:15; Admin Dose 10 MLS/HR; Start 02/18/17 at 17:00 Diagnostic Test (Pha) (Accu-Chek) 1 ea 02 XX ; Start 02/20/17 at 02:00 Insulin Glargine (Lantus) 8 unit DAILY@20 SC ; Start 02/19/17 at 20:00 Insulin Aspart (Novolog Insulin Pen) NOVOLOG *MODERATE* ALGORITHM Q6 SC Last administered on 02/19/17 11:31; Admin Dose 12 UNIT; Start 02/19/17 at 12:00 Miscellaneous Information 1 ea NOTE XX ; Start 02/19/17 at 10:30 Glucose (Glutose) 15 gm Q15M PRN PO DECREASED GLUCOSE; Start 02/19/17 at 10:30 Glucose (Glutose) 22.5 gm Q15M PRN PO DECREASED GLUCOSE; Start 02/19/17 at 10: 30 Dextrose (D50w Syringe) 25 ml Q15M PRN IV DECREASED GLUCOSE; Start 02/19/17 at 10:30 Dextrose (D50w Syringe) 50 ml Q15M PRN IV DECREASED GLUCOSE; Start 02/19/17 at 10:30 Glucagon (Glucagen) 1 mg Q15M PRN IM DECREASED GLUCOSE; Start 02/19/17 at 10: 30 Glucose (Glutose) 15 gm Q15M PRN BUCCAL DECREASED GLUCOSE; Start 02/19/17 at 10:30 YOKASTA TONG Feb 19, 2017 13:00
[2017-02-19] MEDS: SOD FERRIC GLUC COMPLX 125 MG in SOD CHLORIDE 0.9% 100 ML IVPB SCH (15:24)
[2017-02-19] MEDS: EPOETIN 3000 UNITS/1 ML INJ (ESRD) SC SCH (17:43)
[2017-02-19] MEDS ORDERED: INSULIN GLARGINE [LANtus] 3 ML PEN SC SCH (20:00)
[2017-02-20] VITALS (25 sets, daily range): BP systolic 122–167; BP diastolic 66–82; PULSE 89–195; RESP 22–53
[2017-02-20] MEDS ORDERED: ACCU-CHEK XX SCH (02:00)
[2017-02-20] MEDS ORDERED: ADENOSINE 6 MG INJ IV ONE (05:00)
[2017-02-20] MEDS ORDERED: ADENOSINE 2 ML ONE (05:00)
[2017-02-20] MEDS ORDERED: AMIODARONE 150MG/D5W BOLUS 100 ML ONE (05:09)
[2017-02-20] MEDS ORDERED: METOPROLOL 5 MG INJ ONE (05:29)
[2017-02-20] MEDS ORDERED: DILTIAZEM 25 MG INJ IV ONE (06:00)
[2017-02-20] MEDS ORDERED: AMIODARONE 900 MG in DEXTROSE 5% 482 ML IV SCH (06:00)
[2017-02-20] MEDS ORDERED: AMIODARONE 150MG/D5W BOLUS 100 ML IV ONE (06:00)
[2017-02-20] MEDS: INSULIN ASPART [NOVOLOG] 3 ML PEN SC SCH ×3 (06:00→12:00)
[2017-02-20 06:02] LABS: ABNORMAL IP MESSAGE 1; HEMATOCRIT 27.2 % (37.0-47.0); HEMOGLOBIN 9.1 g/dl (12.0-16.0); MEAN CORPUSCULAR HEMOGLOBIN 30.6 pg (29.0-33.0); MEAN CORPUSCULAR HGB CONC 33.5 g/dl (32.0-37.0); MEAN CORPUSCULAR VOLUME 91.6 fl (82.0-101.0); NUCLEATED RED BLOOD CELLS% 0.6 /100WBC (0.0-0.0); PLATELET COUNT 125 10^3/UL (140-415); RED BLOOD COUNT 2.97 10^6/ul (4.20-5.40); RED CELL DISTRIBUTION WIDTH 17.3 % (11.5-14.5)
[2017-02-20] MEDS: METHYLPREDNISOLONE 125 MG INJ IV SCH ×2 (06:03→14:00)
[2017-02-20] MEDS: PIPER-TAZO 2.25 GM (PMX) 50 ML IVPB SCH ×2 (06:03→12:00)
[2017-02-20 06:20] LABS: CREATININE 3.31 mg/dl (0.44-1.00); MAGNESIUM 2.2 mg/dl (1.7-2.5); PHOSPHORUS 4.8 mg/dl (2.5-4.9); POTASSIUM 3.1 mmol/L (3.5-5.1)
[2017-02-20 07:03] LABS: POSITIVE DIFF @See below
[2017-02-20] MEDS: ALBUTEROL/IPRATROPIUM (NEB) 3 ML AMP HHN SCH ×2 (07:25→13:21)
[2017-02-20 08:19] LABS: Allen Test ACCEPTAB; Arterial Base Excess -7.8 mmol/L (-3.0-3); Arterial COHb 0.3 % (0.0-3.0); Arterial Fraction of Oxyhgb 84.6 % (93.0-99.0); Arterial MetHb 0.1 % (0.0-1.5); Arterial Total Hemglobin 9.9 g/dl (12.0-18.0); Blood Gas IEPAP 15/5; Blood Gas PS 10; MODE BIPAP - S/T
[2017-02-20 08:19] LABS: AADO2 Arterial 640.2 mmHg (7.0-24.0); Allen Test ACCEPTAB; Arterial Base Excess -5.7 mmol/L (-3.0-3); Arterial COHb 0.3 % (0.0-3.0); Arterial Fraction of Oxyhgb 82.8 % (93.0-99.0); Arterial HCO3 17.3 mmol/L (22.0-26.0); Arterial MetHb 0.1 % (0.0-1.5); Arterial Total Hemglobin 8.4 g/dl (12.0-18.0); MODE MASK - NRB
--- NOTE | 2017-02-20 08:44 | PN ---
Date/Time of Note Date/Time of Note DATE: 02/20/17 TIME: 08:38 Assessment/Plan VTE Prophylaxis VTE Prophylaxis Intervention: SCD's Lines/Catheters IV Catheter Type (from Nrs): Saline Lock Urinary Cath still in place: Yes Reason Cath still needed: terminal illness/intractable pain, other (indicate) Assessment/Plan Chief Complaint/Hosp Course Assessment/Plan Anemia Continue PPI tx Severe sepsis secondary to dehydration and UTI UTI- on ABX Bilat PNA- on ABX PANCHO on CKD Dehydration Severe hypernatremia Hyperkalemia Transaminitis R/T dehydration Leukocytosis Elevated troponin Dementia Plan: Continue PPI drip Continue to monitor labs H/H, transfuse less than 7.0 Will hold off on any invasive procedures Poor prognosis, appropriate for hospice. Patient seen in collaboration with Dr. 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 she is a DNR, Again patient is not stable for any endoscopies and currently not warranted as HGB is increasing, and there are no overt signs of GI bleed Pt with very poor prognosis, continue to monitor H/H. PHYSICAL EXAMINATION: GENERAL: ill appearing, non-verbal SKIN: No lesions, no stigmata chronic liver disease, no evidence of bleeding diathesis LYMPHATIC: No palpable lymphadenopathy. HEAD: Normocephalic, atraumatic, no tenderness. EYES: No discharge. EARS/NOSE AND THROAT: Ears normal, nose normal, oropharynx normal, oral membranes well hydrated without lesions. NECK: Supple, no masses, thyroid normal. CHEST: Inspection within normal limits. CARDIOVASCULAR: Heart:, Hypotension RESPIRATORY: Rales, diminished GASTROINTESTINAL AND LIVER: Abdomen: Soft, non tenderness, non-distended, no hernias, no masses, no organomegaly, no ascites, no guarding, no rebound tenderness, normoactive bowel sounds. Rectal: Deferred. GENITOURINARY: Female genitalia within normal limits, catheter in place EXTREMITIES: anasarca Problems: Exam/Review of Systems Vital Signs Vitals Vital Signs Date Time Temp Pulse Resp B/P Pulse Ox O2 Delivery O2 Flow Rate FiO2 02/20/17 08:14 89 02/20/17 07:45 98.4 53 122/66 96 02/20/17 07:25 100 02/19/17 16:04 Non Rebreather 15.0 Intake and Output 02/19/17 02/19/17 02/20/17 15:00 23:00 07:00 Intake Total 50 ml 1120 ml 1720 ml Output Total 300 ml 350 ml Balance 50 ml 820 ml 1370 ml Results Result Diagram: 02/20/17 0520 02/20/17 0520 Results 24 hrs Laboratory Tests Test 02/19/17 11:18 02/19/17 17:48 02/19/17 18:04 02/19/17 20:44 Bedside Glucose 369 H 276 H 257 H Blood Gas Specimen Source Blood arterial Arterial Blood Date Drawn 02/19/2017 6:25:00 PM Arterial Blood pH (Temp corrected) 7.450 Arterial Blood pCO2 (Temp correct) 25.5 L Arterial Blood pO2 (Temp corrected) 47.3 *L Arterial Blood HCO3 17.3 L Arterial Blood Base Excess -5.7 L Arterial Blood Oxygen Saturation 83.1 L Wilman Test ACCEPTAB Arterial Blood Gas Puncture Site Left Radial Arterial Blood Carboxyhemoglobin 0.3 Arterial Blood Methemoglobin 0.1 Blood Gas A-a O2 Differential 640.2 H Oxyhemoglobin Percent 82.8 L Total Hemoglobin 8.4 L Blood Gas Temperature 37.0 Blood Gas Modality MASK - NRB FiO2 100.0 Blood Gas Critical Value Read Back SANA ZENDEJAS Blood Gas Notified Whom LARON Blood Gas Notified Time 02/19/2017 6:36:00 PM Test 02/19/17 23:53 02/20/17 05:04 02/20/17 05:20 02/20/17 06:45 Bedside Glucose 141 119 Blood Gas Specimen Source Blood arterial Arterial Blood Date Drawn 02/20/2017 5:15:25 AM Arterial Blood pH (Temp corrected) 7.384 Arterial Blood pCO2 (Temp correct) 27.5 L Arterial Blood pO2 (Temp corrected) 51.5 *L Arterial Blood HCO3 16.0 L Arterial Blood Base Excess -7.8 L Arterial Blood Oxygen Saturation 84.9 L Wilman Test ACCEPTAB Arterial Blood Gas Puncture Site Right Radial Arterial Blood Carboxyhemoglobin 0.3 Arterial Blood Methemoglobin 0.1 Blood Gas A-a O2 Differential 634.0 H Oxyhemoglobin Percent 84.6 L Total Hemoglobin 9.9 L Blood Gas Temperature 37.0 Blood Gas Respiration Rate 18.0 Blood Gas Actual Respiration Rate 48 Blood Gas Modality BIPAP - S/T FiO2 100.0 Blood Gas Pressure Support 10 Blood Gas IPAP/EPAP Ratio 15/ Blood Gas Critical Value Read Back Marshal RUIZ MD Blood Gas Notified Whom RTR Blood Gas Notified Time 02/20/2017 5:27:02 AM White Blood Count 23.0 #H Red Blood Count 2.97 #L Hemoglobin 9.1 #L Hematocrit 27.2 #L Mean Corpuscular Volume 91.6 Mean Corpuscular Hemoglobin 30.6 Mean Corpuscular Hemoglobin Concent 33.5 Red Cell Distribution Width 17.3 H Platelet Count 125 #L Mean Platelet Volume 13.0 H Neutrophils % Lymphocytes % Monocytes % Eosinophils % Basophils % Nucleated Red Blood Cells % 0.6 H Neutrophils # Lymphocytes # Monocytes # Eosinophils # Basophils # Nucleated Red Blood Cells # Sodium Level 150 H Potassium Level 3.1 L Chloride Level 114 H Carbon Dioxide Level 16 L Anion Gap 23 H Blood Urea Nitrogen 95 H Creatinine 3.31 H Glucose Level 301 H Calcium Level 8.0 L Phosphorus Level 4.8 Magnesium Level 2.2 Medications Medications Current Medications Ondansetron HCl (Zofran Inj) 4 mg Q6H PRN IV NAUSEA AND/OR VOMITING; Start at 15:30 Acetaminophen (Tylenol Supp) 650 mg Q6H PRN [place] PAIN LEVEL 1-3 OR FEVER Last administered on 02/18/17 00:19; Admin Dose 650 MG; Start 02/12/17 at 15:30 Bisacodyl (Dulcolax Supp) 10 mg DAILY PRN [place] CONSTIPATION; Start 02/12/17 at 15:30 Citalopram Hydrobromide (Celexa) 40 mg QAM NGT Last administered on 02/19/17 09:46; Admin Dose 40 MG; Start 02/13/17 at 09:00 Epoetin Weston 6000 units 6,000 units TuThSa@17 SC Last administered on 17:43; Admin Dose 6,000 UNITS; Start 02/15/17 at 17:00 Ferric Sodium Gluconate Complex 125 mg/Sodium Chloride 110 ml @ 110 mls/hr Q24H IVPB Last administered on 02/19/17 15:24; Admin Dose 110 MLS/HR; Start 02/15/17 at 16:00; Stop 02/22/17 at 16:59 Piperacillin Sod/ Tazobactam Sod (Zosyn 2.25gm/ 50ml (Pmx)) 50 ml @ 100 mls/hr Q6 IVPB Last administered on 02/20/17 06:03; Admin Dose 100 MLS/HR; Start at 11:30 Methylprednisolone Sodium Succinate 80 mg 80 mg Q8 IV Last administered on 06:03; Admin Dose 80 MG; Start 02/18/17 at 14:00 Sodium Chloride 1,000 ml @ 50 mls/hr Q20H IV Last administered on 02/19/17 23:20; Admin Dose 50 MLS/HR; Start 02/18/17 at 10:00 Pantoprazole/ Sodium Chloride (Protonix Iv/NS) 100 ml @ 10 mls/hr Q10H IV Last administered on 02/19/17 23:22; Admin Dose 10 MLS/HR; Start 02/18/17 at 17:00 Diagnostic Test (Pha) (Accu-Chek) 1 ea 02 XX Last administered on 02/20/17 02 :00; Admin Dose 1 EA; Start 02/20/17 at 02:00 Insulin Glargine (Lantus) 8 unit DAILY@20 SC Last administered on 02/19/17 20 :51; Admin Dose 8 UNIT; Start 02/19/17 at 20:00 Insulin Aspart (Novolog Insulin Pen) NOVOLOG *MODERATE* ALGORITHM Q6 SC Last administered on 02/19/17 18:27; Admin Dose 8 UNIT; Start 02/19/17 at 12:00 Miscellaneous Information 1 ea NOTE XX ; Start 02/19/17 at 10:30 Glucose (Glutose) 15 gm Q15M PRN PO DECREASED GLUCOSE; Start 02/19/17 at 10:30 Glucose (Glutose) 22.5 gm Q15M PRN PO DECREASED GLUCOSE; Start 02/19/17 at 10: 30 Dextrose (D50w Syringe) 25 ml Q15M PRN IV DECREASED GLUCOSE; Start 02/19/17 at 10:30 Dextrose (D50w Syringe) 50 ml Q15M PRN IV DECREASED GLUCOSE; Start 02/19/17 at 10:30 Glucagon (Glucagen) 1 mg Q15M PRN IM DECREASED GLUCOSE; Start 02/19/17 at 10: 30 Glucose 15 gm 15 gm Q15M PRN BUCCAL DECREASED GLUCOSE; Start 02/19/17 at 10:30 Amiodarone HCl/ Dextrose (Cordarone Iv/ D5W) 500 ml @ 0 mls/hr Q0M IV ; Start 02/20/17 at 06:00; Stop 02/21/17 at 05:59 LEI MONTES Feb 20, 2017 08:44
[2017-02-20] MEDS: BALSAM PERU/CASTOR OIL 60 GM TUBE TOP SCH (09:00)
--- NOTE | 2017-02-20 09:00 | CONS ---
Date/Time of Note Date/Time of Note DATE: 02/20/17 TIME: 08:54 Consultation Date/Type/Reason Admit Date/Time Feb 12, 2017 at 13:47 Initial Consult Date 02/19/17 Type of Consultation: Pulmonary 24 HR Interval Summary Free Text/Dictation Dictating a postdated progress note for date February 19 This is a family conference done with patient's sister and aunt. Reviewed patient's medical records with her sister who is the legal guardian for any ongoing decision makers on patient's behalf understanding is clear that her sister is extremely ill secondary to alcoholic liver disease her hopes acceptable quality of life were addressed but not defined secondary to daughter first reaction was that she did not understand the severity of her sister's clinical condition for fear worries concerns that she may . Strengths are that she has first-degree family members who are close and aware of severity of patient's underlying medical condition. Medication preferences is always one-to -one with his family. Please refer to my prior physical examination patient's estimated prognosis if she does not improve significantly is less than 1 month goals of care were discussed issue of CODE STATUS was brought up but it was my opinion that patient's sister was not emotionally able to address that question at the time because of both her age the severity of her sisters underlying medical problems and trauma having to make a decision on her behalf I recommended to defer to bioethics to be supportive. And possibly to help patient to develop some stable emotional psychological pathway to making very difficult decisions if her sister does not significantly improve pain and symptom management was addressed with patient at the beginning of her initial hospitalization and she has remained stable no ethical or legal concerns that are of concern at this time. Patient has been referred to bioethics for discussion primarily help sister with the rigors of possibly having to make a very difficult decision patient's ongoing level of care and her CODE STATUS. Exam/Review of Systems Vital Signs Vitals Vital Signs Date Time Temp Pulse Resp B/P Pulse Ox O2 Delivery O2 Flow Rate FiO2 02/20/17 08:14 89 02/20/17 07:45 98.4 53 122/66 96 02/20/17 07:25 100 02/19/17 16:04 Non Rebreather 15.0 Intake and Output 02/19/17 02/19/17 02/20/17 15:00 23:00 07:00 Intake Total 50 ml 1120 ml 1720 ml Output Total 300 ml 350 ml Balance 50 ml 820 ml 1370 ml Results Result Diagram: 02/20/17 0520 02/20/17 0520 Results 24 hrs Laboratory Tests Test 02/19/17 11:18 02/19/17 17:48 02/19/17 18:04 02/19/17 20:44 Bedside Glucose 369 H 276 H 257 H Blood Gas Specimen Source Blood arterial Arterial Blood Date Drawn 02/19/2017 6:25:00 PM Arterial Blood pH (Temp corrected) 7.450 Arterial Blood pCO2 (Temp correct) 25.5 L Arterial Blood pO2 (Temp corrected) 47.3 *L Arterial Blood HCO3 17.3 L Arterial Blood Base Excess -5.7 L Arterial Blood Oxygen Saturation 83.1 L Wilman Test ACCEPTAB Arterial Blood Gas Puncture Site Left Radial Arterial Blood Carboxyhemoglobin 0.3 Arterial Blood Methemoglobin 0.1 Blood Gas A-a O2 Differential 640.2 H Oxyhemoglobin Percent 82.8 L Total Hemoglobin 8.4 L Blood Gas Temperature 37.0 Blood Gas Modality MASK - NRB FiO2 100.0 Blood Gas Critical Value Read Back SANA ZENDEJAS Blood Gas Notified Whom LARON Blood Gas Notified Time 02/19/2017 6:36:00 PM Test 02/19/17 23:53 02/20/17 05:04 02/20/17 05:20 02/20/17 06:45 Bedside Glucose 141 119 Blood Gas Specimen Source Blood arterial Arterial Blood Date Drawn 02/20/2017 5:15:25 AM Arterial Blood pH (Temp corrected) 7.384 Arterial Blood pCO2 (Temp correct) 27.5 L Arterial Blood pO2 (Temp corrected) 51.5 *L Arterial Blood HCO3 16.0 L Arterial Blood Base Excess -7.8 L Arterial Blood Oxygen Saturation 84.9 L Wilman Test ACCEPTAB Arterial Blood Gas Puncture Site Right Radial Arterial Blood Carboxyhemoglobin 0.3 Arterial Blood Methemoglobin 0.1 Blood Gas A-a O2 Differential 634.0 H Oxyhemoglobin Percent 84.6 L Total Hemoglobin 9.9 L Blood Gas Temperature 37.0 Blood Gas Respiration Rate 18.0 Blood Gas Actual Respiration Rate 48 Blood Gas Modality BIPAP - S/T FiO2 100.0 Blood Gas Pressure Support 10 Blood Gas IPAP/EPAP Ratio 15/5 Blood Gas Critical Value Read Back Marshal RUIZ MD Blood Gas Notified Whom RTR Blood Gas Notified Time 02/20/2017 5:27:02 AM White Blood Count 23.0 #H Red Blood Count 2.97 #L Hemoglobin 9.1 #L Hematocrit 27.2 #L Mean Corpuscular Volume 91.6 Mean Corpuscular Hemoglobin 30.6 Mean Corpuscular Hemoglobin Concent 33.5 Red Cell Distribution Width 17.3 H Platelet Count 125 #L Mean Platelet Volume 13.0 H Neutrophils % Lymphocytes % Monocytes % Eosinophils % Basophils % Nucleated Red Blood Cells % 0.6 H Neutrophils # Lymphocytes # Monocytes # Eosinophils # Basophils # Nucleated Red Blood Cells # Sodium Level 150 H Potassium Level 3.1 L Chloride Level 114 H Carbon Dioxide Level 16 L Anion Gap 23 H Blood Urea Nitrogen 95 H Creatinine 3.31 H Glucose Level 301 H Calcium Level 8.0 L Phosphorus Level 4.8 Magnesium Level 2.2 Medications Medications Current Medications Ondansetron HCl (Zofran Inj) 4 mg Q6H PRN IV NAUSEA AND/OR VOMITING; Start at 15:30 Acetaminophen (Tylenol Supp) 650 mg Q6H PRN [place] PAIN LEVEL 1-3 OR FEVER Last administered on 02/18/17 00:19; Admin Dose 650 MG; Start 02/12/17 at 15:30 Bisacodyl (Dulcolax Supp) 10 mg DAILY PRN [place] CONSTIPATION; Start 02/12/17 at 15:30 Citalopram Hydrobromide (Celexa) 40 mg QAM NGT Last administered on 02/19/17 09:46; Admin Dose 40 MG; Start 02/13/17 at 09:00 Epoetin Weston 6000 units 6,000 units TuThSa@17 SC Last administered on 17:43; Admin Dose 6,000 UNITS; Start 02/15/17 at 17:00 Ferric Sodium Gluconate Complex 125 mg/Sodium Chloride 110 ml @ 110 mls/hr Q24H IVPB Last administered on 02/19/17 15:24; Admin Dose 110 MLS/HR; Start 02/15/17 at 16:00; Stop 02/22/17 at 16:59 Piperacillin Sod/ Tazobactam Sod (Zosyn 2.25gm/ 50ml (Pmx)) 50 ml @ 100 mls/hr Q6 IVPB Last administered on 02/20/17 06:03; Admin Dose 100 MLS/HR; Start at 11:30 Methylprednisolone Sodium Succinate 80 mg 80 mg Q8 IV Last administered on 06:03; Admin Dose 80 MG; Start 02/18/17 at 14:00 Sodium Chloride 1,000 ml @ 50 mls/hr Q20H IV Last administered on 02/19/17 23:20; Admin Dose 50 MLS/HR; Start 02/18/17 at 10:00 Pantoprazole/ Sodium Chloride (Protonix Iv/NS) 100 ml @ 10 mls/hr Q10H IV Last administered on 02/19/17 23:22; Admin Dose 10 MLS/HR; Start 02/18/17 at 17:00 Diagnostic Test (Pha) (Accu-Chek) 1 ea 02 XX Last administered on 02/20/17 02 :00; Admin Dose 1 EA; Start 02/20/17 at 02:00 Insulin Glargine (Lantus) 8 unit DAILY@20 SC Last administered on 02/19/17 20 :51; Admin Dose 8 UNIT; Start 02/19/17 at 20:00 Insulin Aspart (Novolog Insulin Pen) NOVOLOG *MODERATE* ALGORITHM Q6 SC Last administered on 02/19/17 18:27; Admin Dose 8 UNIT; Start 02/19/17 at 12:00 Miscellaneous Information 1 ea NOTE XX ; Start 02/19/17 at 10:30 Glucose (Glutose) 15 gm Q15M PRN PO DECREASED GLUCOSE; Start 02/19/17 at 10:30 Glucose (Glutose) 22.5 gm Q15M PRN PO DECREASED GLUCOSE; Start 02/19/17 at 10: 30 Dextrose (D50w Syringe) 25 ml Q15M PRN IV DECREASED GLUCOSE; Start 02/19/17 at 10:30 Dextrose (D50w Syringe) 50 ml Q15M PRN IV DECREASED GLUCOSE; Start 02/19/17 at 10:30 Glucagon (Glucagen) 1 mg Q15M PRN IM DECREASED GLUCOSE; Start 02/19/17 at 10: 30 Glucose 15 gm 15 gm Q15M PRN BUCCAL DECREASED GLUCOSE; Start 02/19/17 at 10:30 Amiodarone HCl/ Dextrose (Cordarone Iv/ D5W) 500 ml @ 0 mls/hr Q0M IV ; Start 02/20/17 at 06:00; Stop 02/21/17 at 05:59 TOMASZ GARCIA Feb 20, 2017 09:00
--- NOTE | 2017-02-20 09:03 | CONS ---
Date/Time of Note Date/Time of Note DATE: 02/20/17 TIME: 09:00 Assessment/Plan Assessment/Plan Additional Assessment/Plan Alcoholic liver disease Continue moderate encephalopathy proving Consider holding off on bioethics consultation Consultation Date/Type/Reason Admit Date/Time Feb 12, 2017 at 13:47 Initial Consult Date 02/19/17 Type of Consultation: Palliative care 24 HR Interval Summary Free Text/Dictation Patient is significantly improved today and is not combative not agitated but is making sense with her questions Exam/Review of Systems Vital Signs Vitals Vital Signs Date Time Temp Pulse Resp B/P Pulse Ox O2 Delivery O2 Flow Rate FiO2 02/20/17 08:14 89 02/20/17 07:45 98.4 53 122/66 96 02/20/17 07:25 100 02/19/17 16:04 Non Rebreather 15.0 Intake and Output 02/19/17 02/19/17 02/20/17 15:00 23:00 07:00 Intake Total 50 ml 1120 ml 1720 ml Output Total 300 ml 350 ml Balance 50 ml 820 ml 1370 ml Exam Constitutional: alert, oriented, other (Total body jaundice) Respiratory: clear to auscultation, normal air movement, No congested cough, No crackles/rales, No diminished breath sounds, No intercostal retraction, No labored breathing, No other, No respirations, No tactile fremitus, No wheezing Cardiovascular: nl pulses, regular rate and rhythm, No S3, No S4, No bruits, No diastolic murmur, No edema, No gallop, No irregular rhythm, No jugular venous distention (JVD), No murmurs/extra sounds, No other, No rub, No systolic murmur Results Result Diagram: 02/20/17 0520 02/20/17 0520 Results 24 hrs Laboratory Tests Test 02/19/17 11:18 02/19/17 17:48 02/19/17 18:04 02/19/17 20:44 Bedside Glucose 369 H 276 H 257 H Blood Gas Specimen Source Blood arterial Arterial Blood Date Drawn 02/19/2017 6:25:00 PM Arterial Blood pH (Temp corrected) 7.450 Arterial Blood pCO2 (Temp correct) 25.5 L Arterial Blood pO2 (Temp corrected) 47.3 *L Arterial Blood HCO3 17.3 L Arterial Blood Base Excess -5.7 L Arterial Blood Oxygen Saturation 83.1 L Wilman Test ACCEPTAB Arterial Blood Gas Puncture Site Left Radial Arterial Blood Carboxyhemoglobin 0.3 Arterial Blood Methemoglobin 0.1 Blood Gas A-a O2 Differential 640.2 H Oxyhemoglobin Percent 82.8 L Total Hemoglobin 8.4 L Blood Gas Temperature 37.0 Blood Gas Modality MASK - NRB FiO2 100.0 Blood Gas Critical Value Read Back SANA ZENDEJAS Blood Gas Notified Whom LARON Blood Gas Notified Time 02/19/2017 6:36:00 PM Test 02/19/17 23:53 02/20/17 05:04 02/20/17 05:20 02/20/17 06:45 Bedside Glucose 141 119 Blood Gas Specimen Source Blood arterial Arterial Blood Date Drawn 02/20/2017 5:15:25 AM Arterial Blood pH (Temp corrected) 7.384 Arterial Blood pCO2 (Temp correct) 27.5 L Arterial Blood pO2 (Temp corrected) 51.5 *L Arterial Blood HCO3 16.0 L Arterial Blood Base Excess -7.8 L Arterial Blood Oxygen Saturation 84.9 L Wilman Test ACCEPTAB Arterial Blood Gas Puncture Site Right Radial Arterial Blood Carboxyhemoglobin 0.3 Arterial Blood Methemoglobin 0.1 Blood Gas A-a O2 Differential 634.0 H Oxyhemoglobin Percent 84.6 L Total Hemoglobin 9.9 L Blood Gas Temperature 37.0 Blood Gas Respiration Rate 18.0 Blood Gas Actual Respiration Rate 48 Blood Gas Modality BIPAP - S/T FiO2 100.0 Blood Gas Pressure Support 10 Blood Gas IPAP/EPAP Ratio 15/5 Blood Gas Critical Value Read Back Marshal RUIZ MD Blood Gas Notified Whom RTR Blood Gas Notified Time 02/20/2017 5:27:02 AM White Blood Count 23.0 #H Red Blood Count 2.97 #L Hemoglobin 9.1 #L Hematocrit 27.2 #L Mean Corpuscular Volume 91.6 Mean Corpuscular Hemoglobin 30.6 Mean Corpuscular Hemoglobin Concent 33.5 Red Cell Distribution Width 17.3 H Platelet Count 125 #L Mean Platelet Volume 13.0 H Neutrophils % Lymphocytes % Monocytes % Eosinophils % Basophils % Nucleated Red Blood Cells % 0.6 H Neutrophils # Lymphocytes # Monocytes # Eosinophils # Basophils # Nucleated Red Blood Cells # Sodium Level 150 H Potassium Level 3.1 L Chloride Level 114 H Carbon Dioxide Level 16 L Anion Gap 23 H Blood Urea Nitrogen 95 H Creatinine 3.31 H Glucose Level 301 H Calcium Level 8.0 L Phosphorus Level 4.8 Magnesium Level 2.2 Medications Medications Current Medications Ondansetron HCl (Zofran Inj) 4 mg Q6H PRN IV NAUSEA AND/OR VOMITING; Start at 15:30 Acetaminophen (Tylenol Supp) 650 mg Q6H PRN [place] PAIN LEVEL 1-3 OR FEVER Last administered on 02/18/17 00:19; Admin Dose 650 MG; Start 02/12/17 at 15:30 Bisacodyl (Dulcolax Supp) 10 mg DAILY PRN [place] CONSTIPATION; Start 02/12/17 at 15:30 Citalopram Hydrobromide (Celexa) 40 mg QAM NGT Last administered on 02/19/17 09:46; Admin Dose 40 MG; Start 02/13/17 at 09:00 Epoetin Weston 6000 units 6,000 units TuThSa@17 SC Last administered on 17:43; Admin Dose 6,000 UNITS; Start 02/15/17 at 17:00 Ferric Sodium Gluconate Complex 125 mg/Sodium Chloride 110 ml @ 110 mls/hr Q24H IVPB Last administered on 02/19/17 15:24; Admin Dose 110 MLS/HR; Start 02/15/17 at 16:00; Stop 02/22/17 at 16:59 Piperacillin Sod/ Tazobactam Sod (Zosyn 2.25gm/ 50ml (Pmx)) 50 ml @ 100 mls/hr Q6 IVPB Last administered on 02/20/17 06:03; Admin Dose 100 MLS/HR; Start at 11:30 Methylprednisolone Sodium Succinate 80 mg 80 mg Q8 IV Last administered on 06:03; Admin Dose 80 MG; Start 02/18/17 at 14:00 Sodium Chloride 1,000 ml @ 50 mls/hr Q20H IV Last administered on 02/19/17 23:20; Admin Dose 50 MLS/HR; Start 02/18/17 at 10:00 Pantoprazole/ Sodium Chloride (Protonix Iv/NS) 100 ml @ 10 mls/hr Q10H IV Last administered on 02/19/17 23:22; Admin Dose 10 MLS/HR; Start 02/18/17 at 17:00 Diagnostic Test (Pha) (Accu-Chek) 1 ea 02 XX Last administered on 02/20/17 02 :00; Admin Dose 1 EA; Start 02/20/17 at 02:00 Insulin Glargine (Lantus) 8 unit DAILY@20 SC Last administered on 02/19/17 20 :51; Admin Dose 8 UNIT; Start 02/19/17 at 20:00 Insulin Aspart (Novolog Insulin Pen) NOVOLOG *MODERATE* ALGORITHM Q6 SC Last administered on 02/19/17 18:27; Admin Dose 8 UNIT; Start 02/19/17 at 12:00 Miscellaneous Information 1 ea NOTE XX ; Start 02/19/17 at 10:30 Glucose (Glutose) 15 gm Q15M PRN PO DECREASED GLUCOSE; Start 02/19/17 at 10:30 Glucose (Glutose) 22.5 gm Q15M PRN PO DECREASED GLUCOSE; Start 02/19/17 at 10: 30 Dextrose (D50w Syringe) 25 ml Q15M PRN IV DECREASED GLUCOSE; Start 02/19/17 at 10:30 Dextrose (D50w Syringe) 50 ml Q15M PRN IV DECREASED GLUCOSE; Start 02/19/17 at 10:30 Glucagon (Glucagen) 1 mg Q15M PRN IM DECREASED GLUCOSE; Start 02/19/17 at 10: 30 Glucose 15 gm 15 gm Q15M PRN BUCCAL DECREASED GLUCOSE; Start 02/19/17 at 10:30 Amiodarone HCl/ Dextrose (Cordarone Iv/ D5W) 500 ml @ 0 mls/hr Q0M IV ; Start 02/20/17 at 06:00; Stop 02/21/17 at 05:59 TOMASZ GARCIA Feb 20, 2017 09:02
--- NOTE | 2017-02-20 09:12 | CONS ---
Date/Time of Note Date/Time of Note DATE: 02/20/17 TIME: 09:09 Assessment/Plan Assessment/Plan Additional Assessment/Plan I have called patient's son unsuccessfully apparently he is in route to the hospital at this time. The ask case management to call me when they arrive and I believe at this time patient should be switched to comfort measures only. Consultation Date/Type/Reason Admit Date/Time Feb 12, 2017 at 13:47 Initial Consult Date 02/19/17 Type of Consultation: Palliative care Reason for Consultation Disregard last 2 dictations wrong patient wrong dictations they are in there were both dated February 19. Patient is in distress she has had a rapid response last night heart rate up into the 180s 190s today saturations 100% FiO2 BiPAP in the 90s. She remains noncommunicative nonresponsive to any verbal or tactile stimulation family members on room Exam/Review of Systems Vital Signs Vitals Vital Signs Date Time Temp Pulse Resp B/P Pulse Ox O2 Delivery O2 Flow Rate FiO2 02/20/17 08:14 89 02/20/17 07:45 98.4 53 122/66 96 02/20/17 07:25 100 02/19/17 16:04 Non Rebreather 15.0 Intake and Output 02/19/17 02/19/17 02/20/17 14:59 22:59 06:59 Intake Total 50 ml 1120 ml 1720 ml Output Total 300 ml 350 ml Balance 50 ml 820 ml 1370 ml Exam Constitutional: distress, non-verbal Respiratory: congested cough, crackles/rales, diminished breath sounds, intercostal retraction Cardiovascular: other (Rapid rate normal rhythm S1-S2 without S3-S4) Neurological: unresponsive Results Result Diagram: 02/20/17 0520 02/20/17 0520 Results 24 hrs Laboratory Tests Test 02/19/17 11:18 02/19/17 17:48 02/19/17 18:04 02/19/17 20:44 Bedside Glucose 369 H 276 H 257 H Blood Gas Specimen Source Blood arterial Arterial Blood Date Drawn 02/19/2017 6:25:00 PM Arterial Blood pH (Temp corrected) 7.450 Arterial Blood pCO2 (Temp correct) 25.5 L Arterial Blood pO2 (Temp corrected) 47.3 *L Arterial Blood HCO3 17.3 L Arterial Blood Base Excess -5.7 L Arterial Blood Oxygen Saturation 83.1 L Wilman Test ACCEPTAB Arterial Blood Gas Puncture Site Left Radial Arterial Blood Carboxyhemoglobin 0.3 Arterial Blood Methemoglobin 0.1 Blood Gas A-a O2 Differential 640.2 H Oxyhemoglobin Percent 82.8 L Total Hemoglobin 8.4 L Blood Gas Temperature 37.0 Blood Gas Modality MASK - NRB FiO2 100.0 Blood Gas Critical Value Read Back SANA ZENDEJAS Blood Gas Notified Whom LARON Blood Gas Notified Time 02/19/2017 6:36:00 PM Test 02/19/17 23:53 02/20/17 05:04 02/20/17 05:20 02/20/17 06:45 Bedside Glucose 141 119 Blood Gas Specimen Source Blood arterial Arterial Blood Date Drawn 02/20/2017 5:15:25 AM Arterial Blood pH (Temp corrected) 7.384 Arterial Blood pCO2 (Temp correct) 27.5 L Arterial Blood pO2 (Temp corrected) 51.5 *L Arterial Blood HCO3 16.0 L Arterial Blood Base Excess -7.8 L Arterial Blood Oxygen Saturation 84.9 L Wilman Test ACCEPTAB Arterial Blood Gas Puncture Site Right Radial Arterial Blood Carboxyhemoglobin 0.3 Arterial Blood Methemoglobin 0.1 Blood Gas A-a O2 Differential 634.0 H Oxyhemoglobin Percent 84.6 L Total Hemoglobin 9.9 L Blood Gas Temperature 37.0 Blood Gas Respiration Rate 18.0 Blood Gas Actual Respiration Rate 48 Blood Gas Modality BIPAP - S/T FiO2 100.0 Blood Gas Pressure Support 10 Blood Gas IPAP/EPAP Ratio 15/5 Blood Gas Critical Value Read Back Marshal RUIZ MD Blood Gas Notified Whom RTR Blood Gas Notified Time 02/20/2017 5:27:02 AM White Blood Count 23.0 #H Red Blood Count 2.97 #L Hemoglobin 9.1 #L Hematocrit 27.2 #L Mean Corpuscular Volume 91.6 Mean Corpuscular Hemoglobin 30.6 Mean Corpuscular Hemoglobin Concent 33.5 Red Cell Distribution Width 17.3 H Platelet Count 125 #L Mean Platelet Volume 13.0 H Neutrophils % Lymphocytes % Monocytes % Eosinophils % Basophils % Nucleated Red Blood Cells % 0.6 H Neutrophils # Lymphocytes # Monocytes # Eosinophils # Basophils # Nucleated Red Blood Cells # Sodium Level 150 H Potassium Level 3.1 L Chloride Level 114 H Carbon Dioxide Level 16 L Anion Gap 23 H Blood Urea Nitrogen 95 H Creatinine 3.31 H Glucose Level 301 H Calcium Level 8.0 L Phosphorus Level 4.8 Magnesium Level 2.2 Medications Medications Current Medications Ondansetron HCl (Zofran Inj) 4 mg Q6H PRN IV NAUSEA AND/OR VOMITING; Start at 15:30 Acetaminophen (Tylenol Supp) 650 mg Q6H PRN [place] PAIN LEVEL 1-3 OR FEVER Last administered on 02/18/17 00:19; Admin Dose 650 MG; Start 02/12/17 at 15:30 Bisacodyl (Dulcolax Supp) 10 mg DAILY PRN [place] CONSTIPATION; Start 02/12/17 at 15:30 Citalopram Hydrobromide (Celexa) 40 mg QAM NGT Last administered on 02/19/17 09:46; Admin Dose 40 MG; Start 02/13/17 at 09:00 Epoetin Weston 6000 units 6,000 units TuThSa@17 SC Last administered on 17:43; Admin Dose 6,000 UNITS; Start 02/15/17 at 17:00 Ferric Sodium Gluconate Complex 125 mg/Sodium Chloride 110 ml @ 110 mls/hr Q24H IVPB Last administered on 02/19/17 15:24; Admin Dose 110 MLS/HR; Start 02/15/17 at 16:00; Stop 02/22/17 at 16:59 Piperacillin Sod/ Tazobactam Sod (Zosyn 2.25gm/ 50ml (Pmx)) 50 ml @ 100 mls/hr Q6 IVPB Last administered on 02/20/17 06:03; Admin Dose 100 MLS/HR; Start at 11:30 Methylprednisolone Sodium Succinate 80 mg 80 mg Q8 IV Last administered on 06:03; Admin Dose 80 MG; Start 02/18/17 at 14:00 Sodium Chloride 1,000 ml @ 50 mls/hr Q20H IV Last administered on 02/19/17 23:20; Admin Dose 50 MLS/HR; Start 02/18/17 at 10:00 Pantoprazole/ Sodium Chloride (Protonix Iv/NS) 100 ml @ 10 mls/hr Q10H IV Last administered on 02/19/17 23:22; Admin Dose 10 MLS/HR; Start 02/18/17 at 17:00 Diagnostic Test (Pha) (Accu-Chek) 1 ea 02 XX Last administered on 02/20/17 02 :00; Admin Dose 1 EA; Start 02/20/17 at 02:00 Insulin Glargine (Lantus) 8 unit DAILY@20 SC Last administered on 02/19/17 20 :51; Admin Dose 8 UNIT; Start 02/19/17 at 20:00 Insulin Aspart (Novolog Insulin Pen) NOVOLOG *MODERATE* ALGORITHM Q6 SC Last administered on 02/19/17 18:27; Admin Dose 8 UNIT; Start 02/19/17 at 12:00 Miscellaneous Information 1 ea NOTE XX ; Start 02/19/17 at 10:30 Glucose (Glutose) 15 gm Q15M PRN PO DECREASED GLUCOSE; Start 02/19/17 at 10:30 Glucose (Glutose) 22.5 gm Q15M PRN PO DECREASED GLUCOSE; Start 02/19/17 at 10: 30 Dextrose (D50w Syringe) 25 ml Q15M PRN IV DECREASED GLUCOSE; Start 02/19/17 at 10:30 Dextrose (D50w Syringe) 50 ml Q15M PRN IV DECREASED GLUCOSE; Start 02/19/17 at 10:30 Glucagon (Glucagen) 1 mg Q15M PRN IM DECREASED GLUCOSE; Start 02/19/17 at 10: 30 Glucose 15 gm 15 gm Q15M PRN BUCCAL DECREASED GLUCOSE; Start 02/19/17 at 10:30 Amiodarone HCl/ Dextrose (Cordarone Iv/ D5W) 500 ml @ 0 mls/hr Q0M IV ; Start 02/20/17 at 06:00; Stop 02/21/17 at 05:59 TOMASZ GARCIA Feb 20, 2017 09:12
[2017-02-20] MEDS: PANTOPRAZOLE IV 80 MG in SOD CHLORIDE 0.9% 100 ML IV SCH (09:56)
[2017-02-20] MEDS: CITALOPRAM 20 MG TAB NGT SCH (09:59)
--- NOTE | 2017-02-20 10:08 | PN ---
Date/Time of Note Date/Time of Note DATE: 02/20/17 TIME: 10:07 Assessment/Plan VTE Prophylaxis VTE Prophylaxis Intervention: other Lines/Catheters IV C[facility] Type [facility] Saline Lock Urinary Cath still in place: Yes Reason Cath still needed: urinary retention Assessment/Plan Chief Complaint/Hosp Course SUBJECTIVE: all noted bp is now stable slightly hypoxemic no nausea, vomiting, new rash, hematuria, melena cxr reviewed uop remains low d/w Dr Reed OBJECTIVE: HEENT: Head is normocephalic. NECK: Supple. HEART: Regular rate. LUNGS: Show diminished breath sounds at base. ABDOMEN: Soft, nontender to palpation without rebound or guarding. EXTREMITIES: Negative for clubbing, cyanosis. Positive edema. DERMATOLOGIC: No rashes. MUSCULOSKELETAL: No joint effusions. NEUROLOGIC: No change in exam. MEDICATIONS: The patient's medications have been reviewed. ASSESSMENT AND PLAN: 1. Nonoliguric acute kidney injury on top of chronic kidney disease stage IV with previous baseline creatinine 2.2 mg/dL. Etiology secondary to acute tubular necrosis. The patient was initiated on hemodialysis. The patient has not been able to tolerate dialysis for the past few days due to hypotension. At this point, we will continue to monitor, attempt hemodialysis if the patient is hemodynamically stable. We will monitor for any signs of renal recovery. will hold off on HD until goals of care are clarified 2. Hyponatremia, improved. 3. Metabolic acidosis secondary to acute kidney injury, improved. 4. Hypokalemia. Will replete with potassium chloride 5. Hypomagnesemia, 6. Uremia with advanced Alzheimer dementia. Continue to monitor, continue dialysis as tolerated. 7. Sepsis secondary to urinary tract infection and pneumonia. Continue current antibiotic regimen. 8. Acute hypoxemic respiratory failure. Continue face mask. Follow up with pulmonary. 9. Mineral bone disorder. Monitor calcium and phosphorus levels. 10. Elevated troponin, which is demand ischemia. Continue to monitor. 11. Dysphagia status post NG tube. Continue tube feeding. 12. Anemia. Problems: Exam/Review of Systems Vital Signs Vitals Vital Signs Date Time Temp Pulse Resp B/P Pulse Ox O2 Delivery O2 Flow Rate FiO2 02/20/17 08:14 89 02/20/17 07:45 98.4 53 122/66 96 02/20/17 07:25 100 02/19/17 16:04 Non Rebreather 15.0 Intake and Output 02/19/17 02/19/17 02/20/17 15:00 23:00 07:00 Intake Total 50 ml 1120 ml 1720 ml Output Total 300 ml 350 ml Balance 50 ml 820 ml 1370 ml Results Result Diagram: 02/20/17 0520 02/20/17 0520 Results 24 hrs Laboratory Tests Test 02/19/17 11:18 02/19/17 17:48 02/19/17 18:04 02/19/17 20:44 Bedside Glucose 369 H 276 H 257 H Blood Gas Specimen Source Blood arterial Arterial Blood Date Drawn 02/19/2017 6:25:00 PM Arterial Blood pH (Temp corrected) 7.450 Arterial Blood pCO2 (Temp correct) 25.5 L Arterial Blood pO2 (Temp corrected) 47.3 *L Arterial Blood HCO3 17.3 L Arterial Blood Base Excess -5.7 L Arterial Blood Oxygen Saturation 83.1 L Wilman Test ACCEPTAB Arterial Blood Gas Puncture Site Left Radial Arterial Blood Carboxyhemoglobin 0.3 Arterial Blood Methemoglobin 0.1 Blood Gas A-a O2 Differential 640.2 H Oxyhemoglobin Percent 82.8 L Total Hemoglobin 8.4 L Blood Gas Temperature 37.0 Blood Gas Modality MASK - NRB FiO2 100.0 Blood Gas Critical Value Read Back SANA ZENDEJAS Blood Gas Notified Whom LARON Blood Gas Notified Time 02/19/2017 6:36:00 PM Test 02/19/17 23:53 02/20/17 05:04 02/20/17 05:20 02/20/17 06:45 Bedside Glucose 141 119 Blood Gas Specimen Source Blood arterial Arterial Blood Date Drawn 02/20/2017 5:15:25 AM Arterial Blood pH (Temp corrected) 7.384 Arterial Blood pCO2 (Temp correct) 27.5 L Arterial Blood pO2 (Temp corrected) 51.5 *L Arterial Blood HCO3 16.0 L Arterial Blood Base Excess -7.8 L Arterial Blood Oxygen Saturation 84.9 L Wilman Test ACCEPTAB Arterial Blood Gas Puncture Site Right Radial Arterial Blood Carboxyhemoglobin 0.3 Arterial Blood Methemoglobin 0.1 Blood Gas A-a O2 Differential 634.0 H Oxyhemoglobin Percent 84.6 L Total Hemoglobin 9.9 L Blood Gas Temperature 37.0 Blood Gas Respiration Rate 18.0 Blood Gas Actual Respiration Rate 48 Blood Gas Modality BIPAP - S/T FiO2 100.0 Blood Gas Pressure Support 10 Blood Gas IPAP/EPAP Ratio 15/5 Blood Gas Critical Value Read Back Marshal RUIZ MD Blood Gas Notified Whom RTR Blood Gas Notified Time 02/20/2017 5:27:02 AM White Blood Count 23.0 #H Red Blood Count 2.97 #L Hemoglobin 9.1 #L Hematocrit 27.2 #L Mean Corpuscular Volume 91.6 Mean Corpuscular Hemoglobin 30.6 Mean Corpuscular Hemoglobin Concent 33.5 Red Cell Distribution Width 17.3 H Platelet Count 125 #L Mean Platelet Volume 13.0 H Neutrophils % Lymphocytes % Monocytes % Eosinophils % Basophils % Nucleated Red Blood Cells % 0.6 H Neutrophils # Lymphocytes # Monocytes # Eosinophils # Basophils # Nucleated Red Blood Cells # Sodium Level 150 H Potassium Level 3.1 L Chloride Level 114 H Carbon Dioxide Level 16 L Anion Gap 23 H Blood Urea Nitrogen 95 H Creatinine 3.31 H Glucose Level 301 H Calcium Level 8.0 L Phosphorus Level 4.8 Magnesium Level 2.2 Medications Medications Current Medications Ondansetron HCl (Zofran Inj) 4 mg Q6H PRN IV NAUSEA AND/OR VOMITING; Start at 15:30 Acetaminophen (Tylenol Supp) 650 mg Q6H PRN [place] PAIN LEVEL 1-3 OR FEVER Last administered on 02/18/17 00:19; Admin Dose 650 MG; Start 02/12/17 at 15:30 Bisacodyl (Dulcolax Supp) 10 mg DAILY PRN [place] CONSTIPATION; Start 02/12/17 at 15:30 Citalopram Hydrobromide (Celexa) 40 mg QAM NGT Last administered on 02/19/17 09:46; Admin Dose 40 MG; Start 02/13/17 at 09:00 Epoetin Weston 6000 units 6,000 units TuThSa@17 SC Last administered on 17:43; Admin Dose 6,000 UNITS; Start 02/15/17 at 17:00 Ferric Sodium Gluconate Complex 125 mg/Sodium Chloride 110 ml @ 110 mls/hr Q24H IVPB Last administered on 02/19/17 15:24; Admin Dose 110 MLS/HR; Start 02/15/17 at 16:00; Stop 02/22/17 at 16:59 Piperacillin Sod/ Tazobactam Sod (Zosyn 2.25gm/ 50ml (Pmx)) 50 ml @ 100 mls/hr Q6 IVPB Last administered on 02/20/17 06:03; Admin Dose 100 MLS/HR; Start at 11:30 Methylprednisolone Sodium Succinate 80 mg 80 mg Q8 IV Last administered on 06:03; Admin Dose 80 MG; Start 02/18/17 at 14:00 Sodium Chloride 1,000 ml @ 50 mls/hr Q20H IV Last administered on 02/19/17 23:20; Admin Dose 50 MLS/HR; Start 02/18/17 at 10:00 Pantoprazole/ Sodium Chloride (Protonix Iv/NS) 100 ml @ 10 mls/hr Q10H IV Last administered on 02/19/17 23:22; Admin Dose 10 MLS/HR; Start 02/18/17 at 17:00 Diagnostic Test (Pha) (Accu-Chek) 1 ea 02 XX Last administered on 02/20/17 02 :00; Admin Dose 1 EA; Start 02/20/17 at 02:00 Insulin Glargine (Lantus) 8 unit DAILY@20 SC Last administered on 02/19/17 20 :51; Admin Dose 8 UNIT; Start 02/19/17 at 20:00 Insulin Aspart (Novolog Insulin Pen) NOVOLOG *MODERATE* ALGORITHM Q6 SC Last administered on 02/19/17 18:27; Admin Dose 8 UNIT; Start 02/19/17 at 12:00 Miscellaneous Information 1 ea NOTE XX ; Start 02/19/17 at 10:30 Glucose (Glutose) 15 gm Q15M PRN PO DECREASED GLUCOSE; Start 02/19/17 at 10:30 Glucose (Glutose) 22.5 gm Q15M PRN PO DECREASED GLUCOSE; Start 02/19/17 at 10: 30 Dextrose (D50w Syringe) 25 ml Q15M PRN IV DECREASED GLUCOSE; Start 02/19/17 at 10:30 Dextrose (D50w Syringe) 50 ml Q15M PRN IV DECREASED GLUCOSE; Start 02/19/17 at 10:30 Glucagon (Glucagen) 1 mg Q15M PRN IM DECREASED GLUCOSE; Start 02/19/17 at 10: 30 Glucose 15 gm 15 gm Q15M PRN BUCCAL DECREASED GLUCOSE; Start 02/19/17 at 10:30 Amiodarone HCl/ Dextrose (Cordarone Iv/ D5W) 500 ml @ 0 mls/hr Q0M IV ; Start 02/20/17 at 06:00; Stop 02/21/17 at 05:59 DIMITRY ENCINAS DO Feb 20, 2017 10:08
[2017-02-20] MEDS: DEXTROSE 5% 1,000 ML IV SCH ×2 (10:30→22:33)
[2017-02-20] MEDS ORDERED: LORAZEPAM 2 MG INJ IV PRN (11:00)
[2017-02-20] MEDS ORDERED: POTASSIUM CHLORIDE 20 MEQ in DEXTROSE 5% 100 ML IVPB ONE (11:00)
[2017-02-20 11:07] LABS: ANISOCYTOSIS 1+ (0-0); BURR CELLS 2+ (0-0); ERYTHROBLAST% (NRBC) (M) 1 % (0-0); MONOCYTES % (M) 3 % (0-11); PLATELET ESTIMATE NORMAL; POIKILOCYTOSIS 2+ (0-0); POLYCHROMASIA 1+ (0-0)
--- NOTE | 2017-02-20 11:25 | CONS ---
Date/Time of Note Date/Time of Note DATE: 02/20/17 TIME: 11:23 Assessment/Plan Assessment/Plan Additional Assessment/Plan Assessment and recommendations; 1. Patient admitted with severe bilateral pneumonia with superimposed CHF. 2. Profound hypoxemia. 3. Advanced dementia. 4. Renal failure, patient initiated on hemodialysis with inability to tolerate further sessions due to hemodynamic instability. Continue current treatment. Prognosis is extremely poor. Consultation Date/Type/Reason Admit Date/Time Feb 12, 2017 at 13:47 Initial Consult Date 02/19/17 Type of Consultation: Pulmonary 24 HR Interval Summary Free Text/Dictation Patient's condition remains extremely poor. Requiring BiPAP continuously. Patient does have episodes of hypoxemia despite being on 100% FiO2. Patient also has not been able to tolerate dialysis. General exam; elderly woman, unresponsive, currently in no distress. Exam/Review of Systems Vital Signs Vitals Vital Signs Date Time Temp Pulse Resp B/P Pulse Ox O2 Delivery O2 Flow Rate FiO2 02/20/17 11:03 97 91 10 02/20/17 07:45 98.4 53 122/66 02/19/17 16:04 Non Rebreather 15.0 Intake and Output 02/19/17 02/19/17 02/20/17 15:00 23:00 07:00 Intake Total 50 ml 1120 ml 1720 ml Output Total 300 ml 350 ml Balance 50 ml 820 ml 1370 ml Exam HEENT exam; supple neck, positive JVD. No lymphadenopathy. Midline trachea. Chest exam; poor breath sounds bilaterally. S1-S2 audible, no murmurs. Abdomen exam; soft, scaphoid. No organomegaly. Bowel sounds are absent. Extremity exam; no edema. STITCH RUBBER exam; patient remains unresponsive. Results Result Diagram: 02/20/17 0520 02/20/17 0520 Results 24 hrs Laboratory Tests Test 02/19/17 17:48 02/19/17 18:04 02/19/17 20:44 02/19/17 23:53 Blood Gas Specimen Source Blood arterial Arterial Blood Date Drawn 02/19/2017 6:25:00 PM Arterial Blood pH (Temp corrected) 7.450 Arterial Blood pCO2 (Temp correct) 25.5 L Arterial Blood pO2 (Temp corrected) 47.3 *L Arterial Blood HCO3 17.3 L Arterial Blood Base Excess -5.7 L Arterial Blood Oxygen Saturation 83.1 L Wilman Test ACCEPTAB Arterial Blood Gas Puncture Site Left Radial Arterial Blood Carboxyhemoglobin 0.3 Arterial Blood Methemoglobin 0.1 Blood Gas A-a O2 Differential 640.2 H Oxyhemoglobin Percent 82.8 L Total Hemoglobin 8.4 L Blood Gas Temperature 37.0 Blood Gas Modality MASK - NRB FiO2 100.0 Blood Gas Critical Value Read Back SANA ZENDEJAS Blood Gas Notified Whom LARON Blood Gas Notified Time 02/19/2017 6:36:00 PM Bedside Glucose 276 H 257 H 141 Test 02/20/17 05:04 02/20/17 05:20 02/20/17 06:45 Blood Gas Specimen Source Blood arterial Arterial Blood Date Drawn 02/20/2017 5:15:25 AM Arterial Blood pH (Temp corrected) 7.384 Arterial Blood pCO2 (Temp correct) 27.5 L Arterial Blood pO2 (Temp corrected) 51.5 *L Arterial Blood HCO3 16.0 L Arterial Blood Base Excess -7.8 L Arterial Blood Oxygen Saturation 84.9 L Wilman Test ACCEPTAB Arterial Blood Gas Puncture Site Right Radial Arterial Blood Carboxyhemoglobin 0.3 Arterial Blood Methemoglobin 0.1 Blood Gas A-a O2 Differential 634.0 H Oxyhemoglobin Percent 84.6 L Total Hemoglobin 9.9 L Blood Gas Temperature 37.0 Blood Gas Respiration Rate 18.0 Blood Gas Actual Respiration Rate 48 Blood Gas Modality BIPAP - S/T FiO2 100.0 Blood Gas Pressure Support 10 Blood Gas IPAP/EPAP Ratio 15/5 Blood Gas Critical Value Read Back Marshal RUIZ MD Blood Gas Notified Whom RTR Blood Gas Notified Time 02/20/2017 5:27:02 AM White Blood Count 23.0 #H Red Blood Count 2.97 #L Hemoglobin 9.1 #L Hematocrit 27.2 #L Mean Corpuscular Volume 91.6 Mean Corpuscular Hemoglobin 30.6 Mean Corpuscular Hemoglobin Concent 33.5 Red Cell Distribution Width 17.3 H Platelet Count 125 #L Mean Platelet Volume 13.0 H Neutrophils % Segmented Neutrophils % (Manual) 57 Band Neutrophils % (Manual) 33 H Lymphocytes % Lymphocytes % (Manual) 7 L Monocytes % Monocytes % (Manual) 3 Eosinophils % Basophils % Nucleated Red Blood Cells % 1 H Neutrophils # Neutrophils # (Manual) 14.8 H Band Neutrophils # 7.5 H Absolute Lymphocytes (Manual) 1.6 Lymphocytes # Monocytes # Absolute Monocytes (Manual) 0.6 Eosinophils # Basophils # Nucleated Red Blood Cells # Platelet Estimate NORMAL Polychromasia 1+ Poikilocytosis 2+ Anisocytosis 1+ Sodium Level 150 H Potassium Level 3.1 L Chloride Level 114 H Carbon Dioxide Level 16 L Anion Gap 23 H Blood Urea Nitrogen 95 H Creatinine 3.31 H Glucose Level 301 H Calcium Level 8.0 L Phosphorus Level 4.8 Magnesium Level 2.2 Bedside Glucose 119 Medications Medications Current Medications Ondansetron HCl (Zofran Inj) 4 mg Q6H PRN IV NAUSEA AND/OR VOMITING; Start at 15:30 Acetaminophen (Tylenol Supp) 650 mg Q6H PRN [place] PAIN LEVEL 1-3 OR FEVER Last administered on 02/18/17 00:19; Admin Dose 650 MG; Start 02/12/17 at 15:30 Bisacodyl (Dulcolax Supp) 10 mg DAILY PRN [place] CONSTIPATION; Start 02/12/17 at 15:30 Citalopram Hydrobromide (Celexa) 40 mg QAM NGT Last administered on 02/20/17 09:59; Admin Dose 40 MG; Start 02/13/17 at 09:00 Epoetin Weston 6000 units 6,000 units TuThSa@17 SC Last administered on 17:43; Admin Dose 6,000 UNITS; Start 02/15/17 at 17:00 Ferric Sodium Gluconate Complex 125 mg/Sodium Chloride 110 ml @ 110 mls/hr Q24H IVPB Last administered on 02/19/17 15:24; Admin Dose 110 MLS/HR; Start 02/15/17 at 16:00; Stop 02/22/17 at 16:59 Piperacillin Sod/ Tazobactam Sod (Zosyn 2.25gm/ 50ml (Pmx)) 50 ml @ 100 mls/hr Q6 IVPB Last administered on 02/20/17 06:03; Admin Dose 100 MLS/HR; Start at 11:30 Methylprednisolone Sodium Succinate 80 mg 80 mg Q8 IV Last administered on 06:03; Admin Dose 80 MG; Start 02/18/17 at 14:00 Pantoprazole/ Sodium Chloride (Protonix Iv/NS) 100 ml @ 10 mls/hr Q10H IV Last administered on 02/20/17 09:56; Admin Dose 10 MLS/HR; Start 02/18/17 at 17:00 Diagnostic Test (Pha) (Accu-Chek) 1 ea 02 XX Last administered on 02/20/17 02 :00; Admin Dose 1 EA; Start 02/20/17 at 02:00 Insulin Glargine (Lantus) 8 unit DAILY@20 SC Last administered on 02/19/17 20 :51; Admin Dose 8 UNIT; Start 02/19/17 at 20:00 Insulin Aspart (Novolog Insulin Pen) NOVOLOG *MODERATE* ALGORITHM Q6 SC Last administered on 02/19/17 18:27; Admin Dose 8 UNIT; Start 02/19/17 at 12:00 Miscellaneous Information 1 ea NOTE XX ; Start 02/19/17 at 10:30 Glucose (Glutose) 15 gm Q15M PRN PO DECREASED GLUCOSE; Start 02/19/17 at 10:30 Glucose (Glutose) 22.5 gm Q15M PRN PO DECREASED GLUCOSE; Start 02/19/17 at 10: 30 Dextrose (D50w Syringe) 25 ml Q15M PRN IV DECREASED GLUCOSE; Start 02/19/17 at 10:30 Dextrose (D50w Syringe) 50 ml Q15M PRN IV DECREASED GLUCOSE; Start 02/19/17 at 10:30 Glucagon (Glucagen) 1 mg Q15M PRN IM DECREASED GLUCOSE; Start 02/19/17 at 10: 30 Glucose 15 gm 15 gm Q15M PRN BUCCAL DECREASED GLUCOSE; Start 02/19/17 at 10:30 Amiodarone HCl 900 mg/Dextrose 500 ml @ 0 mls/hr Q0M IV ; Start 02/20/17 at 06: 00; Stop 02/21/17 at 05:59 Dextrose 1,000 ml @ 50 mls/hr Q20H IV ; Start 02/20/17 at 10:30 Potassium Chloride 20 meq/ Dextrose 110 ml @ 55 mls/hr ONCE ONCE IVPB ; Start 02/20/17 at 11:00; Stop 02/20/17 at 12:59 Morphine Sulfate/ Sodium Chloride (morphine) 100 ml @ 1 mls/hr TITRATE IV ; Start 02/20/17 at 11:30 Lorazepam (Ativan) 2 mg Q2H PRN IV agitation/anxiety/pain; Start 02/20/17 at 11:00 DENNIS LOWE Feb 20, 2017 11:25
--- NOTE | 2017-02-20 11:58 | PN ---
Date/Time of Note Date/Time of Note DATE: 02/20/17 TIME: 11:57 Assessment/Plan VTE Prophylaxis VTE Prophylaxis Intervention: SCD's Lines/Catheters IV Catheter Type (from Nrs): Saline Lock Urinary Cath still in place: Yes Reason Cath still needed: terminal illness/intractable pain Assessment/Plan Chief Complaint/Hosp Course Subjective 12.19 spoke with at length with and guidance and control system engineer at bedside 12.20 patient still not easily arousable 12.21 no acute changes in patient. 12.22 low BP and worsening hypoxia overnight 12.23 patient still having low normal o2 sat 12.24 patient's family now choosing comfort care. Objective Physical exam General: Patient is laying in bed, curled, difficult to arouse Mentation: Patient is not alert and oriented 4, Head: Normocephalic atraumatic Eyes: EOMI, pupils reactive to light Neck: Supple, nontender, midline Respiratory: coarse to auscultation bilaterally Cardiovascular: tachycardic, no obvious murmurs Gastrointestinal: non-tender to palpation, bowel sounds heard. Neurological: Moves all extremities spontaneously Skin: No new skin lesions Assessment/Plan Patient did poorly overnight, palliative care had another family meeting with patient's family, decided on comfort care at this time. start morphine drip. keep bipap on until patient's family has spent enough time with the patient. Problems: Exam/Review of Systems Vital Signs Vitals Vital Signs Date Time Temp Pulse Resp B/P Pulse Ox O2 Delivery O2 Flow Rate FiO2 02/20/17 11:43 98.1 96 49 146/78 93 02/20/17 11:03 10 02/19/17 16:04 Non Rebreather 15.0 Intake and Output 02/19/17 02/19/17 02/20/17 15:00 23:00 07:00 Intake Total 50 ml 1120 ml 1720 ml Output Total 300 ml 350 ml Balance 50 ml 820 ml 1370 ml Results Result Diagram: 02/20/17 0520 02/20/17 0520 Results 24 hrs Laboratory Tests Test 02/19/17 17:48 02/19/17 18:04 02/19/17 20:44 02/19/17 23:53 Blood Gas Specimen Source Blood arterial Arterial Blood Date Drawn 02/19/2017 6:25:00 PM Arterial Blood pH (Temp corrected) 7.450 Arterial Blood pCO2 (Temp correct) 25.5 L Arterial Blood pO2 (Temp corrected) 47.3 *L Arterial Blood HCO3 17.3 L Arterial Blood Base Excess -5.7 L Arterial Blood Oxygen Saturation 83.1 L Wilman Test ACCEPTAB Arterial Blood Gas Puncture Site Left Radial Arterial Blood Carboxyhemoglobin 0.3 Arterial Blood Methemoglobin 0.1 Blood Gas A-a O2 Differential 640.2 H Oxyhemoglobin Percent 82.8 L Total Hemoglobin 8.4 L Blood Gas Temperature 37.0 Blood Gas Modality MASK - NRB FiO2 100.0 Blood Gas Critical Value Read Back SANA ZENDEJAS Blood Gas Notified Whom LARON Blood Gas Notified Time 02/19/2017 6:36:00 PM Bedside Glucose 276 H 257 H 141 Test 02/20/17 05:04 02/20/17 05:20 02/20/17 06:45 Blood Gas Specimen Source Blood arterial Arterial Blood Date Drawn 02/20/2017 5:15:25 AM Arterial Blood pH (Temp corrected) 7.384 Arterial Blood pCO2 (Temp correct) 27.5 L Arterial Blood pO2 (Temp corrected) 51.5 *L Arterial Blood HCO3 16.0 L Arterial Blood Base Excess -7.8 L Arterial Blood Oxygen Saturation 84.9 L Wilman Test ACCEPTAB Arterial Blood Gas Puncture Site Right Radial Arterial Blood Carboxyhemoglobin 0.3 Arterial Blood Methemoglobin 0.1 Blood Gas A-a O2 Differential 634.0 H Oxyhemoglobin Percent 84.6 L Total Hemoglobin 9.9 L Blood Gas Temperature 37.0 Blood Gas Respiration Rate 18.0 Blood Gas Actual Respiration Rate 48 Blood Gas Modality BIPAP - S/T FiO2 100.0 Blood Gas Pressure Support 10 Blood Gas IPAP/EPAP Ratio 15/5 Blood Gas Critical Value Read Back Marshal RUIZ MD Blood Gas Notified Whom RTR Blood Gas Notified Time 02/20/2017 5:27:02 AM White Blood Count 23.0 #H Red Blood Count 2.97 #L Hemoglobin 9.1 #L Hematocrit 27.2 #L Mean Corpuscular Volume 91.6 Mean Corpuscular Hemoglobin 30.6 Mean Corpuscular Hemoglobin Concent 33.5 Red Cell Distribution Width 17.3 H Platelet Count 125 #L Mean Platelet Volume 13.0 H Neutrophils % Segmented Neutrophils % (Manual) 57 Band Neutrophils % (Manual) 33 H Lymphocytes % Lymphocytes % (Manual) 7 L Monocytes % Monocytes % (Manual) 3 Eosinophils % Basophils % Nucleated Red Blood Cells % 1 H Neutrophils # Neutrophils # (Manual) 14.8 H Band Neutrophils # 7.5 H Absolute Lymphocytes (Manual) 1.6 Lymphocytes # Monocytes # Absolute Monocytes (Manual) 0.6 Eosinophils # Basophils # Nucleated Red Blood Cells # Platelet Estimate NORMAL Polychromasia 1+ Poikilocytosis 2+ Anisocytosis 1+ Sodium Level 150 H Potassium Level 3.1 L Chloride Level 114 H Carbon Dioxide Level 16 L Anion Gap 23 H Blood Urea Nitrogen 95 H Creatinine 3.31 H Glucose Level 301 H Calcium Level 8.0 L Phosphorus Level 4.8 Magnesium Level 2.2 Bedside Glucose 119 Medications Medications Current Medications Ondansetron HCl (Zofran Inj) 4 mg Q6H PRN IV NAUSEA AND/OR VOMITING; Start at 15:30 Acetaminophen (Tylenol Supp) 650 mg Q6H PRN [place] PAIN LEVEL 1-3 OR FEVER Last administered on 02/18/17 00:19; Admin Dose 650 MG; Start 02/12/17 at 15:30 Bisacodyl (Dulcolax Supp) 10 mg DAILY PRN [place] CONSTIPATION; Start 02/12/17 at 15:30 Citalopram Hydrobromide (Celexa) 40 mg QAM NGT Last administered on 02/20/17 09:59; Admin Dose 40 MG; Start 02/13/17 at 09:00 Epoetin Weston 6000 units 6,000 units TuThSa@17 SC Last administered on 17:43; Admin Dose 6,000 UNITS; Start 02/15/17 at 17:00 Ferric Sodium Gluconate Complex 125 mg/Sodium Chloride 110 ml @ 110 mls/hr Q24H IVPB Last administered on 02/19/17 15:24; Admin Dose 110 MLS/HR; Start 02/15/17 at 16:00; Stop 02/22/17 at 16:59 Piperacillin Sod/ Tazobactam Sod (Zosyn 2.25gm/ 50ml (Pmx)) 50 ml @ 100 mls/hr Q6 IVPB Last administered on 02/20/17 06:03; Admin Dose 100 MLS/HR; Start at 11:30 Methylprednisolone Sodium Succinate 80 mg 80 mg Q8 IV Last administered on 06:03; Admin Dose 80 MG; Start 02/18/17 at 14:00 Pantoprazole/ Sodium Chloride (Protonix Iv/NS) 100 ml @ 10 mls/hr Q10H IV Last administered on 02/20/17 09:56; Admin Dose 10 MLS/HR; Start 02/18/17 at 17:00 Diagnostic Test (Pha) (Accu-Chek) 1 ea 02 XX Last administered on 02/20/17 02 :00; Admin Dose 1 EA; Start 02/20/17 at 02:00 Insulin Glargine (Lantus) 8 unit DAILY@20 SC Last administered on 02/19/17 20 :51; Admin Dose 8 UNIT; Start 02/19/17 at 20:00 Insulin Aspart (Novolog Insulin Pen) NOVOLOG *MODERATE* ALGORITHM Q6 SC Last administered on 02/19/17 18:27; Admin Dose 8 UNIT; Start 02/19/17 at 12:00 Miscellaneous Information 1 ea NOTE XX ; Start 02/19/17 at 10:30 Glucose (Glutose) 15 gm Q15M PRN PO DECREASED GLUCOSE; Start 02/19/17 at 10:30 Glucose (Glutose) 22.5 gm Q15M PRN PO DECREASED GLUCOSE; Start 02/19/17 at 10: 30 Dextrose (D50w Syringe) 25 ml Q15M PRN IV DECREASED GLUCOSE; Start 02/19/17 at 10:30 Dextrose (D50w Syringe) 50 ml Q15M PRN IV DECREASED GLUCOSE; Start 02/19/17 at 10:30 Glucagon (Glucagen) 1 mg Q15M PRN IM DECREASED GLUCOSE; Start 02/19/17 at 10: 30 Glucose 15 gm 15 gm Q15M PRN BUCCAL DECREASED GLUCOSE; Start 02/19/17 at 10:30 Amiodarone HCl 900 mg/Dextrose 500 ml @ 0 mls/hr Q0M IV ; Start 02/20/17 at 06: 00; Stop 02/21/17 at 05:59 Dextrose 1,000 ml @ 50 mls/hr Q20H IV ; Start 02/20/17 at 10:30 Potassium Chloride 20 meq/ Dextrose 110 ml @ 55 mls/hr ONCE ONCE IVPB ; Start 02/20/17 at 11:00; Stop 02/20/17 at 12:59 Morphine Sulfate/ Sodium Chloride (morphine) 100 ml @ 1 mls/hr TITRATE IV ; Start 02/20/17 at 11:30 Lorazepam (Ativan) 2 mg Q2H PRN IV agitation/anxiety/pain; Start 02/20/17 at 11:00 YOKASTA TONG Feb 20, 2017 11:58
[2017-02-20] MEDS: morphine (DRIP) 100 MG/100 ML 100 ML IV SCH ×2 (12:49→16:41)
--- NOTE | 2017-02-20 13:04 | CONS ---
Date/Time of Note Date/Time of Note DATE: 02/20/17 TIME: 13:03 Consult Date/Type/Reason Admit Date/Time Feb 12, 2017 at 13:47 Type of Consultation: cv Subjective Cardiology follow-up progress note: Subjective: Case discussed with staff and rhythm strip was reviewed. Patient remained in sinus rhythm/ sinus tachycardia. No episode of atrial fibrillation is reported. Patient remained nonverbal and is not able to provide history to me. on BIPAP Objective: General: elderly female in respiratory distress. Appeared to be thin and cachectic looking. On BIPAP and respiratory distress HEENT: NC/AT. eyes are closed. NECK: NO JVD. no stridor. CV: Tachycardic. Systolic murmur; no gallop or rubs. PULM: Diffuse rhonchi. Positive respiratory distress GI: SOFT, NT, ND, no rebound or guarding Extremity: + lower and upper extremity edema. neuro: Lethargic Psych: calm rectal: deferred : Deferred Objective Vital Signs Date Time Temp Pulse Resp B/P Pulse Ox O2 Delivery O2 Flow Rate FiO2 02/20/17 12:10 96 02/20/17 11:43 98.1 49 146/78 93 02/20/17 11:03 10 02/19/17 16:04 Non Rebreather 15.0 Intake and Output 02/19/17 02/19/17 02/20/17 15:00 23:00 07:00 Intake Total 50 ml 1120 ml 1720 ml Output Total 300 ml 350 ml Balance 50 ml 820 ml 1370 ml Results/Medications Result Diagram: 02/20/17 0520 02/20/17 0520 Results 24 hrs Laboratory Tests Test 02/19/17 17:48 02/19/17 18:04 02/19/17 20:44 02/19/17 23:53 Blood Gas Specimen Source Blood arterial Arterial Blood Date Drawn 02/19/2017 6:25:00 PM Arterial Blood pH (Temp corrected) 7.450 Arterial Blood pCO2 (Temp correct) 25.5 L Arterial Blood pO2 (Temp corrected) 47.3 *L Arterial Blood HCO3 17.3 L Arterial Blood Base Excess -5.7 L Arterial Blood Oxygen Saturation 83.1 L Wilman Test ACCEPTAB Arterial Blood Gas Puncture Site Left Radial Arterial Blood Carboxyhemoglobin 0.3 Arterial Blood Methemoglobin 0.1 Blood Gas A-a O2 Differential 640.2 H Oxyhemoglobin Percent 82.8 L Total Hemoglobin 8.4 L Blood Gas Temperature 37.0 Blood Gas Modality MASK - NRB FiO2 100.0 Blood Gas Critical Value Read Back SANA ZENDEJAS Blood Gas Notified Whom YomairaODOM Blood Gas Notified Time 02/19/2017 6:36:00 PM Bedside Glucose 276 H 257 H 141 Test 02/20/17 05:04 02/20/17 05:20 02/20/17 06:45 Blood Gas Specimen Source Blood arterial Arterial Blood Date Drawn 02/20/2017 5:15:25 AM Arterial Blood pH (Temp corrected) 7.384 Arterial Blood pCO2 (Temp correct) 27.5 L Arterial Blood pO2 (Temp corrected) 51.5 *L Arterial Blood HCO3 16.0 L Arterial Blood Base Excess -7.8 L Arterial Blood Oxygen Saturation 84.9 L Wilman Test ACCEPTAB Arterial Blood Gas Puncture Site Right Radial Arterial Blood Carboxyhemoglobin 0.3 Arterial Blood Methemoglobin 0.1 Blood Gas A-a O2 Differential 634.0 H Oxyhemoglobin Percent 84.6 L Total Hemoglobin 9.9 L Blood Gas Temperature 37.0 Blood Gas Respiration Rate 18.0 Blood Gas Actual Respiration Rate 48 Blood Gas Modality BIPAP - S/T FiO2 100.0 Blood Gas Pressure Support 10 Blood Gas IPAP/EPAP Ratio 15/5 Blood Gas Critical Value Read Back Marshal RUIZ MD Blood Gas Notified Whom RTR Blood Gas Notified Time 02/20/2017 5:27:02 AM White Blood Count 23.0 #H Red Blood Count 2.97 #L Hemoglobin 9.1 #L Hematocrit 27.2 #L Mean Corpuscular Volume 91.6 Mean Corpuscular Hemoglobin 30.6 Mean Corpuscular Hemoglobin Concent 33.5 Red Cell Distribution Width 17.3 H Platelet Count 125 #L Mean Platelet Volume 13.0 H Neutrophils % Segmented Neutrophils % (Manual) 57 Band Neutrophils % (Manual) 33 H Lymphocytes % Lymphocytes % (Manual) 7 L Monocytes % Monocytes % (Manual) 3 Eosinophils % Basophils % Nucleated Red Blood Cells % 1 H Neutrophils # Neutrophils # (Manual) 14.8 H Band Neutrophils # 7.5 H Absolute Lymphocytes (Manual) 1.6 Lymphocytes # Monocytes # Absolute Monocytes (Manual) 0.6 Eosinophils # Basophils # Nucleated Red Blood Cells # Platelet Estimate NORMAL Polychromasia 1+ Poikilocytosis 2+ Anisocytosis 1+ Sodium Level 150 H Potassium Level 3.1 L Chloride Level 114 H Carbon Dioxide Level 16 L Anion Gap 23 H Blood Urea Nitrogen 95 H Creatinine 3.31 H Glucose Level 301 H Calcium Level 8.0 L Phosphorus Level 4.8 Magnesium Level 2.2 Bedside Glucose 119 Medications Current Medications Ondansetron HCl (Zofran Inj) 4 mg Q6H PRN IV NAUSEA AND/OR VOMITING; Start at 15:30 Acetaminophen (Tylenol Supp) 650 mg Q6H PRN [place] PAIN LEVEL 1-3 OR FEVER Last administered on 02/18/17 00:19; Admin Dose 650 MG; Start 02/12/17 at 15:30 Bisacodyl (Dulcolax Supp) 10 mg DAILY PRN [place] CONSTIPATION; Start 02/12/17 at 15:30 Citalopram Hydrobromide (Celexa) 40 mg QAM NGT Last administered on 02/20/17 09:59; Admin Dose 40 MG; Start 02/13/17 at 09:00 Epoetin [place] 6000 units 6,000 units TuThSa@17 SC Last administered on 17:43; Admin Dose 6,000 UNITS; Start 02/15/17 at 17:00 Ferric Sodium Gluconate Complex 125 mg/Sodium Chloride 110 ml @ 110 mls/hr Q24H IVPB Last administered on 02/19/17 15:24; Admin Dose 110 MLS/HR; Start 02/15/17 at 16:00; Stop 02/22/17 at 16:59 Piperacillin Sod/ Tazobactam Sod (Zosyn 2.25gm/ 50ml (Pmx)) 50 ml @ 100 mls/hr Q6 IVPB Last administered on 02/20/17 06:03; Admin Dose 100 MLS/HR; Start at 11:30 Methylprednisolone Sodium Succinate 80 mg 80 mg Q8 IV Last administered on 06:03; Admin Dose 80 MG; Start 02/18/17 at 14:00 Pantoprazole/ Sodium Chloride (Protonix Iv/NS) 100 ml @ 10 mls/hr Q10H IV Last administered on 02/20/17 09:56; Admin Dose 10 MLS/HR; Start 02/18/17 at 17:00 Diagnostic Test (Pha) (Accu-Chek) 1 ea 02 XX Last administered on 02/20/17 02 :00; Admin Dose 1 EA; Start 02/20/17 at 02:00 Insulin Glargine (Lantus) 8 unit DAILY@20 SC Last administered on 02/19/17 20 :51; Admin Dose 8 UNIT; Start 02/19/17 at 20:00 Insulin Aspart (Novolog Insulin Pen) NOVOLOG *MODERATE* ALGORITHM Q6 SC Last administered on 02/19/17 18:27; Admin Dose 8 UNIT; Start 02/19/17 at 12:00 Miscellaneous Information 1 ea NOTE XX ; Start 02/19/17 at 10:30 Glucose (Glutose) 15 gm Q15M PRN PO DECREASED GLUCOSE; Start 02/19/17 at 10:30 Glucose (Glutose) 22.5 gm Q15M PRN PO DECREASED GLUCOSE; Start 02/19/17 at 10: 30 Dextrose (D50w Syringe) 25 ml Q15M PRN IV DECREASED GLUCOSE; Start 02/19/17 at 10:30 Dextrose (D50w Syringe) 50 ml Q15M PRN IV DECREASED GLUCOSE; Start 02/19/17 at 10:30 Glucagon (Glucagen) 1 mg Q15M PRN IM DECREASED GLUCOSE; Start 02/19/17 at 10: 30 Glucose 15 gm 15 gm Q15M PRN BUCCAL DECREASED GLUCOSE; Start 02/19/17 at 10:30 Amiodarone HCl 900 mg/Dextrose 500 ml @ 0 mls/hr Q0M IV ; Start 02/20/17 at 06: 00; Stop 02/21/17 at 05:59 Dextrose 1,000 ml @ 50 mls/hr Q20H IV ; Start 02/20/17 at 10:30 Morphine Sulfate/ Sodium Chloride (morphine) 100 ml @ 1 mls/hr TITRATE IV ; Start 02/20/17 at 11:30 Lorazepam (Ativan) 2 mg Q2H PRN IV agitation/anxiety/pain; Start 02/20/17 at 11:00 Assessment/Plan Chief Complaint/Hosp Course ASSESSMENT AND PLAN: 1. Sinus tachycardia, appeared to be multifactorial secondary to severe worsening anemia, respiratory failure, sepsis, etc. 2. Severe sepsis and dehydration, urinary tract infection with gram negative rods. 3. Severe hypernatremia. 4. Acute renal failure. 5. Severe encephalopathy secondary to above. 6. Worsening anemia. 7. Dehydration. 8. Mildly elevated troponin secondary to above. 9. Transaminitis. 10. History of dementia. 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 12. Malnutrition and low albumin level. 13. Dysphagia. RECOMMENDATIONS: Continue with the supportive care. Code status is DNR and prognosis is very poor. IV fluid is being managed as per renal team. Follow up renal function and recommendation. replace lytes PRN cont Nutritional support as tolerated. Prognosis is very poor. f/u with palliative care rec. Thank you for this referral. We will continue to follow along with you. Problems: CHU SMART MD Feb 20, 2017 13:04
[2017-02-21] VITALS (18 sets, daily range): BP systolic 126–159; BP diastolic 68–72; PULSE 73–124; RESP 22–26
[2017-02-21] MEDS: DEXTROSE 5% 1,000 ML IV SCH ×2 (04:56→17:34)
--- NOTE | 2017-02-21 08:55 | PN ---
DATE: 02/21/2017 SUBJECTIVE: The patient is on comfort measures. No other events noted. OBJECTIVE: VITAL SIGNS: Blood pressure is 144/72, respiration 26, pulse 107, temperature 97.8. HEENT: Head is normocephalic. NECK: Supple. HEART: Regular rate. LUNGS: Show diminished breath sounds at the base. ABDOMEN: Soft, nontender to palpation. No rebound or guarding. EXTREMITIES: Negative for clubbing, cyanosis. No edema. DERMATOLOGIC: No rashes. MUSCULOSKELETAL: No joint effusions. NEUROLOGIC: No change in exam. MEDICATIONS: Have been reviewed. LABORATORY DATA: Has been reviewed. ASSESSMENT AND PLAN: 1. Nonoliguric acute kidney injury. 2. Hyponatremia. 3. Metabolic acidosis. 4. Hyperkalemia. 5. Uremia. 6. Alzheimer dementia. 7. Sepsis. 8. Hypoxemic respiratory failure. 9. Mineral bone disorder. 10. Dysphagia. PLAN: The patient is currently on comfort measures and morphine drip. We will sign off. Please re consult as needed. Dictated By: CASA CROSS/FANNY Conf#: [id number] DID#: [id number]
--- NOTE | 2017-02-21 10:18 | PN ---
Date/Time of Note Date/Time of Note DATE: 02/21/17 TIME: 10:17 Assessment/Plan VTE Prophylaxis VTE Prophylaxis Intervention: SCD's Lines/Catheters IV Catheter Type (from Nrsg): Saline Lock Urinary Cath still in place: Yes Reason Cath still needed: terminal illness/intractable pain Assessment/Plan Chief Complaint/Hosp Course Assessment/Plan Anemia Continue PPI tx Severe sepsis secondary to dehydration and UTI UTI- on ABX Bilat PNA- on ABX PANCHO on CKD Dehydration Severe hypernatremia Hyperkalemia Transaminitis R/T dehydration Leukocytosis Elevated troponin Dementia Plan: Comfort care Patient seen in collaboration with Dr. Abdi Subjective: Course reviewed with nursing staff Patient interviewed and examined All labs, imaging and other results reviewed The patient has been changed to comfort care. GI will sign off at this time, but will be available if any changes occur. PHYSICAL EXAMINATION: GENERAL: ill appearing, non-verbal SKIN: No lesions, no stigmata chronic liver disease, no evidence of bleeding diathesis LYMPHATIC: No palpable lymphadenopathy. HEAD: Normocephalic, atraumatic, no tenderness. EYES: No discharge. EARS/NOSE AND THROAT: Ears normal, nose normal, oropharynx normal, oral membranes well hydrated without lesions. NECK: Supple, no masses, thyroid normal. CHEST: Inspection within normal limits. CARDIOVASCULAR: Heart:, Hypotension RESPIRATORY: Rales, diminished GASTROINTESTINAL AND LIVER: Abdomen: Soft, non tenderness, non-distended, no hernias, no masses, no organomegaly, no ascites, no guarding, no rebound tenderness, normoactive bowel sounds. Rectal: Deferred. GENITOURINARY: Female genitalia within normal limits, catheter in place EXTREMITIES: anasarca Problems: Exam/Review of Systems Vital Signs Vitals Vital Signs Date Time Temp Pulse Resp B/P Pulse Ox O2 Delivery O2 Flow Rate FiO2 02/21/17 07:39 97.6 105 22 126/69 91 02/21/17 06:04 100 02/19/17 16:04 Non Rebreather 15.0 Intake and Output 02/20/17 02/20/17 02/21/17 15:00 23:00 07:00 Intake Total 0 ml 325 ml Output Total 600 ml 50 ml Balance -600 ml 275 ml Results Result Diagram: 02/20/1751902/20/17 0520 Medications Medications Current Medications Ondansetron HCl (Zofran Inj) 4 mg Q6H PRN IV NAUSEA AND/OR VOMITING; Start at 15:30 Acetaminophen (Tylenol Supp) 650 mg Q6H PRN [place] PAIN LEVEL 1-3 OR FEVER Last administered on 02/18/17 00:19; Admin Dose 650 MG; Start 02/12/17 at 15:30 Bisacodyl (Dulcolax Supp) 10 mg DAILY PRN [place] CONSTIPATION; Start 02/12/17 at 15:30 Miscellaneous Information 1 ea NOTE XX ; Start 02/19/17 at 10:30 Dextrose (D50w Syringe) 25 ml Q15M PRN IV DECREASED GLUCOSE; Start 02/19/17 at 10:30 Dextrose 50 ml 50 ml Q15M PRN IV DECREASED GLUCOSE; Start 02/19/17 at 10:30 Dextrose 1,000 ml @ 50 mls/hr Q20H IV Last administered on 02/20/17 22:33; Admin Dose 50 MLS/HR; Start 02/20/17 at 10:30 Morphine Sulfate/ Sodium Chloride (morphine) 100 ml @ 1 mls/hr TITRATE IV Last administered on 02/20/17 16:41; Admin Dose 2 MLS/HR; Start 02/20/17 at 11:30 Lorazepam (Ativan) 2 mg Q2H PRN IV agitation/anxiety/pain; Start 02/20/17 at 11:00 LEI MONTES Feb 21, 2017 10:18
--- NOTE | 2017-02-21 17:24 | PN ---
Date/Time of Note Date/Time of Note DATE: 02/21/17 TIME: 17:22 Assessment/Plan VTE Prophylaxis VTE Prophylaxis Intervention: SCD's Lines/Catheters IV Catheter Type (from Nrsg): Peripheral IV Urinary Cath still in place: Yes Reason Cath still needed: terminal illness/intractable pain Assessment/Plan Chief Complaint/Hosp Course Subjective: Events noted. Remains on comfort care protocol Objective: Stable/expected Physical examdeferred patient on comfort care Assessment and plan 1. Acute sepsis due to acute cystitis/encephalopathy, monitor stable cont, comfort care 2. Acute cystitis 3. Acute encephalopathy 4. Chronic dementia 5. Hypernatremia/hypokalemia 6. Aortic stenosis-mod 7. Anemia 8. Shock liver? Problems: Exam/Review of Systems Vital Signs Vitals Vital Signs Date Time Temp Pulse Resp B/P Pulse Ox O2 Delivery O2 Flow Rate FiO2 02/21/17 14:45 101 24 134/68 95 BIPAP 02/21/17 14:25 100 02/21/17 13:47 97.2 02/19/17 16:04 15.0 Intake and Output 02/20/17 02/20/17 02/21/17 15:00 23:00 07:00 Intake Total 0 ml 325 ml Output Total 600 ml 50 ml Balance -600 ml 275 ml Results Result Diagram: 02/20/1751902/20/17 0520 Medications Medications Current Medications Ondansetron HCl (Zofran Inj) 4 mg Q6H PRN IV NAUSEA AND/OR VOMITING; Start at 15:30 Acetaminophen (Tylenol Supp) 650 mg Q6H PRN [place] PAIN LEVEL 1-3 OR FEVER Last administered on 02/18/17 00:19; Admin Dose 650 MG; Start 02/12/17 at 15:30 Bisacodyl (Dulcolax Supp) 10 mg DAILY PRN [place] CONSTIPATION; Start 02/12/17 at 15:30 Miscellaneous Information 1 ea NOTE XX ; Start 02/19/17 at 10:30 Dextrose (D50w Syringe) 25 ml Q15M PRN IV DECREASED GLUCOSE; Start 02/19/17 at 10:30 Dextrose 50 ml 50 ml Q15M PRN IV DECREASED GLUCOSE; Start 02/19/17 at 10:30 Dextrose 1,000 ml @ 50 mls/hr Q20H IV Last administered on 02/20/17 22:33; Admin Dose 50 MLS/HR; Start 02/20/17 at 10:30 Morphine Sulfate/ Sodium Chloride (morphine) 100 ml @ 1 mls/hr TITRATE IV Last administered on 02/20/17 16:41; Admin Dose 2 MLS/HR; Start 02/20/17 at 11:30 Lorazepam (Ativan) 2 mg Q2H PRN IV agitation/anxiety/pain; Start 02/20/17 at 11:00 ARA MORTON MD Feb 21, 2017 17:24
[2017-02-22] VITALS (16 sets, daily range): BP systolic 86–113; BP diastolic 48–59; PULSE 92–123; RESP 18–26
[2017-02-22] MEDS: DEXTROSE 5% 1,000 ML IV SCH (02:30)
--- NOTE | 2017-02-22 12:57 | PN ---
Date/Time of Note Date/Time of Note DATE: 02/22/17 TIME: 12:56 Assessment/Plan VTE Prophylaxis VTE Prophylaxis Intervention: SCD's Lines/Catheters IV Catheter Type (from Nrsg): Peripheral IV Urinary Cath still in place: Yes Reason Cath still needed: terminal illness/intractable pain Assessment/Plan Chief Complaint/Hosp Course Subjective: 02/21 Events noted. Remains on comfort care protocol 02/22 remains on cc protocol. dc tube feeds? Objective: Stable/expected Physical exam -Deferred patient on comfort care Assessment and plan 1. Acute sepsis due to acute cystitis/encephalopathy, monitor stable cont, comfort care. dc feeds?? no benefit. vs SNF w Hospice. 2. Acute cystitis 3. Acute encephalopathy 4. Chronic dementia 5. Hypernatremia/hypokalemia 6. Aortic stenosis-mod 7. Anemia 8. Shock liver? Problems: Exam/Review of Systems Vital Signs Vitals Vital Signs Date Time Temp Pulse Resp B/P Pulse Ox O2 Delivery O2 Flow Rate FiO2 02/22/17 11:40 97 100 02/22/17 07:31 98.9 22 103/56 90 02/21/17 14:45 BIPAP 02/19/17 16:04 15.0 Intake and Output 02/21/17 02/21/17 02/22/17 15:00 23:00 07:00 Intake Total 775 ml 575 ml Output Total 475 ml Balance 300 ml 575 ml Results Result Diagram: 02/20/17 0520 02/20/17 0520 Medications Medications Current Medications Ondansetron HCl (Zofran Inj) 4 mg Q6H PRN IV NAUSEA AND/OR VOMITING; Start at 15:30 Acetaminophen (Tylenol Supp) 650 mg Q6H PRN [place] PAIN LEVEL 1-3 OR FEVER Last administered on 02/18/17t 00:19; Admin Dose 650 MG; Start 02/12/17 at 15:30 Bisacodyl (Dulcolax Supp) 10 mg DAILY PRN [place] CONSTIPATION; Start 02/12/17 at 15:30 Miscellaneous Information 1 ea NOTE XX ; Start 02/19/17 at 10:30 Dextrose (D50w Syringe) 25 ml Q15M PRN IV DECREASED GLUCOSE; Start 02/19/17 at 10:30 Dextrose 50 ml 50 ml Q15M PRN IV DECREASED GLUCOSE; Start 02/19/17 at 10:30 Dextrose 1,000 ml @ 50 mls/hr Q20H IV Last administered on 02/21/17 17:34; Admin Dose 50 MLS/HR; Start 02/20/17 at 10:30 Morphine Sulfate/ Sodium Chloride (morphine) 100 ml @ 1 mls/hr TITRATE IV Last administered on 02/20/17 16:41; Admin Dose 2 MLS/HR; Start 02/20/17 at 11:30 Lorazepam (Ativan) 2 mg Q2H PRN IV agitation/anxiety/pain; Start 02/20/17 at 11:00 ARA MORTON MD Feb 22, 2017 12:57
[2017-02-22] MEDS: morphine (DRIP) 100 MG/100 ML 100 ML IV SCH (13:01)
--- NOTE | 2017-02-22 15:36 | RADRPT ---
Vent Rate: 90 bpm RR Interval: 0 msec [place] Interval: 114 msec QRS Duration: 100 msec QT Interval: 380 msec QTC Interval: 464 msec P-R-T [place]: 21 - -25 - 109 degrees Sinus rhythm Artifact Low voltage QRS Nonspecific ST and T wave abnormality Abnormal ECG Electronically Signed By: Azael Shea [id number]
[2017-02-23 01:06] VITALS: PULSE 101
[2017-02-23 01:46] VITALS: BP 90/45; RESP 15
[2017-02-23 03:05] VITALS: PULSE 105
--- NOTE | 2017-02-23 05:03 | EN ---
Date/Time of Note Date/Time of Note DATE: 02/23/17 TIME: 05:00 Event Note Medicine Medicine Event Note Pronouncement Note Patient non responsive to verbal stimuli. Non responsive to vigorous sternal rub. No heart sounds appreciated on auscultation. Pupils fixed and non reactive to light bilaterally. Patient pronounced at approx. 4:55AM. primary team aware. Family will be notified by the RN. Patient was on comfort care. JOAN MEDINA Feb 23, 2017 05:03
--- NOTE | 2017-02-23 19:19 | DS ---
Date/Time of Note Date/Time of Note DATE: 02/23/17 TIME: 19:14 Discharge Summary Admission/Discharge Info Admit Date/Time Feb 12, 2017 at 13:47 Discharge Date/Time Feb 23, 2017 at 05:00 Discharge Diagnosis Cardiac Arrest Respiratory Failure Patient Condition: Critical Procedures CXR Hx of Present Illness 81F w dementia on comfort care, admitted w encephalopathy. Hospital Course Subjective: found to have encephalopathy, respiratory failure. possible pneumonia. dpoa recommends to continue comfort care 02/21 Events noted. Remains on comfort care protocol 02/22 remains on cc protocol. dc tube feeds? Objective: Stable/expected Physical exam -Deferred patient on comfort care Assessment and plan 1. Acute sepsis due to acute cystitis/encephalopathy. Possible pneumonia. monitor, stable cont comfort care. dc feeds?? no benefit. vs SNF w Hospice. 2. Acute cystitis 3. Acute encephalopathy 4. Chronic dementia 5. Hypernatremia/hypokalemia 6. Aortic stenosis-mod 7. Anemia 8. Shock liver? -- 04:55 02/23. Son Freedom informed by staff. Home Meds Reported Medications Risperidone* (Risperdal*) 0.25 Mg Tablet, 0.25 MG PO BID, TAB 02/12/17 Trazodone Hcl* (Trazodone Hcl*) 150 Mg Tablet, 150 MG PO QHS, #30 TAB 02/12/17 Tramadol Hcl* (Ultram*) 50 Mg Tablet, 50 MG PO BID Y for PAIN, TAB 02/12/17 Citalopram Hydrobromide* (Citalopram Hydrobromide*) 40 Mg Tablet, 40 MG PO QAM, #30 TAB 02/12/17 Oxybutynin Chloride* (Ditropan*) 5 Mg Tab, 5 MG PO BID, TAB 02/12/17 Gabapentin* (Gabapentin*) 300 Mg Capsule, 300 MG PO BID, #60 CAP 02/12/17 Lovastatin* (Lovastatin*) 20 Mg Tablet, 20 MG PO HS, TAB 02/12/17 Primary Care Provider Not On Staff Doctor Time spent on discharge: > 30 minutes ARA MORTON MD Feb 23, 2017 19:19
== END 2017-02-23 05:00 | disposition expired | DRG 871 ==
LOC: E/R 11:26 → MS4 13:47 → MS2 02-20 17:34
PROVIDERS: ADMIT Internal Medicine; ATTEND Internal Medicine
PROC: 06PY33Z Removal of Infusion Device from Lower Vein, Percutaneous Approach (ICD-10-PCS; principal; 2017-02-12)
PROC: 06HM33Z Insertion of Infusion Device into Right Femoral Vein, Percutaneous Approach (ICD-10-PCS; 2017-02-12)
DX: A41.51 Sepsis due to Escherichia coli [E. coli] (principal); N17.0 Acute kidney failure with tubular necrosis; J96.21 Acute and chronic respiratory failure with hypoxia; K72.00 Acute and subacute hepatic failure without coma; G93.49 Other encephalopathy; E87.0 Hyperosmolality and hypernatremia; E46 Unspecified protein-calorie malnutrition; E87.2 Acidosis; N18.4 Chronic kidney disease, stage 4 (severe); I82.612 Acute embolism and thrombosis of superficial veins of left upper extremity; N30.00 Acute cystitis without hematuria; R65.20 Severe sepsis without septic shock; B96.20 Unspecified Escherichia coli [E. coli] as the cause of diseases classified elsewhere; E86.0 Dehydration; E87.5 Hyperkalemia; Z66 Do not resuscitate; Z97.8 Presence of other specified devices; I12.9 Hypertensive chronic kidney disease with stage 1 through stage 4 chronic kidney disease, or unspecified chronic kidney disease; Z99.2 Dependence on renal dialysis; D64.9 Anemia, unspecified; E83.9 Disorder of mineral metabolism, unspecified; I46.9 Cardiac arrest, cause unspecified; I35.0 Nonrheumatic aortic (valve) stenosis; G30.9 Alzheimer's disease, unspecified; F02.80 Dementia in other diseases classified elsewhere, unspecified severity, without behavioral disturbance, psychotic disturbance, mood disturbance, and anxiety
CPT/HCPCS: 36415; 36430; 36600; 70450; 71010; 71250; 80048; 80053; 80202; 81001; 82140; 82270; 82728; 82803; 82962; 83540; 83605; 83735; 84100; 84484; 85014; 85018; 85025; 85378; 85384; 85610; 85730; 86644; 86850; 86900; 86901; 86920; 87040; 87086; 90935; 93005; 93306; 93971; 94640; 94660; 94664; 94799; 96365; 96366; 96368; 96375; C9113; J0153; J0282; J0696; J0886; J1815; J2150; J2270; J2543; J2916; J2930; J3370; J3475; J3480; J7030; J7040; J7050; J7060; J7070; P9016; P9035; P9047